=== PATIENT | male | born 1940 | race Caucasian/White ===

== ENCOUNTER → 2017-05-03 | Outpatient (CLI) | payer MEDICARE, BC ==
--- NOTE | 2017-05-03 15:47 | XR ---
Left wrist HISTORY: Trauma and pain 4 views of the left wrist No comparisons Bone mineralization is reduced. Alignment is maintained. No fracture or dislocation is evident. Joint space loss present at the radiocarpal joint. Subchondral sclerosis present at the carpometacarpal zhou int of the first digit with joint space loss. IMPRESSION: Osteoarthritis. Low bone mineralization could limit sensitivity, no acute abnormalities e vident. Follow-up as indicated.
== END | disposition home or self-care (01) ==
LOC: RADXRMAIN 14:42
PROVIDERS: ATTEND Family Medicine
DX: M81.0 Age-related osteoporosis without current pathological fracture (principal)

== ENCOUNTER 2017-07-18 10:42 | Day surgery (SDC) | payer MEDICARE ==
[2017-07-15 09:08] VITALS: BMI 20.9
[~2017-07-18 10:42] MED LIST: LACTATED RINGERS 1,000 ML IV SCH
[2017-07-18 11:17] VITALS: RESP 16; TEMP 98.2
[2017-07-18] MEDS ORDERED: PROPOFOL 10 MG/ML 20 ML VIAL IV ONE (12:05)
[2017-07-18] MEDS ORDERED: LIDOCAINE 1% INJ 10MG/ML (20 ML MDV) ONE (12:05)
--- NOTE | 2017-07-18 12:08 | P.GSHP ---
History of Present Illness H&P Date: 07/18/17 Chief Complaint: History of colon cancer Is a 77-year-old male referred from Dr. Jayy Lux. Patient has a history of colon cancer. He presents today for colonoscopy. Past Medical History Past Medical History: Cancer, Dementia, Pneumonia, Thyroid Disorder Additional Past Medical History / Comment(s): SOB w/exertion, hx of colon Ca X2 , hx throat ca WITH RADIATION, recent blood in stool History of Any Multi-Drug Resistant Organisms: None Reported Past Surgical History: Appendectomy, Bowel Resection Additional Past Surgical History / Comment(s): BOWEL SX X2, throat ca removal, hemorrhoids, colonoscopies Past Anesthesia/Blood Transfusion Reactions: No Reported Reaction Smoking Status: Former smoker - Past Family History Brother(s) Family Medical History: Cancer Additional Family Medical History / Comment(s): BRAIN/SPINE Medications and Allergies Home Medications Medication Instructions Recorded Confirmed Type Levothyroxine Sodium [Synthroid] 50 mcg PO DAILY 07/15/17 07/18/17 History Allergies Allergy/AdvReac Type Severity Reaction Status Date / Time No Known Allergies Allergy Verified 07/18/17 11:07 Surgical - Exam Vital Signs Temp Pulse Resp BP Pulse Ox 98.2 F 96 16 156/103 96 07/18/17 11:14 07/18/17 11:14 07/18/17 11:14 07/18/17 11:14 07/18/17 11:14 - General well developed, no distress - Eyes PERRL - ENT normal pinna - Neck no masses - Respiratory normal expansion - Cardiovascular Rhythm: regular - Abdomen Abdomen: soft, non tender Assessment and Plan Assessment: Her colon cancer. We'll perform colonoscopy.
--- NOTE | 2017-07-18 12:20 | P.OP ---
Date of Procedure: 07/18/17 Preoperative Diagnosis: history of colon cancer, GI bleed Postoperative Diagnosis: External hemorrhoids No evidence of cancer recurrence Procedure(s) Performed: Colonoscopy Anesthesia: MAC Surgeon: David Li Pathology: none sent Condition: stable Disposition: PACU Description of Procedure: Was placed on the endoscopy table in the lateral position. He received IV sedation. Digital rectal exam performed which revealed external hemorrhoids. The flexible colonoscope was then placed patient anus and passed throughout the entire colon. The ileocecal valve was visualized. The cecum, ascending and transverse colon appeared normal. Descending colon appeared normal. The patient appeared to have evidence of a previous colorectal anastomosis this appeared normal. The rectum was normal as well. There is known to bleeding in the colon. Scope was withdrawn for patient.
[2017-07-18 12:26] VITALS: BP 115/76; PULSE 76
== END 2017-07-18 13:15 | disposition home or self-care (01) ==
LOC: ORWHC2ENDO 10:42
PROVIDERS: ATTEND Surgery
DX: K64.4 Residual hemorrhoidal skin tags (principal); K92.2 Gastrointestinal hemorrhage, unspecified; F03.90 Unspecified dementia, unspecified severity, without behavioral disturbance, psychotic disturbance, mood disturbance, and anxiety; E07.9 Disorder of thyroid, unspecified; Z79.899 Other long term (current) drug therapy; Z85.038 Personal history of other malignant neoplasm of large intestine; Z85.89 Personal history of malignant neoplasm of other organs and systems; Z92.3 Personal history of irradiation; Z87.891 Personal history of nicotine dependence; Z98.0 Intestinal bypass and anastomosis status; Z90.49 Acquired absence of other specified parts of digestive tract; Z80.8 Family history of malignant neoplasm of other organs or systems
CPT/HCPCS: 45378; J2001; J2704

== ENCOUNTER → 2017-12-28 | Outpatient (CLI) | payer MEDICARE ==
[2017-12-28 15:48] LABS: T4, Free (Free Thyroxine) 1.32 ng/dL (0.78-2.19)
[2017-12-28 18:52] LABS: Vitamin D 25 Hydroxy 23.5 ng/mL (30.0-100.0)
[2017-12-30 12:31] LABS: Lyme IgG/IgM 0.4 Index
== END | disposition home or self-care (01) ==
LOC: LABWHC1 13:31
PROVIDERS: ATTEND Psychiatry & Neurology Neurology
DX: R41.3 Other amnesia (principal)
CPT/HCPCS: 36415; 82306; 82607; 84439; 84443; 85652; 86618

== ENCOUNTER → 2017-12-31 | Outpatient (CLI) | payer MEDICARE ==
--- NOTE | 2017-12-31 10:56 | CT ---
EXAMINATION TYPE: CT brain wo con DATE OF EXAM: 12/31/2017 COMPARISON: NONE HISTORY: Memory Loss CT DLP: 1090.[address] of the brain was performed. The ventricles, basal cisterns and sulci overlying the cerebral convexities demonstrate moderate enla rgement. There is no evidence for intracranial hemorrhage or sulcal effacement. There is decreased attenuation about the periventricular white matter and deep white matter of both c erebral hemispheres, compatible with chronic small vessel ischemia. Differential diagnosis does inclu de demyelination. No mass effects are seen.No midline shift. Osseous calvarium is intact. If symptoms persist consider MRI. IMPRESSION: 1. Age related atrophic and chronic small vessel ischemic change without acute intracranial process s een at this time.
== END | disposition home or self-care (01) ==
LOC: RADCTMAIN 08:28
PROVIDERS: ATTEND Psychiatry & Neurology Neurology
DX: G31.1 Senile degeneration of brain, not elsewhere classified (principal); I67.82 Cerebral ischemia
CPT/HCPCS: 70450

== ENCOUNTER 2018-07-12 13:26 | Emergency (ER) | payer MEDICARE ==
[2018-07-12 13:35] VITALS: TEMP 97.7
[2018-07-12] MEDS ORDERED: SODIUM CHLORIDE 0.9% 1,000 ML IV STA (15:05)
[2018-07-12 15:08] VITALS: RESP 16
--- NOTE | 2018-07-12 15:39 | XR ---
EXAMINATION TYPE: XR chest 2V DATE OF EXAM: 07/12/2018 COMPARISON: Prior chest x-ray 07/20/2015 HISTORY: Altered mental status, cough TECHNIQUE: Frontal and lateral views of the chest are obtained. FINDINGS: There is no focal air space opacity, pleural effusion, or pneumothorax seen. The cardiac silhouette size is stable, small. Prominent lung volumes and pulmonary artery are compatible with und erlying COPD possible pulmonary artery hypertension. The osseous structures are intact. The aorta i s dense. There is thoracic spondylosis. IMPRESSION: No acute cardiopulmonary process.
--- NOTE | 2018-07-12 15:56 | ED ---
General Adult HPI - General Chief complaint: Recheck/Abnormal Lab/Rx Stated complaint: Dr jones, Dementia Time Seen by Provider: 07/12/18 14:35 Source: family, RN notes reviewed Mode of arrival: ambulatory Limitations: altered mental status - History of Present Illness Initial comments: Patient 78-year-old male presenting to the emergency room today with multiple complaints. Patient presents with his . She does admit that he's had increased symptoms of dementia and having hard time taking care of him. She does not want to discuss this in front of him. They did see the family doctor today. Patient's stating that family doctor was supposed to call here with information about admission. She also admits that she's noticed that he's been more short of breath giving example when he goes out to the mailbox and comes back hurts to sit down to catch his breath. Patient denies any complaints currently. Patient denies any recent fever, chills, abdominal pain, nausea vomiting, back pain, numbness or tingling, headaches or visual changes, or any other complaints. - Related Data Home Medications Medication Instructions Recorded Confirmed No Known Home Medications 07/12/18 07/12/18 Allergies Allergy/AdvReac Type Severity Reaction Status Date / Time No Known Allergies Allergy Verified 07/12/18 14:50 Review of Systems ROS Statement: Those systems with pertinent positive or pertinent negative responses have been documented in the HPI. ROS Other: All systems not noted in ROS Statement are negative. Past Medical History Past Medical History: Cancer, Dementia, Pneumonia, Thyroid Disorder Additional Past Medical History / Comment(s): SOB w/exertion, hx of colon Ca X2 , hx throat ca WITH RADIATION, recent blood in stool History of Any Multi-Drug Resistant Organisms: None Reported Past Surgical History: Appendectomy, Bowel Resection Additional Past Surgical History / Comment(s): BOWEL SX X2, throat ca removal, hemorrhoids, colonoscopies Past Anesthesia/Blood Transfusion Reactions: No Reported Reaction Past Psychological History: No Psychological Hx Reported Smoking Status: Former smoker Past Alcohol Use History: None Reported Past Drug Use History: None Reported - Past Family History Brother(s) Family Medical History: Cancer Additional Family Medical History / Comment(s): BRAIN/SPINE General Exam - General Exam Comments Initial Comments: General: The patient is awake and alert, in no distress, and does not appear acutely ill. Eye: Pupils are equal, round and reactive to light, extra-ocular movements are intact. No nystagmus. There is normal conjunctiva bilaterally. No signs of icterus. Ears, nose, mouth and throat: There are moist mucous membranes and no oral lesions. Neck: The neck is supple, there is no tenderness or JVD. Cardiovascular: There is a regular rate and rhythm. No murmur, rub or gallop is appreciated. Respiratory: Lungs are clear to auscultation, respirations are non-labored, breath sounds are equal. No wheezes, stridor, rales, or rhonchi. Gastrointestinal: Soft, non-distended, non-tender abdomen without masses or organomegaly noted. There is no rebound or guarding present. No CVA tenderness. Bowel sounds are unremarkable. Musculoskeletal: Normal ROM, no tenderness. Strength 5/5. Sensation intact. Pulses equal bilaterally 2+. Neurological: A&O x 3. CN II-XII intact, There are no obvious motor or sensory deficits. Coordination appears grossly intact. Speech is normal. Skin: Skin is warm and dry and no rashes or lesions are noted. Psychiatric: Cooperative, appropriate mood & affect, normal judgment. Limitations: altered mental status Course Vital Signs 07/12/18 07/12/18 07/12/18 13:31 15:00 15:56 Temperature 97.7 F Pulse Rate 90 81 79 Respiratory 20 16 16 Rate Blood Pressure 177/106 144/104 123/64 O2 Sat by Pulse 96 95 97 Oximetry EKG Findings - EKG Comments: EKG Findings:: EKG performed at 1546: Shows a normal sinus rhythm at 59 bpm. NM interval 96. QRS 88. QT/QTc 414/409. No acute ST changes. Medical Decision Making - Medical Decision Making Patient's labs been reviewed unremarkable. Patient is symptomatic in the emergency room. Patient's at bedside stating that they would like him to be admitted for placement for the dementia that's been increasing. I did discuss the case with patient's PCP Dr. De La Torre who states that he would like patient to be admitted for placement. This was discussed with attending physician Dr. Whitman who did discuss the case with Dr Navarro who will agree to observation admit but states that patient would most likely be discharged tomorrow and that he would not have time for placement. I did discuss this in detail with the patient and his family at bedside. It was offered that patient could be admitted to observation. Did advise them that there would be no medical reason for patient to stay in the hospital. Patient family states that they feel comfortable taking him home at this time they will discuss options outpatient with Dr. De La Torre. - Lab Data Result diagrams: 07/12/18 15:35 07/12/18 15:35 Lab Results 07/12/18 07/12/18 07/12/18 Range/Units 15:35 15:35 15:35 WBC 7.3 (3.8-10.6) k/uL RBC 6.13 H (4.30-5.90) m/uL Hgb 17.3 (13.0-17.5) gm/dL Hct 53.1 H (39.0-53.0) % MCV 86.7 (80.0-100.0) fL MCH 28.3 (25.0-35.0) pg MCHC 32.6 (31.0-37.0) g/dL RDW 13.4 (11.5-15.5) % Plt Count 245 (150-450) k/uL Neutrophils % 71 % Lymphocytes % 16 % Monocytes % 6 % Eosinophils % 5 % Basophils % 1 % Neutrophils # 5.2 (1.3-7.7) k/uL Lymphocytes # 1.2 (1.0-4.8) k/uL Monocytes # 0.4 (0-1.0) k/uL Eosinophils # 0.3 (0-0.7) k/uL Basophils # 0.0 (0-0.2) k/uL PT (9.0-12.0) sec INR (<1.2) APTT (22.0-30.0) sec Sodium 140 (137-145) mmol/L Potassium 4.8 (3.5-5.1) mmol/L Chloride 104 (98-107) mmol/L Carbon Dioxide 25 (22-30) mmol/L Anion Gap 11 mmol/L BUN 17 (9-20) mg/dL Creatinine 0.91 (0.66-1.25) mg/dL Est GFR (CKD-EPI)AfAm >90 (>60 ml/min/1.73 sqM) Est GFR (CKD-EPI)NonAf 80 (>60 ml/min/1.73 sqM) Glucose 98 (74-99) mg/dL Calcium 9.8 (8.4-10.2) mg/dL Total Bilirubin 0.7 (0.2-1.3) mg/dL AST 29 (17-59) U/L ALT 20 L (21-72) U/L Alkaline Phosphatase 85 (38-126) U/L Total Creatine Kinase 47 L (55-170) U/L CK-MB (CK-2) 1.1 (0.0-2.4) ng/mL CK-MB (CK-2) Rel Index 2.3 Troponin I <0.012 (0.000-0.034) ng/mL Total Protein 8.0 (6.3-8.2) g/dL Albumin 4.7 (3.5-5.0) g/dL Urine Color Urine Appearance (Clear) Urine pH (5.0-8.0) Ur Specific [place] (1.001-1.035) Urine Protein (Negative) Urine Glucose (UA) (Negative) Urine Ketones (Negative) Urine Blood (Negative) Urine Nitrite (Negative) Urine Bilirubin (Negative) Urine Urobilinogen (<2.0) mg/dL Ur Leukocyte Esterase (Negative) Urine WBC (0-5) /hpf Ur Squamous Epith Cells (0-4) /hpf Urine Mucus (None) /hpf 07/12/18 07/12/18 Range/Units 15:35 16:00 WBC (3.8-10.6) k/uL RBC (4.30-5.90) m/uL Hgb (13.0-17.5) gm/dL Hct (39.0-53.0) % MCV (80.0-100.0) fL MCH (25.0-35.0) pg MCHC (31.0-37.0) g/dL RDW (11.5-15.5) % Plt Count (150-450) k/uL Neutrophils % % Lymphocytes % % Monocytes % % Eosinophils % % Basophils % % Neutrophils # (1.3-7.7) k/uL Lymphocytes # (1.0-4.8) k/uL Monocytes # (0-1.0) k/uL Eosinophils # (0-0.7) k/uL Basophils # (0-0.2) k/uL PT 10.4 (9.0-12.0) sec INR 1.0 (<1.2) APTT 19.1 L (22.0-30.0) sec Sodium (137-145) mmol/L Potassium (3.5-5.1) mmol/L Chloride (98-107) mmol/L Carbon Dioxide (22-30) mmol/L Anion Gap mmol/L BUN (9-20) mg/dL Creatinine (0.66-1.25) mg/dL Est GFR (CKD-EPI)AfAm (>60 ml/min/1.73 sqM) Est GFR (CKD-EPI)NonAf (>60 ml/min/1.73 sqM) Glucose (74-99) mg/dL Calcium (8.4-10.2) mg/dL Total Bilirubin (0.2-1.3) mg/dL AST (17-59) U/L ALT (21-72) U/L Alkaline Phosphatase (38-126) U/L Total Creatine Kinase (55-170) U/L CK-MB (CK-2) (0.0-2.4) ng/mL CK-MB (CK-2) Rel Index Troponin I (0.000-0.034) ng/mL Total Protein (6.3-8.2) g/dL Albumin (3.5-5.0) g/dL Urine Color Yellow Urine Appearance Clear (Clear) Urine pH 5.0 (5.0-8.0) Ur Specific [place] 1.018 (1.001-1.035) Urine Protein Negative (Negative) Urine Glucose (UA) Negative (Negative) Urine Ketones Negative (Negative) Urine Blood Negative (Negative) Urine Nitrite Negative (Negative) Urine Bilirubin Negative (Negative) Urine Urobilinogen <2.0 (<2.0) mg/dL Ur Leukocyte Esterase Negative (Negative) Urine WBC <1 (0-5) /hpf Ur Squamous Epith Cells <1 (0-4) /hpf Urine Mucus Rare H (None) /hpf Disposition Clinical Impression: Dementia Disposition: HOME SELF-CARE Condition: Good Instructions: Dementia (ED) Additional Instructions: Please follow-up with family physician tomorrow as discussed. Please return here to emergency room for any other concerns. Is patient prescribed a controlled substance at d/c from ED?: No Referrals: Jayy Lux DO [Primary Care Provider] - 1-2 days Time of Disposition: 18:53
[2018-07-12 16:08] LABS: Basophils % (A) 1 %; Eosinophils # (A) 0.3 k/uL (0-0.7); Eosinophils % (A) 5 %; HCT 53.1 % (39.0-53.0); HGB 17.3 gm/dL (13.0-17.5); Lymphocytes # (A) 1.2 k/uL (1.0-4.8); Lymphocytes % (A) 16 %; MCH 28.3 pg (25.0-35.0); MCHC 32.6 g/dL (31.0-37.0); MCV 86.7 fL (80.0-100.0); Mean Platelet Volume 6.6; Monocytes # (A) 0.4 k/uL (0-1.0); Monocytes % (A) 6 %; Neutrophils # (A) 5.2 k/uL (1.3-7.7); Neutrophils % (A) 71 %; Platelet Count 245 k/uL (150-450); RBC 6.13 m/uL (4.30-5.90); RDW 13.4 % (11.5-15.5); WBC 7.3 k/uL (3.8-10.6)
[2018-07-12 16:25] LABS: ALT 20 U/L (21-72); AST 29 U/L (17-59); Albumin 4.7 g/dL (3.5-5.0); Alkaline Phosphatase 85 U/L (38-126); Anion Gap 11 mmol/L; Blood Urea Nitrogen 17 mg/dL (9-20); Calcium 9.8 mg/dL (8.4-10.2); Carbon Dioxide 25 mmol/L (22-30); Chloride 104 mmol/L (98-107); Creatine Kinase 47 U/L (55-170); Glucose 98 mg/dL (74-99); Potassium 4.8 mmol/L (3.5-5.1); Sodium 140 mmol/L (137-145); Total Bilirubin 0.7 mg/dL (0.2-1.3)
[2018-07-12 16:26] LABS: Prothrombin Time 10.4 sec (9.0-12.0)
[2018-07-12 16:37] LABS: Partial Thromboplastin Time 19.1 sec (22.0-30.0)
[2018-07-12 16:38] LABS: Creatine Kinase MB 1.1 ng/mL (0.0-2.4); Troponin I <0.012 ng/mL (0.000-0.034)
[2018-07-12 16:39] LABS: Mucus,Urine Rare /hpf; Squamous Epithelial Cell,Urine <1 /hpf (0-4)
[2018-07-12 16:41] LABS: Appearance,Urine Clear (Clear); Bilirubin,Urine Negative (Negative); Blood,Urine Negative (Negative); Color,Urine Yellow; Glucose,Urine (UA) Negative (Negative); Ketones,Urine Negative (Negative); Leukocyte Esterase,Urine Negative (Negative); Nitrite,Urine Negative (Negative); Protein,Urine Negative (Negative); Specific Gravity,Urine 1.018 (1.001-1.035); Urobilinogen,Urine <2.0 mg/dL (<2.0)
[2018-07-12 18:40] VITALS: BP 140/106; PULSE 78
== END 2018-07-12 19:34 | disposition home or self-care (01) ==
LOC: EC 13:26
DX: F03.90 Unspecified dementia, unspecified severity, without behavioral disturbance, psychotic disturbance, mood disturbance, and anxiety (principal); R06.02 Shortness of breath; Z85.038 Personal history of other malignant neoplasm of large intestine; Z85.818 Personal history of malignant neoplasm of other sites of lip, oral cavity, and pharynx; Z87.891 Personal history of nicotine dependence
CPT/HCPCS: 36415; 71046; 80053; 81003; 82550; 82553; 84484; 85025; 85610; 85730; 93005; 99284

== ENCOUNTER 2019-06-01 09:37 | Day surgery (SDC) | payer MEDICARE ==
[2019-05-31 08:44] VITALS: BMI 18.0
[~2019-06-01 09:37] MED LIST changes: +ALPRAZolam 0.25 MG TAB PO PRN; +ALPRAZolam 0.5 MG TAB PO PRN; +ASPIRIN 325 MG TAB PO ONE; +ATORVASTATIN 80 MG TAB PO ONE; -LACTATED RINGERS 1,000 ML IV SCH; +NITROGLYCERIN SL TABS 0.4 MG TAB SUBLINGUAL PRN; +SODIUM CHLORIDE 0.9% 1,000 ML in EMPTY BAG 1 BAG IV ONE
[2019-06-01] MEDS ORDERED: SODIUM CHLORIDE 0.9% 1,000 ML IV ONE (09:48)
[2019-06-01] MEDS ORDERED: MIDAZOLAM 2 MG/2 ML VIAL IV ONE (10:21)
[2019-06-01] MEDS ORDERED: LIDOCAINE 1% INJ 10MG/ML (20 ML MDV) SQ ONE (10:29)
[2019-06-01] MEDS ORDERED: IOPAMIDOL-370 125ML BTL INJ ONE (10:47)
[2019-06-01] MEDS ORDERED: RX INFO: IV CONTRAST WAS GIVEN 1 EACH MISC MISCELLANE PRN (10:48)
--- NOTE | 2019-06-01 10:58 | P.PCN ---
Date of Procedure: 06/01/19 Operative Findings: CARDIAC CATHETERIZATION PERFORMING PHYSICIAN: Jayme Kraus MD, RPVI PROCEDURE PERFORMED: 1. Right heart catheterization 2. Selective right and left coronary angiogram 3. Left heart catheterization INDICATION: This is a pleasant 79-year-old gentleman with a past medical history significant for hypertension and dyslipidemia who continues to have increasing in the shortness of breath which was concerning for angina. The patient was seen by Dr. Minor who ruled out a pulmonary etiology for the shortness of breath and because of that the patient scheduled to undergo a right and left heart catheterization. COMPLICATION: None APPROACH: Right common femoral artery LEVEL OF SEDATION: Moderate with a sedation duration off 19 minutes PROCEDURE DESCRIPTION: After obtaining an informed consent, the patient was brought to cardiac union laborer. Local anesthesia was performed using lidocaine subcutaneously. The right common femoral vein was cannulated using micropuncture technique, the micropuncture wire passed easily then I placed an 8-Irish sheath over 035 wire. The right common femoral artery was cannulated using Seldinger technique, the guidewire passed easily, following that we advanced a 6 Irish sheath dilator assembly, the wire and dilator were removed and sheath was flushed. I did right heart catheterization using 6-Irish [place] catheter. It was positioned at the level of the wedge then it was pulled back into PA, RV, and RA. Selective right and left coronary angiogram using a 6-Irish JR4 and JL catheters. Following that we did left heart catheterization using 6-Irish pigtail catheter. The procedure was completed there was no complication. HEMODYNAMICS: 1. The pulmonary capillary wedge pressure was 2 mmHg 2. PA pressures were as follow systolic 15, diastolic 9, and mean of 10 mmHg 3. RV pressures were as follow systolic 15 and end-diastolic of 1 mmHg 4. RA pressure was 1 mmHg 5. The LVEDP was 5 mmHg SELECTIVE CORONARY ANGIOGRAM: The right coronary artery: Small caliber vessel and on dominant vessel and appears to be angiographically normal. Left main: Angiographically normal. Bifurcates into LCx and LAD. The left circumflex: The LCx is a large caliber vessel and a dominant vessel. The proximal LCx appears to be angiographically normal. Gives rises into a small to medium gretchen jona OM1 which seems to be angiographically normal. The mid LCx has eccentric lesion appears to be in the range of 50%. Gives rises into second OM branch which appears to be angiographically normal. The LCx distally appears to be angiographically normal and bifurcates into PDA and PLV branches. The left anterior descending artery: The proximal LAD appeared to be angiographically normal. It gives rises into the first diagonal branch which seems to be angiographically normal. The mid LAD is angiographically normal and gives rises into a second diagonal branch which seems to be angiographically normal. The LAD distally appears to be angiographically normal. CONCLUSION: 1. Normal right heart pressures 2. Intermediate disease involving the mid LCx. POSTPROCEDURE MANAGEMENT: 1. Medical treatment 2. Follow-up with the patient
[2019-06-01] MEDS ORDERED: SODIUM CHLORIDE 0.9% 1,000 ML IV SCH (11:00)
[2019-06-01 15:07] VITALS: BP 122/61; PULSE 65; RESP 17; TEMP 97.5
== END 2019-06-01 18:25 ==
LOC: CATHCVL 09:37 → 1SOBS 13:37 → CATHCVL 18:25
PROVIDERS: ATTEND Internal Medicine Interventional Cardiology
DX: I25.10 Atherosclerotic heart disease of native coronary artery without angina pectoris (principal); I10 Essential (primary) hypertension; E78.5 Hyperlipidemia, unspecified; Z72.0 Tobacco use; Z82.49 Family history of ischemic heart disease and other diseases of the circulatory system; Z79.890 Hormone replacement therapy; Z79.899 Other long term (current) drug therapy
CPT/HCPCS: 93460; C1751; C1894 ×2; C1769 ×2; J2250; J2001; Q9967

== ENCOUNTER 2019-08-05 09:55 | Observation (INO) | payer MEDICARE ==
[2019-08-05] MEDS ORDERED: SODIUM CHLORIDE 0.9% 1,000 ML IV STA (10:17)
[2019-08-05] MEDS ORDERED: ASPIRIN 81 MG PO STA (10:17)
[2019-08-05 10:18] LABS: Glucose,Whole Blood 93 mg/dL (75-99)
--- NOTE | 2019-08-05 10:25 | ED ---
General Adult HPI <Issa Rosado - Last Filed: 08/05/19 14:23> - General Source: patient Mode of arrival: wheelchair Limitations: no limitations <Baldemar Willis - Last Filed: 08/05/19 14:53> - General Chief complaint: Shortness of Breath Stated complaint: SOB Time Seen by Provider: 08/05/19 10:06 - History of Present Illness Initial comments: Patient is an 79-year-old male with history of dementia, dyslipidemia and hypertension presenting to emergency Department with chief complaint of shortn ess of breath. The states that the patient was getting ready for oriental [employer] when he suddenly grabbed his chest and upper abdominal region and groan in pain. The states the patient went down on the floor and was even crying due to the pain. The states the patient did not feel clammy or vomiting. states the patient developed sudden shortness of breath right after. Patient was never officially diagnosed with COPD but is a lifelong smoker with history of throat cancer secondary to smoking. Patient does see a recovery collector. Patient does have wheezing at baseline but does not use oxygen at home. states the patient has not taken his aspirin the last 2 days. She reports the patient sees a entry level software engineer, Dr. Kraus. (Baldemar Willis) - Related Data Home Medications Medication Instructions Recorded Confirmed Atenolol 25 mg PO DAILY 05/31/19 08/05/19 Atorvastatin [Lipitor] 20 mg PO DAILY 05/31/19 08/05/19 Cholecalciferol [Vitamin D3] 400 unit PO DAILY@1200 05/31/19 08/05/19 Cyanocobalamin (Vitamin B-12) 1,000 mcg PO DAILY 05/31/19 08/05/19 [Vitamin B-12] Levothyroxine Sodium [Synthroid] 50 mcg PO DAILY 05/31/19 08/05/19 Vitamin E 400 unit PO DAILY 05/31/19 08/05/19 Aspirin 325 mg PO ONCE 06/01/19 08/05/19 Allergies Allergy/AdvReac Type Severity Reaction Status Date / Time No Known Allergies Allergy Verified 08/05/19 12:57 Review of Systems ROS Other: All systems not noted in ROS Statement are negative. <Issa Rosado - Last Filed: 08/05/19 14:23> ROS Other: All systems not noted in ROS Statement are negative. <Baldemar Willis - Last Filed: 08/05/19 14:53> ROS Statement: Those systems with pertinent positive or pertinent negative responses have been documented in the HPI. Past Medical History Past Medical History: Cancer, Dementia, Pneumonia, Thyroid Disorder Additional Past Medical History / Comment(s): SOB w/exertion, hx of colon Ca X2, hx throat ca WITH RADIATION, recent blood in stool History of Any Multi-Drug Resistant Organisms: None Reported Past Surgical History: Appendectomy, Bowel Resection Additional Past Surgical History / Comment(s): BOWEL SX X2, throat ca removal, hemorrhoids, colonoscopies, Radiation for throat cancer approx. 15 years ago. Past Anesthesia/Blood Transfusion Reactions: No Reported Reaction Past Psychological History: No Psychological Hx Reported Smoking Status: Former smoker Past Alcohol Use History: None Reported Past Drug Use History: None Reported - Past Family History Brother(s) Family Medical History: Cancer Additional Family Medical History / Comment(s): BRAIN/SPINE <Baldemar Willis - Last Filed: 08/05/19 14:53> General Exam Limitations: no limitations General appearance: alert, in no apparent distress Head exam: Present: atraumatic, normocephalic, normal inspection Eye exam: Present: normal appearance, PERRL, EOMI Pupils: Present: normal accommodation ENT exam: Present: normal exam, normal oropharynx, mucous membranes moist, TM's normal bilaterally, normal external ear exam Neck exam: Present: normal inspection, full ROM Respiratory exam: Present: normal lung sounds bilaterally. Absent: wheezes, chest wall tenderness, accessory muscle use Cardiovascular Exam: Present: regular rate, normal rhythm, normal heart sounds GI/Abdominal exam: Present: soft. Absent: distended, tenderness, guarding Extremities exam: Present: normal inspection, full ROM, normal capillary refill, other (+2 ulnar and radial pulses bilaterally.). Absent: pedal edema Back exam: Present: normal inspection, full ROM. Absent: tenderness Neurological exam: Present: alert, oriented X3 Psychiatric exam: Present: normal affect, normal mood Skin exam: Present: warm, dry, intact, normal color <Baldemar Willis - Last Filed: 08/05/19 14:53> Course Vital Signs 08/05/19 08/05/1920 09:59 10:10 10:14 Temperature 97.4 F L Pulse Rate 75 Pulse Rate [ 62 Financial Institution President ] Respiratory 22 Rate Blood Pressure 127/85 O2 Sat by Pulse 92 L 99 Oximetry 08/05/19 13:59 Temperature 98.3 F Pulse Rate 59 L Pulse Rate [ Financial Institution President ] Respiratory 18 Rate Blood Pressure 140/80 O2 Sat by Pulse 96 Oximetry EKG Findings - EKG Comments: EKG Findings:: Sinus arrhythmia, no ST changes, no inverted T waves. Vent ricular rate 62, NH interval 136, QRS duration 98, QTc 424 <Baldemar Wlilis - Last Filed: 08/05/19 14:53> Medical Decision Making - Lab Data Result diagrams: 08/05/19 10:19 08/05/19 10:19 <Issa Rosado - Last Filed: 08/05/19 14:23> - Lab Data Result diagrams: 08/05/19 10:19 08/05/19 10:19 <Baldemar Willis - Last Filed: 08/05/19 14:53> - Medical Decision Making I spoke with Dr. Ambriz and he was happy to be on consult but he did not think there was going to be any intervention for the dissection because it was chronic. He did want the patient on atenolol 25 mg every 8 hours. He wanted the blood pressure under 140 systolic and if it gets greater the primary is to be contacted. (Issa Rosado) Patient is an 79-year-old male with history of dementia, dyslipidemia and hypertension presenting to the emergency department with a chief complaint of shortness of breath. Physical examination is not showing any signs of wheezing. Patient is not complaining of any chest pain back pain abdominal pain at this time. Patient is completely symptomatic in the ED. His states the patient might not be fully truthful with his answers. EKG shows sinus arrhythmia with no ST changes or any T-wave inversions. It compares very similarly to his most recent one. Chest x-ray was unremarkable. Initial troponin is negative. CBC CMP unremarkable. Elevated d-dimer over about 4.5. CT of chest shows no signs of obvious PE but does show possible aortic dissection. CTA obtained shows a type B aortic dissection from mid distal aorta to the aortic bifurcation. Although this appears to be chronic. Dr. Navarro was consulted. Also was consulted and would like to have the patient on 25 mg of atenolol every 8. PCP needs to be notified of blood pressure 140 systolic. Patient will be admitted. Case discussed with Dr. Rosado. (Baldemar Willis) - Lab Data Lab Results 08/05/19 08/05/19 08/05/19 Range/Units 10:15 10:19 10:19 WBC 7.6 (3.8-10.6) k/uL RBC 5.72 (4.30-5.90) m/uL Hgb 16.3 (13.0-17.5) gm/dL Hct 50.3 (39.0-53.0) % MCV 88.0 (80.0-100.0) fL MCH 28.5 (25.0-35.0) pg MCHC 32.4 (31.0-37.0) g/dL RDW 12.6 (11.5-15.5) % Plt Count 235 (150-450) k/uL Neutrophils % 62 % Lymphocytes % 22 % Monocytes % 6 % Eosinophils % 7 % Basophils % 2 % Neutrophils # 4.7 (1.3-7.7) k/uL Lymphocytes # 1.6 (1.0-4.8) k/uL Monocytes # 0.5 (0-1.0) k/uL Eosinophils # 0.5 (0-0.7) k/uL Basophils # 0.1 (0-0.2) k/uL PT (9.0-12.0) sec INR (<1.2) APTT (22.0-30.0) sec D-Dimer (<0.60) mg/L FEU Sodium 142 (137-145) mmol/L Potassium 4.2 (3.5-5.1) mmol/L Chloride 107 (98-107) mmol/L Carbon Dioxide 24 (22-30) mmol/L Anion Gap 11 mmol/L BUN 17 (9-20) mg/dL Creatinine 1.05 (0.66-1.25) mg/dL Est GFR (CKD-EPI)AfAm 78 (>60 ml/min/1.73 sqM) Est GFR (CKD-EPI)NonAf 67 (>60 ml/min/1.73 sqM) Glucose 97 (74-99) mg/dL POC Glucose (mg/dL) 93 (75-99) mg/dL POC Glu Communications Editor Krystle Sheridan Calcium 10.0 (8.4-10.2) mg/dL Magnesium 2.2 (1.6-2.3) mg/dL Total Bilirubin 1.0 (0.2-1.3) mg/dL AST 24 (17-59) U/L ALT 10 (4-49) U/L Alkaline Phosphatase 98 (38-126) U/L Troponin I (0.000-0.034) ng/mL Total Protein 7.3 (6.3-8.2) g/dL Albumin 4.3 (3.5-5.0) g/dL 08/05/19 08/05/19 Range/Units 10:19 10:19 WBC (3.8-10.6) k/uL RBC (4.30-5.90) m/uL Hgb (13.0-17.5) gm/dL Hct (39.0-53.0) % MCV (80.0-100.0) fL MCH (25.0-35.0) pg MCHC (31.0-37.0) g/dL RDW (11.5-15.5) % Plt Count (150-450) k/uL Neutrophils % % Lymphocytes % % Monocytes % % Eosinophils % % Basophils % % Neutrophils # (1.3-7.7) k/uL Lymphocytes # (1.0-4.8) k/uL Monocytes # (0-1.0) k/uL Eosinophils # (0-0.7) k/uL Basophils # (0-0.2) k/uL PT 10.7 (9.0-12.0) sec INR 1.0 (<1.2) APTT 25.3 (22.0-30.0) sec D-Dimer 4.59 H (<0.60) mg/L FEU Sodium (137-145) mmol/L Potassium (3.5-5.1) mmol/L Chloride (98-107) mmol/L Carbon Dioxide (22-30) mmol/L Anion Gap mmol/L BUN (9-20) mg/dL Creatinine (0.66-1.25) mg/dL Est GFR (CKD-EPI)AfAm (>60 ml/min/1.73 sqM) Est GFR (CKD-EPI)NonAf (>60 ml/min/1.73 sqM) Glucose (74-99) mg/dL POC Glucose (mg/dL) (75-99) mg/dL POC Glu Communications Editor ID Calcium (8.4-10.2) mg/dL Magnesium (1.6-2.3) mg/dL Total Bilirubin (0.2-1.3) mg/dL AST (17-59) U/L ALT (4-49) U/L Alkaline Phosphatase (38-126) U/L Troponin I <0.012 (0.000-0.034) ng/mL Total Protein (6.3-8.2) g/dL Albumin (3.5-5.0) g/dL Disposition <Issa Rosado - Last Filed: 08/05/19 14:23> Is patient prescribed a controlled substance at d/c from ED?: No Time of Disposition: 14:53 <Baldemar Willis - Last Filed: 08/05/19 14:53> Clinical Impression: Aortic dissection, thoracic Disposition: ADMITTED IP TO THIS HOSP Condition: Good Referrals: Marek Navarro MD [Primary Care Provider] - 1-2 days
[2019-08-05 10:29] LABS: Basophils # (A) 0.1 k/uL (0-0.2); Basophils % (A) 2 %; Eosinophils # (A) 0.5 k/uL (0-0.7); Eosinophils % (A) 7 %; HCT 50.3 % (39.0-53.0); HGB 16.3 gm/dL (13.0-17.5); Lymphocytes # (A) 1.6 k/uL (1.0-4.8); Lymphocytes % (A) 22 %; MCH 28.5 pg (25.0-35.0); MCHC 32.4 g/dL (31.0-37.0); Monocytes # (A) 0.5 k/uL (0-1.0); Monocytes % (A) 6 %; Neutrophils # (A) 4.7 k/uL (1.3-7.7); Neutrophils % (A) 62 %; Platelet Count 235 k/uL (150-450); RBC 5.72 m/uL (4.30-5.90); RDW 12.6 % (11.5-15.5); WBC 7.6 k/uL (3.8-10.6)
[2019-08-05 10:41] LABS: Albumin 4.3 g/dL (3.5-5.0); Magnesium 2.2 mg/dL (1.6-2.3); Potassium 4.2 mmol/L (3.5-5.1); Total Protein 7.3 g/dL (6.3-8.2)
--- NOTE | 2019-08-05 10:45 | XR ---
EXAMINATION TYPE: XR chest 2V DATE OF EXAM: 08/05/2019 COMPARISON: 07/12/2018 and 04/03/2019 HISTORY: 79-year-old male with chest pain TECHNIQUE: AP and lateral views FINDINGS: Heart normal size. Mild interstitial prominence and hyperinflation. Some focal density at the left ba se has linear appearance. Possible more nodular density at the peripheral left base. On the lateral v iew, there is additional focal density superiorly and anteriorly. No pleural effusion. IMPRESSION: 1. COPD. 2. Suspect bandlike atelectasis at the left base. A more nodular density is present here as well. Cor relate to exclude early infiltrate. Follow up after any potential treatment to ensure clearance. 3. The lateral view shows an additional focal opacity anteriorly at the upper lung level. Infiltrate here is not excluded.
[2019-08-05 11:03] LABS: Partial Thromboplastin Time 25.3 sec (22.0-30.0); Prothrombin Time 10.7 sec (9.0-12.0)
[2019-08-05 11:05] LABS: D-Dimer 4.59 mg/L FEU (<0.60)
--- NOTE | 2019-08-05 11:55 | CT ---
EXAMINATION TYPE: CT chest angio for PE DATE OF EXAM: 08/05/2019 COMPARISON: Radiographs same day HISTORY: 79-year-old male SOB, syncope, elevated d dimer TECHNIQUE: Contiguous axial scanning of the chest performed with IV Contrast, patient injected with 7 6 mL of Isovue 370. Delayed images through the kidneys were obtained. Coronal/sagittal reconstruction s performed. CT DLP: 180.2 mGycm Automated exposure control for dose reduction was used. FINDINGS: Heart normal size without pericardial effusion. No reflux of contrast into the hepatic veins. Coronar y vessel calcifications are present. Moderate atherosclerotic calcifications aortic arch with conventional branching anatomy. Mild aneurys m ascending aorta head 3.0 cm. Some crescentic low density is present along the left lateral aspect o f the mid to lower descending thoracic aorta. Difficult to determine if this represents some admixtur e of contrast and blood on this phase of imaging. Satisfactory opacification of the pulmonary arterial system. There is breathing motion at the lung ba ses. Allowing for this limitation, no definite pulmonary embolus is seen. Some dependent mucoid secretions within the mid trachea and some flattening of the right mainstem bro nchus, refer to axial image 65. There is moderate centrilobular emphysema and mild diffuse bronchial wall thickening. Some curvilinea r medial left upper lobe density suggesting scarring or atelectasis. Some nodular subpleural atelectasis posterior right midlung. 7 mm nodularity right mid lung along the major fissure probably intrafissural lymph node. Six-month f ollow-up recommended to reassess. Additional 6 mm posterior left lower lobe pulmonary nodule axial image 92 she also be reassessed at f ollow-up. A right hilar lymph node at 1.3 cm. Otherwise, no thoracic lymphadenopathy by CT size criteria. Breathing motion within the visualized upper abdomen. 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 Normal variant sternal foramina. IMPRESSION: 1. BREATHING MOTION WITHIN THE LOWER LUNGS. ALLOWING FOR THIS LIMITATION, NO DEFINITE PULMONARY EMBOL US. 2. SUSPICIOUS BUT EQUIVOCAL FINDING ALONG THE MID TO LOWER DESCENDING THORACIC AORTA. THERE IS SOME V AGUE CRESCENTIC HYPODENSITY NOT WELL EVALUATED ON THIS PHASE OF IMAGING. A TYPE B AORTIC DISSECTION I S NOT EXCLUDED AT THIS TIME. CORRELATE WITH PATIENT'S RENAL FUNCTION TO DETERMINE IF IT IS SAFE TO RE -BOLUS THE PATIENT. 3. COPD WITH MODERATE EMPHYSEMA. A COUPLE PULMONARY NODULES MEASURING UP TO 7 MM AND A PROMINENT 1.3 CM RIGHT HILAR LYMPH NODE. 6 MONTH FOLLOW-UP CT RECOMMENDED TO REASSESS. 4. SOME MUCOID DEGREE WITHIN THE MID TRACHEA. POSSIBLE RIGHT MAINSTEM BRONCHOMALACIA. IMPRESSION POINTS #[address] LOTT IN THE ER AT 11:50 AM.
--- NOTE | 2019-08-05 13:02 | CT ---
EXAMINATION TYPE: CT angio thor/abd pel aorta DATE OF EXAM: 08/05/2019 COMPARISON: Correlation PET CT same day HISTORY: 79-year-old male abnormal CTA. TECHNIQUE: Contiguous axial scanning of the chest performed without and with IV Contrast, patient inj ected with 80 mL of Isovue 370. Postcontrast scanning was continued down through the pelvis. Coronal/ sagittal reconstructions performed. 3-D reconstructions generated on a dedicated independent workstat ion. CT DLP: 671.3 mGycm Automated exposure control for dose reduction was used. FINDINGS: Repeat scanning for aortic imaging. The crescentic density beginning at the mid descending thoracic a sherman shows low-density excluding acute intramural hematoma. There is no opacification of this region. Mid descending thoracic aorta at the start of the abnormality measures 2.8 cm, axial image 69. Distal descending thoracic aorta measures 3.2 cm. The peripheral crescent of low density continues in the upper abdominal aorta along the left posterol ateral aspect and below the renal artery takeoffs, swings to the right lateral aspect. Prior to the b ifurcation, it circumferentially surrounds a true lumen which is narrowed to 1.3 cm with the aortic c ross-sectional dimension of 3.9 x 3.3 cm. Chronic appearing dissection terminates at the bifurcation. All of the visceral artery takeoffs arise from the true lumen. Moderate stool burden. No dilated small bowel, free fluid, or free air. No mesenteric or retroperiton eal lymphadenopathy. No pericolonic inflammatory change. Prostatomegaly at 4.8 cm wide. Multiple pelvic phlebolith. Circumferential bladder wall thickening. Bones: Moderate degenerative changes of the hips. Mild degenerative change SI joints. Degenerative ch anges throughout the mid to lower lumbar spine and dish within the mid to lower thoracic spine. IMPRESSION: 1. TYPE B AORTIC DISSECTION BEGINNING AT THE MID DESCENDING THORACIC AORTA AND ENDING DOWN AT THE AOR TIC BIFURCATION. 2. THIS DISSECTION APPEARS TO BE CHRONIC AND LIKELY THROMBOSED THERE IS NO CONTRAST FILLING THE FA LSE LUMEN. 3. THE LOWER DESCENDING THORACIC AORTA IS MILDLY ANEURYSMAL AT 3.2 CM. LARGER 3.9 x 3.3 CM ANEURYSM O F THE DISTAL ABDOMINAL AORTA WITH A CIRCUMFERENTIAL, THROMBOSED FALSE LUMEN MILDLY NARROWING THE TRUE LUMEN DOWN TO 1.3 CM. 4. ALL OF THE MAJOR VISCERAL ARTERY TAKEOFFS ARE FROM THE TRUE LUMEN. 5. MILD PROSTATOMEGALY OF 4.8 CM. CIRCUMFERENTIAL BLADDER WALL THICKENING COULD REPRESENT CHRONIC CRUZITO DDER WALL HYPERTROPHY OR CYSTITIS. CLINICALLY CORRELATE. 6. REFER TO CTA CHEST PERFORMED EARLIER TODAY FOR ADDITIONAL FINDINGS/IMPRESSION REGARDING THE CHEST.
[2019-08-05] MEDS ORDERED: ONDANSETRON 4 MG/2 ML VIAL IVP PRN (14:44)
[2019-08-05] MEDS ORDERED: NALOXONE 0.4 MG/ML 1 ML VIAL IV PRN (14:44)
[2019-08-05] MEDS ORDERED: MORPHINE SULFATE 4 MG/ML SYRINGE IV PRN (14:44)
[2019-08-05] MEDS ORDERED: HYDROcodone/APAP 5-325MG 1 EACH TAB PO PRN (14:44)
[2019-08-05] MEDS: ALPRAZolam 0.25 MG TAB PO PRN ×2 (15:29→21:06)
[2019-08-05] MEDS: ATENOLOL 25 MG TAB PO SCH ×2 (17:54→23:22)
[2019-08-05] MEDS: SODIUM CHLORIDE 0.9% 1,000 ML IV SCH (17:55)
--- NOTE | 2019-08-06 09:29 | P.GSCN ---
History of Present Illness Consult date: 08/06/19 Reason for Consult: Chronic type B aortic dissection Requesting physician: Baldemar Willis History of present illness: This is an 79-year-old debilitated, demented gentleman who follows on an outpatient basis with Dr. Jayy Lux. He has a previous medical history of CAD, CAD, hypertension, hyperlipidemia, throat cancer status post radiation, colon cancer status post bowel resection, hypothyroid, and previous tobacco dependence. He presented to [facility] emergency room with complaints of sudden onset chest and upper abdominal pain associated with shortness of breath but no other aggravating or alleviating symptoms. Apparently the pain was quite severe. By the time the patient got to the emergency room he was noted to be asymptomatic. Lab work was unremarkable. Chest x-ray demonstrated COPD, atelectasis, possible infiltrates in the left base. CTA of the chest demonstrated no pulmonary embolus, but there was a evidence of a type B aortic dissection, along with COPD and some pulmonary nodules. Follow-up CT angio of the thoracic and abdominal aorta confirmed type B aortic dissection, likely chronic as there was no contrast filling the false lumen. The patient was admitted for further evaluation, Dr. Ambriz from cardiothoracic surgery was consulted for treatment recommendations for the dissection, and Dr. Ambriz did speak with the emergency room physicians. Review of Systems Review of systems was completed and was negative except as noted the HPI Past Medical History Past Medical History: Coronary Artery Disease (CAD), Cancer, Dementia, Hyperlipidemia, Hypertension, Memory Impairment, Pneumonia, Thyroid Disorder Additional Past Medical History / Comment(s): SOB w/exertion, hx of colon Ca X2, hx throat ca WITH RADIATION History of Any Multi-Drug Resistant Organisms: None Reported Past Surgical History: Appendectomy, Bowel Resection, Heart Catheterization Additional Past Surgical History / Comment(s): BOWEL SX X2, throat ca removal, hemorrhoids, colonoscopies, Radiation for throat cancer approx. 15 years ago. Past Anesthesia/Blood Transfusion Reactions: No Reported Reaction Past Psychological History: No Psychological Hx Reported Additional Psychological History / Comment(s): Dementia Smoking Status: Former smoker Past Alcohol Use History: None Reported Additional Past Alcohol Use History / Comment(s): QUIT SMOKING 2007, SMOKED SINCE AGE 13 (1953) SMOKED 1-2PPD Past Drug Use History: None Reported - Past Family History Brother(s) Family Medical History: Cancer Additional Family Medical History / Comment(s): BRAIN/SPINE Medications and Allergies Home Medications Medication Instructions Recorded Confirmed Type Atenolol 25 mg PO DAILY 05/31/19 08/05/19 History Atorvastatin [Lipitor] 20 mg PO DAILY 05/31/19 08/05/19 History Cholecalciferol [Vitamin D3] 400 unit PO DAILY@1200 05/31/19 08/05/19 History Cyanocobalamin (Vitamin B-12) 1,000 mcg PO DAILY 05/31/19 08/05/19 History [Vitamin B-12] Levothyroxine Sodium [Synthroid] 50 mcg PO DAILY 05/31/19 08/05/19 History Vitamin E 400 unit PO DAILY 05/31/19 08/05/19 History Aspirin 325 mg PO ONCE 06/01/19 08/05/19 History Allergies Allergy/AdvReac Type Severity Reaction Status Date / Time No Known Allergies Allergy Verified 08/05/19 12:57 Surgical - Exam Vital Signs Temp Pulse Resp BP Pulse Ox 97.4 F L 75 22 127/85 92 L 08/05/19 09:59 08/05/19 09:59 08/05/19 09:59 08/05/19 09:59 08/05/19 09:59 - General well developed, well nourished, no distress, no pain, chronically ill - Eyes normal ocular movement - ENT decreased hearing, poor usp - Neck no masses, no bruits, trachea midline - Respiratory Lungs sounds clear but diminished bilaterally. Respirations even, nonlabored. Currently on 2 L nasal cannula with oxygen saturation 99%. No chest wall deformities. No clubbing or cyanosis present. - Cardiovascular S1, S2 present. Slow but regular rate and rhythm, sinus bradycardia on telemetry. Palpable peripheral pulses bilaterally. No edema present. No calf pain or tenderness noted. - Abdomen Abdomen: soft, non tender, bowel sounds - Genitourinary Deferred - Rectum Deferred - Integumentary no rash, no growths - Neurologic normal coordination, normal sensation - Musculoskeletal normal posture - Psychiatric oriented to time, oriented to person, oriented to place, speech is normal Results - Labs 08/05/19 10:19 08/05/19 10:19 Abnormal Lab Results - Last 24 Hours (Table) 08/05/19 Range/Units 10: D-Dimer 4.59 H (<0.60) mg/L [facility] Diabetes panel 08/05/19 Range/Units 10:19 Sodium 142 (137-145) mmol/L Potassium 4.2 (3.5-5.1) mmol/L Chloride 107 (98-107) mmol/L Carbon Dioxide 24 (22-30) mmol/L BUN 17 (9-20) mg/dL Creatinine 1.05 (0.66-1.25) mg/dL Glucose 97 (74-99) mg/dL Calcium 10.0 (8.4-10.2) mg/dL AST 24 (17-59) U/L ALT 10 (4-49) U/L Alkaline Phosphatase 98 (38-126) U/L Total Protein 7.3 (6.3-8.2) g/dL Albumin 4.3 (3.5-5.0) g/dL Calcium panel 08/05/19 Range/Units 10:19 Calcium 10.0 (8.4-10.2) mg/dL Albumin 4.3 (3.5-5.0) g/dL Pituitary panel 08/05/19 Range/Units 10:19 Sodium 142 (137-145) mmol/L Potassium 4.2 (3.5-5.1) mmol/L Chloride 107 (98-107) mmol/L Carbon Dioxide 24 (22-30) mmol/L BUN 17 (9-20) mg/dL Creatinine 1.05 (0.66-1.25) mg/dL Glucose 97 (74-99) mg/dL Calcium 10.0 (8.4-10.2) mg/dL Adrenal panel 08/05/19 Range/Units 10:19 Sodium 142 (137-145) mmol/L Potassium 4.2 (3.5-5.1) mmol/L Chloride 107 (98-107) mmol/L Carbon Dioxide 24 (22-30) mmol/L BUN 17 (9-20) mg/dL Creatinine 1.05 (0.66-1.25) mg/dL Glucose 97 (74-99) mg/dL Calcium 10.0 (8.4-10.2) mg/dL Total Bilirubin 1.0 (0.2-1.3) mg/dL AST 24 (17-59) U/L ALT 10 (4-49) U/L Alkaline Phosphatase 98 (38-126) U/L Total Protein 7.3 (6.3-8.2) g/dL Albumin 4.3 (3.5-5.0) g/dL - Imaging Chest x-ray: report reviewed, image reviewed CT scan - chest: report reviewed, image reviewed EKG: image reviewed Assessment and Plan Assessment: 1. Chronic type B aortic dissection 2. History of CAD 3. Hypertension 4. Hyperlipidemia 5. COPD 6. Previous tobacco dependence 7. History of throat cancer status post radiation 8. History of colon cancer status post bowel resection 9. Hypothyroid Plan: The patient was seen and examined at the bedside. Chart/diagnostics were review ed. The case was discussed in detail between Dr. Ambriz and the emergency room physicians. No surgical intervention warranted as this dissection appears to be chronic. Recommend strict blood pressure control with beta blockers. Continue to avoid smoking. Medical management of other comorbidities per primary care service. Thank you for this consult. Please contact us with any further questions. Time with Patient: Greater than 30
[2019-08-06] MEDS: SODIUM CHLORIDE 0.9% 1,000 ML IV SCH (09:48)
[2019-08-06] MEDS: ATENOLOL 25 MG TAB PO SCH ×3 (09:51→23:26)
[2019-08-06 11:33] VITALS: BMI 17.4
--- NOTE | 2019-08-06 14:07 | P.HPIM ---
History of Present Illness H&P Date: 08/06/19 This is an 79-year-old male patient of Mily Gerard and Efra with history of dementia, dyslipidemia, myocardial infarction, dementia, hypothyroidism, colon cancer with recurrence, throat cancer, remote history of tobacco use. Patient had left the bathroom and lost all his strength and his whole body and grabbed his chest and upper abdomen was groaning in pain. Patient went down on the floor was crying due to the pain there was no nausea or vomiting. No diarrhea. Patient also had some shortness of breath following that. and hypertension presenting to emergency Department with chief complaint of shortness of breath. The states that the patient was getting ready for jain when he suddenly grabbed his chest and upper abdominal region and groan in pain. The states the patient went down on the floor and was even crying due to the pain. The states the patient did not feel clammy or vomiting. Patient's states that he has had a recent ultrasound of the carotids and stress test done as well as patient underwent heart catheterization. This was done June 01 of revealed intermittent disease involving the mid LCA. Dr. Kraus was also evaluated aortic aneurysm as an outpatient. At the time of this evaluation. Patient denies having any abdominal pain, no back pain, no chest pain, no shortness of breath. Patient was brought into [facility] emergency center for evaluation. Chest x-ray demonstrated COPD, atelectasis, possible infiltrates in the left base. CTA of the chest demonstrated no pulmonary embolus, but there was a evidence of a type B aortic dissection, along with COPD and some pulmonary nodules. Follow-up CT angio of the thoracic and abdominal aorta confirmed type B aortic dissection, likely chronic as there was no contrast filling the false lumen. Review of Systems ROS unobtainable: due to mental status (Limited) Constitutional: Denies chills, Denies fatigue, Denies fever, Denies poor appetite, Denies weakness Eyes: denies blurred vision, denies pain Ears, nose, mouth and throat: Denies headache, Denies sore throat, Denies vertigo Cardiovascular: Denies chest pain, Denies edema, Denies leg edema, Denies lightheadedness, Denies shortness of breath, Denies syncope Respiratory: Denies cough, Denies dyspnea Gastrointestinal: Denies abdominal pain, Denies diarrhea, Denies loss of appetite, Denies nausea, Denies vomiting Genitourinary: Denies dysuria, Denies urinary retention Musculoskeletal: Reports gait dysfunction, Denies myalgias Integumentary: Denies pruritus, Denies rash, Denies wounds Neurological: Reports confusion, Denies change in mentation, Denies change in speech Psychiatric: Denies anxiety, Denies depression Endocrine: Denies fatigue, Denies weight change Past Medical History Past Medical History: Coronary Artery Disease (CAD), Cancer, Dementia, Hyperlipidemia, Hypertension, Memory Impairment, Pneumonia, Thyroid Disorder Additional Past Medical History / Comment(s): SOB w/exertion, hx of colon Ca X2, hx throat ca WITH RADIATION History of Any Multi-Drug Resistant Organisms: None Reported Past Surgical History: Appendectomy, Bowel Resection, Heart Catheterization Additional Past Surgical History / Comment(s): BOWEL SX X2, throat ca removal, hemorrhoids, colonoscopies, Radiation for throat cancer approx. 15 years ago. Past Anesthesia/Blood Transfusion Reactions: No Reported Reaction Past Psychological History: No Psychological Hx Reported Additional Psychological History / Comment(s): Dementia Smoking Status: Former smoker Past Alcohol Use History: None Reported Additional Past Alcohol Use History / Comment(s): QUIT SMOKING 2007, SMOKED SINCE AGE 13 (1954) SMOKED 1-2PPD for 50 years. Patient denies any marijuana, was a drug use or alcohol use. Patient lives at home with his . Past Drug Use History: None Reported - Past Family History Brother(s) Family Medical History: Cancer Additional Family Medical History / Comment(s): The patient has 2 brothers and one from bone cancer with metastatic disease, one from COPD. Father Additional Family Medical History / Comment(s): Father at age 82 from myocardial infarction. Mother Additional Family Medical History / Comment(s): Mother at age 70 from COPD. Sister(s) Additional Family Medical History / Comment(s): Patient has 1 sister that from COPD. Patient has one son that at 70 years old as he was hit by a truck. Patient had a total of 2 boys and 2 girls. Medications and Allergies Home Medications Medication Instructions Recorded Confirmed Type Atenolol 25 mg PO DAILY 05/31/19 08/05/19 History Atorvastatin [Lipitor] 20 mg PO DAILY 05/31/19 08/05/19 History Cholecalciferol [Vitamin D3] 400 unit PO DAILY@1200 05/31/19 08/05/19 History Cyanocobalamin (Vitamin B-12) 1,000 mcg PO DAILY 05/31/19 08/05/19 History [Vitamin B-12] Levothyroxine Sodium [Synthroid] 50 mcg PO DAILY 05/31/19 08/05/19 History Vitamin E 400 unit PO DAILY 05/31/19 08/05/19 History Aspirin 325 mg PO ONCE 06/01/19 08/05/19 History Allergies Allergy/AdvReac Type Severity Reaction Status Date / Time No Known Allergies Allergy Verified 08/05/19 12:57 Physical Exam Vitals: Vital Signs Temp Pulse Pulse Resp BP BP Pulse Ox 08/06/19 08:00 97.8 F 50 L 16 116/56 94 L 08/06/19 04:00 97.9 F 51 L 16 108/52 99 08/06/19 00:00 97.7 F 52 L 18 131/71 99 08/05/19 20:00 98.0 F 52 L 16 137/74 97 08/05/19 17:34 56 L 18 08/05/19 16:04 98.2 F 56 L 18 116/66 99 08/05/19 16:00 98.2 F 56 L 20 116/66 99 08/05/19 15:31 97.2 F L 72 18 133/80 97 08/05/19 13:59 98.3 F 59 L 18 140/80 96 08/05/19 10:14 99 08/05/19 10:10 62 Intake and Output 08/05/19 08/06/19 08/06/19 22:59 06:59 14:59 Intake Total 360 Balance 360 Intake: Oral 360 Other: Voiding Method Toilet Toilet # Voids 1 3 Weight 55.338 kg 50.6 kg Gen: This is an 79-year-old male. Patient is sitting up in recliner and appears to be comfortable and in no acute distress. Patient's is at bedside. HEENT: Head is atraumatic, normocephalic. Pupils equal, round. Sclerae is anicteric. NECK: Supple. No JVD. No lymphadenopathy. No thyromegaly. LUNGS: Clear to auscultation. No wheezes or rhonchi. No intercostal retractions. HEART: Regular rate and rhythm. No murmur. ABDOMEN: Soft. Bowel sounds are present. No masses. No tenderness. EXTREMITIES: No pedal edema. No calf tenderness. Dorsalis pedis palpable bilaterally. NEUROLOGICAL: Patient is awake, alert and oriented to person and place. Cranial nerves 2 through 12 are grossly intact. No focal neuro deficit. Results CBC & Chem 7: 08/05/19 10:19 08/05/19 10:19 Labs: Abnormal Lab Results - Last 24 Hours (Table) 08/05/19 Range/Units 10:19 D-Dimer 4.59 H (<0.60) mg/L FEU Thrombosis Risk Factor Assmnt - DVT/VTE Prophylaxis DVT/VTE Prophylaxis: Mechanical Prophylaxis ordered - Choose All That Apply Each Factor Represents 1 point: Medical pt on bed rest Other Risk Factors: Yes Each Risk Factor Represents 3 Points: Age 75 years or older Other congenital or acquired thrombophilia - If yes, enter type in comment: No Thrombosis Risk Factor Assessment Total Risk Factor Score: 4 Thrombosis Risk Factor Assessment Level: Moderate Risk Assessment and Plan Plan: 1. Chronic type B aortic dissection. Patient will be monitored overnight and anticipate discharge home tomorrow. Consult with cardiothoracic surgeon appreciated. 2. History of coronary artery disease. Continue aspirin, Lipitor, atenolol. 3. Hypertension. Continue atenolol 25 mg every 8 hours 4. Hyperlipidemia. Continue Lipitor. 5. COPD, stable without exacerbation. 6. History of throat cancer status post radiation. 7. History of colon cancer status post bowel resection. 8. Hypothyroidism. Continue levothyroxine 50 mg daily. 9. Remote history of tobacco use. 10. DVT prophylaxis. Patient placed as an observation status. Discharge plan: home on Tuesday. Impression and plan of care have been directed as dictated by the signing physician. Sofia Goodwin nurse practitioner acting as scribe for signing physician.
[2019-08-06] MEDS: ALPRAZolam 0.25 MG TAB PO PRN ×2 (16:17→21:31)
[2019-08-06 17:36] VITALS: RESP 18
[2019-08-07] MEDS: ALPRAZolam 0.25 MG TAB PO PRN (02:53)
[2019-08-07 07:09] VITALS: TEMP 97.8
[2019-08-07] MEDS: ATENOLOL 25 MG TAB PO SCH (09:06)
--- NOTE | 2019-08-07 10:31 | P.DS ---
Providers Date of admission: 08/05/19 14:57 Expected date of discharge: 08/07/19 Attending physician: Marek Navarro Consults: 08/05/19 14:44 Consult Physician Stat Consulting Provider: Kwabena Ambriz Consult Reason/Comments: Type B aortic dissection Do you want consulting provider notified?: Yes Primary care physician: Marek Navarro [facility] Course: This is an 79-year-old male patient of Drs. Navarro, Mily and Efra with history of dementia, dyslipidemia, myocardial infarction, dementia, hypothyroidism, colon cancer with recurrence, throat cancer, remote history of tobacco use. Patient had left the bathroom and lost all his strength and his whole body and grabbed his chest and upper abdomen was groaning in pain. Patient went down on the floor was crying due to the pain there was no nausea or vomiting. No diarrhea. Patient also had some shortness of breath following that. and hypertension presenting to emergency Department with chief complaint of shortness of breath. The states that the patient was getting ready for sabianist when he suddenly grabbed his chest and upper abdominal region and groan in pain. The states the patient went down on the floor and was even crying due to the pain. The states the patient did not feel clammy or vomiting. Patient's states that he has had a recent ultrasound of the carotids and stress test done as well as patient underwent heart catheterization. This was done June 01 of revealed intermittent disease involving the mid LCA. Dr. Kraus was also evaluated aortic aneurysm as an outpatient. At the time of this evaluation. Patient denies having any abdominal pain, no back pain, no chest pain, no shortness of breath. Patient was brought into [facility] emergency center for evaluation. Chest x-ray demonstrated COPD, atelectasis, possible infiltrates in the left base. CTA of the chest demonstrated no pulmonary embolus, but there was a evidence of a type B aortic dissection, along with COPD and some pulmonary nodules. Follow-up CT angio of the thoracic and abdominal aorta confirmed type B aortic dissection, likely chronic as there was no contrast filling the false lumen. 08/07: The patient was quite confused during the night in a Mr Everton was called. Patient has been hemodynamically stable. He has denied chest pain, shortness of breath. Family members are at bedside. Cardiothoracic surgery is cleared for discharge. Patient will be discharged home today in stable condition. Discharge Diagnoses: 1. Chronic type B aortic dissection. 2. History of coronary artery disease. 3. Hypertension. 4. Hyperlipidemia. 5. COPD, stable without exacerbation. 6. History of throat cancer status post radiation. 7. History of colon cancer status post bowel resection. 8. Hypothyroidism. 9. Remote history of tobacco use. Discharge plan: home Impression and plan of care have been directed as dictated by the signing physician. Sofia Goodwin nurse practitioner acting as scribe for signing physician. Patient Condition at Discharge: Good Plan - Discharge Summary Discharge Rx Participant: Yes New Discharge Prescriptions: New Atenolol [Tenormin] 25 mg PO Q8HR #90 tab Continue Cholecalciferol [Vitamin D3] 400 unit PO DAILY@1200 Levothyroxine Sodium [Synthroid] 50 mcg PO DAILY Atorvastatin [Lipitor] 20 mg PO DAILY Vitamin E 400 unit PO DAILY Cyanocobalamin (Vitamin B-12) [Vitamin B-12] 1,000 mcg PO DAILY Discontinued Atenolol 25 mg PO DAILY Aspirin 325 mg PO ONCE Discharge Medication List Atorvastatin [Lipitor] 20 mg PO DAILY 05/31/19 [History] Cholecalciferol [Vitamin D3] 400 unit PO DAILY@1200 05/31/19 [History] Cyanocobalamin (Vitamin B-12) [Vitamin B-12] 1,000 mcg PO DAILY 05/31/19 [History] Levothyroxine Sodium [Synthroid] 50 mcg PO DAILY 05/31/19 [History] Vitamin E 400 unit PO DAILY 05/31/19 [History] Atenolol [Tenormin] 25 mg PO Q8HR #90 tab 08/07/19 [Rx] Follow up Appointment(s)/Referral(s): Marek Navarro MD [Primary Care Provider] - 1 Week (Office to call with appointment time) Discharge Disposition: HOME SELF-CARE
[2019-08-07 10:54] VITALS: BP 136/82; PULSE 85
== END 2019-08-07 12:54 | disposition home or self-care (01) ==
LOC: EC 09:55 → INTOOBSV 14:57 → 3SCARD 14:57
PROVIDERS: ADMIT Internal Medicine; ATTEND Internal Medicine
DX: I71.01 Dissection of thoracic aorta (principal); I25.10 Atherosclerotic heart disease of native coronary artery without angina pectoris; I10 Essential (primary) hypertension; E78.5 Hyperlipidemia, unspecified; J43.9 Emphysema, unspecified; E03.9 Hypothyroidism, unspecified; F03.90 Unspecified dementia, unspecified severity, without behavioral disturbance, psychotic disturbance, mood disturbance, and anxiety; R79.1 Abnormal coagulation profile; I25.2 Old myocardial infarction; J98.11 Atelectasis; R91.8 Other nonspecific abnormal finding of lung field; R41.3 Other amnesia; I71.2 Thoracic aortic aneurysm, without rupture; I74.11 Embolism and thrombosis of thoracic aorta; N40.0 Benign prostatic hyperplasia without lower urinary tract symptoms; R93.41 Abnormal radiologic findings on diagnostic imaging of renal pelvis, ureter, or bladder; Z79.899 Other long term (current) drug therapy; Z79.890 Hormone replacement therapy; Z79.82 Long term (current) use of aspirin; Z85.89 Personal history of malignant neoplasm of other organs and systems; Z85.038 Personal history of other malignant neoplasm of large intestine; Z87.01 Personal history of pneumonia (recurrent); Z98.890 Other specified postprocedural states; Z90.49 Acquired absence of other specified parts of digestive tract; Z87.19 Personal history of other diseases of the digestive system; Z87.891 Personal history of nicotine dependence; Z92.3 Personal history of irradiation; Z80.8 Family history of malignant neoplasm of other organs or systems; Z80.9 Family history of malignant neoplasm, unspecified; Z82.5 Family history of asthma and other chronic lower respiratory diseases; Z82.49 Family history of ischemic heart disease and other diseases of the circulatory system
CPT/HCPCS: 96361 ×2; 96360; 99285; 36415; 94760; 93005; 85379; 80053; 83735; 84484; 85025; 85610; 85730; 71046; 71275; 74174; G0378 ×3; Q9967

== ENCOUNTER 2019-08-17 07:55 | Emergency (ER) | payer MEDICARE ==
[2019-08-17 08:00] VITALS: TEMP 98.9
[2019-08-17] MEDS ORDERED: SODIUM CHLORIDE 0.9% 500 ML 500 ML IV STA (08:21)
[2019-08-17 08:34] VITALS: RESP 16
[2019-08-17 08:34] LABS: Basophils # (A) 0.1 k/uL (0-0.2); Basophils % (A) 2 %; Eosinophils # (A) 0.5 k/uL (0-0.7); Eosinophils % (A) 7 %; HCT 50.7 % (39.0-53.0); Lymphocytes # (A) 1.8 k/uL (1.0-4.8); Lymphocytes % (A) 24 %; MCH 27.9 pg (25.0-35.0); MCHC 31.5 g/dL (31.0-37.0); MCV 88.3 fL (80.0-100.0); Monocytes # (A) 0.5 k/uL (0-1.0); Monocytes % (A) 7 %; Neutrophils # (A) 4.2 k/uL (1.3-7.7); Neutrophils % (A) 57 %; Platelet Count 251 k/uL (150-450); RBC 5.74 m/uL (4.30-5.90); WBC 7.4 k/uL (3.8-10.6)
--- NOTE | 2019-08-17 08:37 | ED ---
General Adult HPI - General Chief complaint: Abdominal Pain Stated complaint: rt groin pain Time Seen by Provider: 08/17/19 08:00 Source: patient, family, RN notes reviewed, old records reviewed Mode of arrival: ambulatory Limitations: no limitations - History of Present Illness Initial comments: This is an 79-year-old male who presents emergency Department with significant dementia. is with him. states that this morning the patient was co mplaining of mid abdominal pain and he was indicating the pain was going up and down in his abdomen. The pain lasted approximately an hour according to the and during that time the patient was extremely weak and is having difficulty even standing. The states that he has had this before and has a chronic dissection and she is wondering if it's progressing. Patient did not complain of any chest pain or did not look like he was having any difficulty breathing. states she's had no recent fever. states she's had no difficulty urinating there's been no diarrhea or vomiting that she knows of. He is unable to give any history. - Related Data Home Medications Medication Instructions Recorded Confirmed Atorvastatin [Lipitor] 20 mg PO DAILY 05/31/19 08/17/19 Cholecalciferol [Vitamin D3] 400 unit PO DAILY@1200 05/31/19 08/17/19 Cyanocobalamin (Vitamin B-12) 1,000 mcg PO DAILY 05/31/19 08/17/19 [Vitamin B-12] Levothyroxine Sodium [Synthroid] 50 mcg PO DAILY 05/31/19 08/17/19 Vitamin E 400 unit PO DAILY 05/31/19 08/17/19 Previous Rx's Medication Instructions Recorded Atenolol [Tenormin] 25 mg PO Q8HR #90 tab 08/07/19 Allergies Allergy/AdvReac Type Severity Reaction Status Date / Time No Known Allergies Allergy Verified 08/17/19 10:23 Review of Systems ROS Statement: Those systems with pertinent positive or pertinent negative responses have been documented in the HPI. ROS Other: All systems not noted in ROS Statement are negative. Past Medical History Past Medical History: Coronary Artery Disease (CAD), Cancer, Dementia, Hyperlipidemia, Hypertension, Memory Impairment, Pneumonia, Thyroid Disorder Additional Past Medical History / Comment(s): SOB w/exertion, hx of colon Ca X2, hx throat ca WITH RADIATION History of Any Multi-Drug Resistant Organisms: None Reported Past Surgical History: Appendectomy, Bowel Resection, Heart Catheterization Additional Past Surgical History / Comment(s): BOWEL SX X2, throat ca removal, hemorrhoids, colonoscopies, Radiation for throat cancer approx. 15 years ago. Past Anesthesia/Blood Transfusion Reactions: No Reported Reaction Past Psychological History: No Psychological Hx Reported Smoking Status: Former smoker Past Alcohol Use History: None Reported Past Drug Use History: None Reported - Past Family History Brother(s) Family Medical History: Cancer Additional Family Medical History / Comment(s): The patient has 2 brothers and one from bone cancer with metastatic disease, one from COPD. Father Additional Family Medical History / Comment(s): Father at age 82 from myocardial infarction. Mother Additional Family Medical History / Comment(s): Mother at age 70 from COPD. Sister(s) Additional Family Medical History / Comment(s): Patient has 1 sister that from COPD. Patient has one son that at 70 years old as he was hit by a truck. Patient had a total of 2 boys and 2 girls. General Exam - General Exam Comments Initial Comments: GENERAL: Patient is well-developed and well-nourished. Patient is nontoxic and well- hydrated and is in no acute distress. ENT: Neck is soft and supple. No significant lymphadenopathy is noted. Oropharynx is clear. Moist mucous membranes. Neck has full range of motion without eliciting any pain. EYES: The sclera were anicteric and conjunctiva were pink and moist. Extraocular movements were intact and pupils were equal round and reactive to light. Eyelids were unremarkable. PULMONARY: Unlabored respirations. Good breath sounds bilaterally. No audible rales rhonchi or wheezing was noted. CARDIOVASCULAR: There is a regular rate and rhythm without any murmurs gallops or rubs. ABDOMEN: Suprapubic abdominal pain SKIN: Skin is clear with no lesions or rashes and otherwise unremarkable. NEUROLOGIC: Patient is alert and oriented x3. Cranial nerves II through XII are grossly intact. Motor and sensory are also intact. Normal speech, volume and content. Symmetrical smile. MUSCULOSKELETAL: Normal extremities with adequate strength and full range of motion. No lower extremity swelling or edema. No calf tenderness. LYMPHATICS: No significant lymphadenopathy is noted PSYCHIATRIC: Normal psychiatric evaluation. Limitations: no limitations Course Vital Signs 08/17/19 08/17/1908/17/20 07:58 08:19 11:25 Temperature 98.9 F Pulse Rate 63 76 49 L Respiratory 22 16 16 Rate Blood Pressure 165/89 131/76 138/78 O2 Sat by Pulse 96 99 97 Oximetry Medical Decision Making - Medical Decision Making EKG shows sinus bradycardia 51 bpm WA interval is on a 34 QRS is 94 QT interval 448 QTC is 412. Patient's EKG shows no ST segment elevation or depression. Chest x-ray shows no acute abnormality. We'll begin and spoke with the and she was comfortable taking the patient home the patient has an appointment today at 2:00 with instruction librarian and agrees that she will follow-up with Dr. Navarro next week. I spoke with Dr. Navarro he is in agreement with this plan. Computed tomography scan of the abdomen and pelvis showed no acute abnormality and no change in the chronic dissection - Lab Data Result diagrams: 08/17/19 08:12 08/17/19 08:12 Lab Results 08/17/19 08/17/19 08/17/19 Range/Units 08:12 08:12 08:12 WBC 7.4 (3.8-10.6) k/uL RBC 5.74 (4.30-5.90) m/uL Hgb 16.0 (13.0-17.5) gm/dL Hct 50.7 (39.0-53.0) % MCV 88.3 (80.0-100.0) fL MCH 27.9 (25.0-35.0) pg MCHC 31.5 (31.0-37.0) g/dL RDW 13.0 (11.5-15.5) % Plt Count 251 (150-450) k/uL Neutrophils % 57 % Lymphocytes % 24 % Monocytes % 7 % Eosinophils % 7 % Basophils % 2 % Neutrophils # 4.2 (1.3-7.7) k/uL Lymphocytes # 1.8 (1.0-4.8) k/uL Monocytes # 0.5 (0-1.0) k/uL Eosinophils # 0.5 (0-0.7) k/uL Basophils # 0.1 (0-0.2) k/uL Sodium 143 (137-145) mmol/L Potassium 4.3 (3.5-5.1) mmol/L Chloride 107 (98-107) mmol/L Carbon Dioxide 27 (22-30) mmol/L Anion Gap 9 mmol/L BUN 21 H (9-20) mg/dL Creatinine 1.01 (0.66-1.25) mg/dL Est GFR (CKD-EPI)AfAm 81 (>60 ml/min/1.73 sqM) Est GFR (CKD-EPI)NonAf 70 (>60 ml/min/1.73 sqM) Glucose 94 (74-99) mg/dL Plasma Lactic Acid Charles 1.2 (0.7-2.0) mmol/L Calcium 9.5 (8.4-10.2) mg/dL Total Bilirubin 1.1 (0.2-1.3) mg/dL AST 22 (17-59) U/L ALT 10 (4-49) U/L Alkaline Phosphatase 95 (38-126) U/L Total Protein 7.3 (6.3-8.2) g/dL Albumin 4.3 (3.5-5.0) g/dL Amylase 75 (30-110) U/L Lipase 150 (23-300) U/L Urine Color Urine Appearance (Clear) Urine pH (5.0-8.0) Ur Specific Boley (1.001-1.035) Urine Protein (Negative) Urine Glucose (UA) (Negative) Urine Ketones (Negative) Urine Blood (Negative) Urine Nitrite (Negative) Urine Bilirubin (Negative) Urine Urobilinogen (<2.0) mg/dL Ur Leukocyte Esterase (Negative) 08/17/19 Range/Units 08:42 WBC (3.8-10.6) k/uL RBC (4.30-5.90) m/uL Hgb (13.0-17.5) gm/dL Hct (39.0-53.0) % MCV (80.0-100.0) fL MCH (25.0-35.0) pg MCHC (31.0-37.0) g/dL RDW (11.5-15.5) % Plt Count (150-450) k/uL Neutrophils % % Lymphocytes % % Monocytes % % Eosinophils % % Basophils % % Neutrophils # (1.3-7.7) k/uL Lymphocytes # (1.0-4.8) k/uL Monocytes # (0-1.0) k/uL Eosinophils # (0-0.7) k/uL Basophils # (0-0.2) k/uL Sodium (137-145) mmol/L Potassium (3.5-5.1) mmol/L Chloride (98-107) mmol/L Carbon Dioxide (22-30) mmol/L Anion Gap mmol/L BUN (9-20) mg/dL Creatinine (0.66-1.25) mg/dL Est GFR (CKD-EPI)AfAm (>60 ml/min/1.73 sqM) Est GFR (CKD-EPI)NonAf (>60 ml/min/1.73 sqM) Glucose (74-99) mg/dL Plasma Lactic Acid Charles (0.7-2.0) mmol/L Calcium (8.4-10.2) mg/dL Total Bilirubin (0.2-1.3) mg/dL AST (17-59) U/L ALT (4-49) U/L Alkaline Phosphatase (38-126) U/L Total Protein (6.3-8.2) g/dL Albumin (3.5-5.0) g/dL Amylase (30-110) U/L Lipase (23-300) U/L Urine Color Yellow Urine Appearance Clear (Clear) Urine pH 5.0 (5.0-8.0) Ur Specific Boley 1.022 (1.001-1.035) Urine Protein Negative (Negative) Urine Glucose (UA) Negative (Negative) Urine Ketones Negative (Negative) Urine Blood Negative (Negative) Urine Nitrite Negative (Negative) Urine Bilirubin Negative (Negative) Urine Urobilinogen <2.0 (<2.0) mg/dL Ur Leukocyte Esterase Negative (Negative) Disposition Clinical Impression: Abdominal pain Disposition: HOME SELF-CARE Condition: Good Instructions (If sedation given, give patient instructions): Abdominal Pain (ED) Is patient prescribed a controlled substance at d/c from ED?: No Referrals: Marek Navarro MD [Primary Care Provider] - 1-2 days Time of Disposition: 11:40
[2019-08-17 08:46] LABS: Albumin 4.3 g/dL (3.5-5.0); Calcium 9.5 mg/dL (8.4-10.2); Potassium 4.3 mmol/L (3.5-5.1); Total Bilirubin 1.1 mg/dL (0.2-1.3); Total Protein 7.3 g/dL (6.3-8.2)
[2019-08-17 08:53] LABS: Appearance,Urine Clear (Clear); Bilirubin,Urine Negative (Negative); Blood,Urine Negative (Negative); Color,Urine Yellow; Glucose,Urine (UA) Negative (Negative); Ketones,Urine Negative (Negative); Leukocyte Esterase,Urine Negative (Negative); Nitrite,Urine Negative (Negative); Protein,Urine Negative (Negative); Specific Gravity,Urine 1.022 (1.001-1.035); Urobilinogen,Urine <2.0 mg/dL (<2.0)
--- NOTE | 2019-08-17 10:09 | CT ---
EXAMINATION TYPE: CT angio thor/abd pel aorta DATE OF EXAM: 08/17/2019 9:32 AM COMPARISON: HISTORY: Right groin pain CT DLP: 1337 mGycm Automated exposure control for dose reduction was used. TECHNIQUE: Performed without and with IV Contrast, patient injected with 100 ml mL of Isovue 370. Images were obtained from above the aortic arch to below the pubic symphysis. Pre and postcontrast im aging is performed. Three-D reconstructed images through the aorta were performed on a separate compu ter by the technologist.. FINDINGS: CTA: There is a normal three-vessel arch. Ascending thoracic aorta at the level of the main pulmonary artery is 3.7 cm. The main pulmonary artery the bifurcation is 2.0 cm. Vascular calcification is wit hin the aorta. The thoracic aorta tapers normally through its visualized course. No thoracic or abdom inal aortic dissection is evident. There is some diminished flow within the aorta. There is a abdominal aortic fusiform prominence with an AP diameter of 3.4 cm. This terminates above the bifurcation. Common, internal, and external iliac vessels are patent. Common femoral arteries are patent. Profunda femoris and superficial femoral art eries proximally appear patent. CT CHEST: Portion of the thyroid visualized is normal. Some debris may be within the proximal thoracic esophagu s. No enlarged mediastinal or hilar lymphadenopathy is evident. Emphysematous changes are within the bilateral lung hairston. Some pleural thickening within the posterior right midlung depth of 0.3 cm. Se marisa [id number] image 42. Coronary artery calcification is noted. CT ABDOMEN: Liver and spleen and normal density without discrete masses or cysts. The gallbladder is unremarkable. The pancreas appears normal. Adrenal glands are normal. Kidneys are without masses or h ydronephrosis. A cortical renal cyst is on the right kidney. Inferior vena cava within the field-of-v iew is normal. There is fecal debris through the transverse colon and descending colon. Milder fecal debris is present within the remaining portions of the colon. No suspicious small bowel abnormality i s identified CT PELVIS: Urinary bladder is partially decompressed. Urinary bladder may have some mild wall thicken ing as well as could be artifact from decompressed state at the time of imaging. The prostate appears slightly prominent. No free fluid is within the pelvis. IMPRESSION: 1. FUSIFORM PROMINENCE MID ABDOMINAL AORTA WITH AN AP DIAMETER OF 3.4 CM. NO DISSECTION IS EVIDENT. 2. MILD WALL THICKENING OF THE URINARY BLADDER MAY BE DUE TO URINARY BLADDER DECOMPRESSION. 3. MINIMAL POSTERIOR RIGHT MID LUNG PLEURAL THICKENING. 4. NO SUSPICIOUS ABNORMALITY TO ACCOUNT FOR RIGHT GROIN PAIN..
[2019-08-17] MEDS ORDERED: NALOXONE 0.4 MG/ML 1 ML VIAL IV PRN (11:36)
[2019-08-17] MEDS ORDERED: SODIUM CHLORIDE 0.9% 1,000 ML IV SCH (11:45)
[2019-08-17 11:47] VITALS: BP 132/76; PULSE 57
== END 2019-08-17 11:44 | disposition home or self-care (01) ==
LOC: EC 07:55
DX: R10.31 Right lower quadrant pain (principal); R00.1 Bradycardia, unspecified; I10 Essential (primary) hypertension; I25.10 Atherosclerotic heart disease of native coronary artery without angina pectoris; F03.90 Unspecified dementia, unspecified severity, without behavioral disturbance, psychotic disturbance, mood disturbance, and anxiety; E78.5 Hyperlipidemia, unspecified; Z79.890 Hormone replacement therapy; Z79.899 Other long term (current) drug therapy; Z87.891 Personal history of nicotine dependence; Z85.038 Personal history of other malignant neoplasm of large intestine; Z85.21 Personal history of malignant neoplasm of larynx; Z92.3 Personal history of irradiation
CPT/HCPCS: 51798; 36415; 80053; 82150; 83605; 83690; 85025; 81003; 71275; 74174; 99285; 96360; Q9967

== ENCOUNTER 2020-01-07 10:20 | Observation (INO) | payer MEDICARE ==
[2020-01-07] MEDS ORDERED: NITROGLYCERIN OINT 1 INCH/GM PACKET TOPICAL STA (10:38)
[2020-01-07] MEDS ORDERED: ASPIRIN 81 MG PO STA (10:38)
--- NOTE | 2020-01-07 10:42 | ED ---
General Adult HPI - General Chief complaint: Chest Pain Stated complaint: Chest pain Time Seen by Provider: 01/07/20 10:28 Source: family, RN notes reviewed Mode of arrival: wheelchair Limitations: altered mental status - History of Present Illness Initial comments: Patient is an 79-year-old male with severe dementia presenting to the emergency department with chest discomfort. Patient has had some symptoms mild over the past couple of weeks. Symptoms more severe yesterday and again this morning. Patient appeared short of breath. Patient did admit to having chest discomfort to family earlier. Patient denies any discomfort at this time. History is obtained from family. Patient has limited verbal communication. Family also states the patient does have history of previous aortic tearing with healing. - Related Data Home Medications Medication Instructions Recorded Confirmed Atorvastatin [Lipitor] 20 mg PO DAILY 05/31/19 01/07/20 Cholecalciferol [Vitamin D3] 400 unit PO DAILY 05/31/19 01/07/20 Levothyroxine Sodium [Synthroid] 50 mcg PO DAILY 05/31/19 01/07/20 Aspirin EC [Ecotrin Low Dose] 81 mg PO DAILY 01/07/20 01/07/20 Atenolol [Tenormin] 25 mg PO HS 01/07/20 01/07/20 Melatonin 10 mg PO HS 01/07/20 01/07/20 Allergies Allergy/AdvReac Type Severity Reaction Status Date / Time No Known Allergies Allergy Verified 01/07/20 11:36 Review of Systems ROS Statement: Those systems with pertinent positive or pertinent negative responses have been documented in the HPI. ROS Other: All systems not noted in ROS Statement are negative. Constitutional: Denies: fever Eyes: Denies: eye pain ENT: Denies: ear pain Respiratory: Denies: cough Cardiovascular: Reports: as per HPI, chest pain Endocrine: Denies: fatigue Gastrointestinal: Denies: abdominal pain Genitourinary: Denies: dysuria Musculoskeletal: Denies: back pain Skin: Denies: rash Neurological: Denies: headache Past Medical History Past Medical History: Coronary Artery Disease (CAD), Cancer, Dementia, Hyperlipidemia, Hypertension, Memory Impairment, Pneumonia, Thyroid Disorder Additional Past Medical History / Comment(s): SOB w/exertion, hx of colon Ca X2, hx throat ca WITH RADIATION History of Any Multi-Drug Resistant Organisms: None Reported Past Surgical History: Appendectomy, Bowel Resection, Heart Catheterization Additional Past Surgical History / Comment(s): BOWEL SX X2, throat ca removal, hemorrhoids, colonoscopies, Radiation for throat cancer approx. 15 years ago. Past Anesthesia/Blood Transfusion Reactions: No Reported Reaction Past Psychological History: No Psychological Hx Reported Smoking Status: Former smoker Past Alcohol Use History: None Reported Past Drug Use History: None Reported - Past Family History Brother(s) Family Medical History: Cancer Additional Family Medical History / Comment(s): The patient has 2 brothers and one from bone cancer with metastatic disease, one from COPD. Father Additional Family Medical History / Comment(s): Father at age 82 from myocardial infarction. Mother Additional Family Medical History / Comment(s): Mother at age 70 from COPD. Sister(s) Additional Family Medical History / Comment(s): Patient has 1 sister that from COPD. Patient has one son that at 70 years old as he was hit by a truck. Patient had a total of 2 boys and 2 girls. General Exam Limitations: altered mental status General appearance: alert, in no apparent distress Head exam: Present: normocephalic Eye exam: Present: normal appearance Neck exam: Present: normal inspection Respiratory exam: Present: normal lung sounds bilaterally. Absent: chest wall tenderness Cardiovascular Exam: Present: regular rate, normal rhythm Expanded Peripheral pulses: 2+: Radial (R), Radial (L), Dorsalis Pedis (R), Dorsalis Pedis (L) GI/Abdominal exam: Present: soft. Absent: tenderness Extremities exam: Present: normal inspection. Absent: pedal edema, calf tenderness Neurological exam: Present: alert Psychiatric exam: Present: flat affect Skin exam: Present: normal color Course Vital Signs 01/07/20 01/07/20 01/07/20 10:23 11:00 11:30 Temperature 97.7 F Pulse Rate 53 L 45 L 45 L Respiratory 18 15 18 Rate Blood Pressure 141/79 126/85 115/89 O2 Sat by Pulse 97 99 100 Oximetry 01/07/20 01/07/20 01/07/20 12:30 13:00 13:30 Temperature Pulse Rate 45 L 44 L 49 L Respiratory 18 18 18 Rate Blood Pressure 120/64 129/75 128/81 O2 Sat by Pulse 100 100 99 Oximetry EKG Findings - EKG Comments: EKG Findings:: Sinus bradycardia 51. Sinus arrhythmia. AZ 140. QRS 86. QT 462. QTC 425. Normal axis. Normal QRS. No acute ST change. Medical Decision Making - Medical Decision Making Patient reevaluated and resting comfortably in bed. Patient and family updated on results and plan. Case was discussed in detail with Dr. Navarro, who will admit his patient. - Lab Data Result diagrams: 01/07/20 10:50 01/07/20 10:50 Lab Results 01/07/20 01/07/20 01/07/20 Range/Units 10:50 10:50 10:50 WBC 6.8 (3.8-10.6) k/uL RBC 5.76 (4.30-5.90) m/uL Hgb 16.9 (13.0-17.5) gm/dL Hct 51.5 (39.0-53.0) % MCV 89.4 (80.0-100.0) fL MCH 29.4 (25.0-35.0) pg MCHC 32.9 (31.0-37.0) g/dL RDW 13.6 (11.5-15.5) % Plt Count 223 (150-450) k/uL Neutrophils % 67 % Lymphocytes % 20 % Monocytes % 5 % Eosinophils % 5 % Basophils % 1 % Neutrophils # 4.6 (1.3-7.7) k/uL Lymphocytes # 1.3 (1.0-4.8) k/uL Monocytes # 0.4 (0-1.0) k/uL Eosinophils # 0.3 (0-0.7) k/uL Basophils # 0.1 (0-0.2) k/uL PT 10.5 (9.0-12.0) sec INR 1.0 (<1.2) APTT 21.8 L (22.0-30.0) sec Sodium 141 (137-145) mmol/L Potassium 4.4 (3.5-5.1) mmol/L Chloride 105 (98-107) mmol/L Carbon Dioxide 28 (22-30) mmol/L Anion Gap 8 mmol/L BUN 17 (9-20) mg/dL Creatinine 0.81 (0.66-1.25) mg/dL Est GFR (CKD-EPI)AfAm >90 (>60 ml/min/1.73 sqM) Est GFR (CKD-EPI)NonAf 84 (>60 ml/min/1.73 sqM) Glucose 87 (74-99) mg/dL Calcium 9.7 (8.4-10.2) mg/dL Magnesium 2.2 (1.6-2.3) mg/dL Total Bilirubin 1.3 (0.2-1.3) mg/dL AST 26 (17-59) U/L ALT 19 (4-49) U/L Alkaline Phosphatase 105 (38-126) U/L Troponin I (0.000-0.034) ng/mL Total Protein 7.0 (6.3-8.2) g/dL Albumin 4.3 (3.5-5.0) g/dL Amylase 65 (30-110) U/L Lipase 109 (23-300) U/L 01/07/20 Range/Units 10:50 WBC (3.8-10.6) k/uL RBC (4.30-5.90) m/uL Hgb (13.0-17.5) gm/dL Hct (39.0-53.0) % MCV (80.0-100.0) fL MCH (25.0-35.0) pg MCHC (31.0-37.0) g/dL RDW (11.5-15.5) % Plt Count (150-450) k/uL Neutrophils % % Lymphocytes % % Monocytes % % Eosinophils % % Basophils % % Neutrophils # (1.3-7.7) k/uL Lymphocytes # (1.0-4.8) k/uL Monocytes # (0-1.0) k/uL Eosinophils # (0-0.7) k/uL Basophils # (0-0.2) k/uL PT (9.0-12.0) sec INR (<1.2) APTT (22.0-30.0) sec Sodium (137-145) mmol/L Potassium (3.5-5.1) mmol/L Chloride (98-107) mmol/L Carbon Dioxide (22-30) mmol/L Anion Gap mmol/L BUN (9-20) mg/dL Creatinine (0.66-1.25) mg/dL Est GFR (CKD-EPI)AfAm (>60 ml/min/1.73 sqM) Est GFR (CKD-EPI)NonAf (>60 ml/min/1.73 sqM) Glucose (74-99) mg/dL Calcium (8.4-10.2) mg/dL Magnesium (1.6-2.3) mg/dL Total Bilirubin (0.2-1.3) mg/dL AST (17-59) U/L ALT (4-49) U/L Alkaline Phosphatase (38-126) U/L Troponin I <0.012 (0.000-0.034) ng/mL Total Protein (6.3-8.2) g/dL Albumin (3.5-5.0) g/dL Amylase (30-110) U/L Lipase (23-300) U/L - Radiology Data Radiology results: report reviewed (Computed tomography scan of the chest shows stable appearance of the aorta. Abdominal aortic aneurysm. Coronary artery disease. Stable pulmonary nodule.) Disposition Clinical Impression: Chest pain Disposition: ADMITTED IP TO THIS HOSP Is patient prescribed a controlled substance at d/c from ED?: No Referrals: Marek Navarro MD [Primary Care Provider] - 1-2 days Decision Time: 14:35
[2020-01-07 11:13] LABS: Basophils # (A) 0.1 k/uL (0-0.2); Basophils % (A) 1 %; Eosinophils # (A) 0.3 k/uL (0-0.7); Eosinophils % (A) 5 %; HCT 51.5 % (39.0-53.0); HGB 16.9 gm/dL (13.0-17.5); Lymphocytes # (A) 1.3 k/uL (1.0-4.8); Lymphocytes % (A) 20 %; MCH 29.4 pg (25.0-35.0); MCHC 32.9 g/dL (31.0-37.0); MCV 89.4 fL (80.0-100.0); Mean Platelet Volume 7.1; Monocytes # (A) 0.4 k/uL (0-1.0); Monocytes % (A) 5 %; Neutrophils # (A) 4.6 k/uL (1.3-7.7); Neutrophils % (A) 67 %; Platelet Count 223 k/uL (150-450); RBC 5.76 m/uL (4.30-5.90); RDW 13.6 % (11.5-15.5); WBC 6.8 k/uL (3.8-10.6)
[2020-01-07 11:30] LABS: ALT 19 U/L (4-49); AST 26 U/L (17-59); African American GFR (CKD) >90 (>60 ml/min/1.73 sqM); Albumin 4.3 g/dL (3.5-5.0); Alkaline Phosphatase 105 U/L (38-126); Amylase 65 U/L (30-110); Anion Gap 8 mmol/L; Blood Urea Nitrogen 17 mg/dL (9-20); Calcium 9.7 mg/dL (8.4-10.2); Carbon Dioxide 28 mmol/L (22-30); Chloride 105 mmol/L (98-107); Glucose 87 mg/dL (74-99); Magnesium 2.2 mg/dL (1.6-2.3); Non-African American GFR(CKD) 84 (>60 ml/min/1.73 sqM); Potassium 4.4 mmol/L (3.5-5.1); Sodium 141 mmol/L (137-145); Total Bilirubin 1.3 mg/dL (0.2-1.3)
[2020-01-07 11:37] LABS: Prothrombin Time 10.5 sec (9.0-12.0)
[2020-01-07 11:42] LABS: Partial Thromboplastin Time 21.8 sec (22.0-30.0)
--- NOTE | 2020-01-07 13:07 | CT ---
EXAMINATION TYPE: CT angio chest DATE OF EXAM: 01/07/2020 COMPARISON: CT 08/27/2019 HISTORY: Chest pain with history of dissection CT DLP: 562.9 mGycm Automated exposure control for dose reduction was used. CONTRAST: CTA scan of the thorax is performed without and with IV Contrast, patient injected with 100 ml mL of Isovue 370, pulmonary embolism protocol. MIP images are created and reviewed. 3D reconstructed imag es are created on an independent workstation and reviewed. FINDINGS: LUNGS: The lungs are remarkable for stable nodular density along the left lower lobe is somewhat disc shaped and measures only approximately 6 mm in size. Extensive emphysematous changes are again seen. There is no pleural effusion or pneumothorax seen. The tracheobronchial tree is remarkable for kira e dependent luminal irregularity which may represent retained secretions. Minimal areas of dependent atelectasis or pleural thickening noted in the right lung AORTA: No interval change is seen. Chronic descending aorta luminal narrowing with eccentric low-att enuation again noted, distal abdominal aortic aneurysm is again noted incidentally and partially. MEDIASTINUM: There is satisfactory enhancement of the pulmonary artery and its branches, there is no CT evidence for pulmonary embolism. There are no greater than 1 cm hilar or mediastinal lymph nodes. No pericardial effusion is seen. There are coronary artery calcifications present. OTHER: No additional significant abnormality is seen. IMPRESSION: STABLE APPEARANCE OF THE AORTA. STABLE PULMONARY NODULE. CORONARY ARTERY DISEASE. EMPHYSEMA. ABDOMINA L AORTIC ANEURYSM.
[2020-01-07] MEDS ORDERED: NITROGLYCERIN SL TABS 0.4 MG TAB SUBLINGUAL PRN (14:32)
[2020-01-07] MEDS ORDERED: risperiDONE 0.25 MG TAB PO STA (17:44)
[2020-01-07] MEDS: ISOSORBIDE MONONITRATE ER 30 MG TAB.ER.24H PO SCH (17:56)
[2020-01-07] MEDS ORDERED: NITROGLYCERIN OINT 1 INCH/GM PACKET TOPICAL SCH (18:00)
[2020-01-07] MEDS ORDERED: ATENOLOL 25 MG TAB PO SCH (21:00)
[2020-01-07] MEDS ORDERED: MELATONIN 5 MG TABLET PO SCH (21:00)
--- NOTE | 2020-01-08 00:12 | CONS ---
CONSULTATION Mr. Alcaraz is an 79-year-old male who presented through the emergency room and admitted for chest pain. The patient has dementia. He denies any symptoms of chest discomfort, but according to the nursing staff and the ER note that he was having pain at home. Because of that, he came in. He also has symptoms of dyspnea. Asking the patient, he denies any symptoms of chest pain. He denies any dizziness or palpitation. He denies any nausea. He denies any PND, orthopnea, or peripheral edema, although the accuracy of his story is poor. He has been seen by Dr. Kraus in the past and underwent cardiac catheterization in June 2019 and at that time was found to have chronic mild to moderate disease in the left circumflex that was noted few years back. He has a history of chronic dissection of type B dissection that has been stable. His coronary risk factors are positive for hypertension, hyperlipidemia. He said that he smokes on and off. He is nondiabetic. MEDICATIONS: His medications include aspirin, Tenormin 25 mg daily, Lipitor 20 mg daily, vitamin D, levothyroxine, and melatonin. REVIEW OF SYSTEMS: Review of systems is quite limited because of his dementia, but according to the patient he has no positive finding. PHYSICAL EXAMINATION: An 79-year-old male, alert, no acute distress. Blood pressure 142/79 with the heart rate in the 60s. HEAD: Normocephalic. EYES: Sclerae anicteric. NECK: Good upstroke, no bruit. No jugular venous distention. LUNGS: Clear to auscultation. HEART: Regular rate and rhythm. S1, S2. No S3 with a systolic ejection murmur. No diastolic murmur. No rub. ABDOMEN: Soft, nontender. Positive bowel sounds. No organomegaly. EXTREMITIES: No edema. LAB DATA: Lab data revealed troponin less than 0.012. BUN and creatinine 17 and 0.81. Potassium 4.4. Hemoglobin of 16.9. EKG revealed a sinus bradycardia rate of 51 with no acute changes. IMPRESSION: 1. Questionable history of chest discomfort, no evidence of myocardial infarction. Patient underwent cardiac catheterization in June of last year that revealed no evidence of significant obstructive disease. 2. History of type 2 chronic aortic dissection, stable. 3. Dementia. 4. Hypertension. 5. Hyperlipidemia. RECOMMENDATION: At this time, I do not see any evidence of acute coronary syndrome. I would not recommend aggressive cardiac workup considering his recent cardiac catheterization overall status. I will add to his regimen oral nitrate for the possible vasospastic disease. Will check the rest of his enzymes. If they remain negative then would expect he may be able to be discharged home soon. Thank you for this consult. MMMARICRUZ / IJN: [id number] /
[2020-01-08 02:52] VITALS: RESP 18
[2020-01-08 05:47] VITALS: TEMP 97.2
[2020-01-08] MEDS ORDERED: LEVOTHYROXINE 50 MCG TAB PO SCH (06:30)
--- NOTE | 2020-01-08 08:20 | P.HPIM ---
History of Present Illness H&P Date: 01/08/20 Chief Complaint: Chest pain This is a history of physical and discharge summary. This is an 79-year-old male patient of mine with history of dementia, dyslipidemia, myocardial infarction, dementia, hypothyroidism, colon cancer with recurrence, throat cancer, remote history of tobacco use, was brought into the emergency department at [facility] yesterday because of chest pain while he was at home, patient was brought by his into the ER his initial EKG did not show any acute ischemic changes, his initial troponin was negative, however because of the presentation his prior history patient was admitted to the hospital for evaluation by cardiology, patient did have a left heart catheterization that was done by Dr. Wallis about 2 months ago and that did not show any evidence of coronary artery disease, he does have a history of abdominal aortic aneurysm as well that is being monitored by cardiology as well, patient was seen today he is sitting up and agitated that he is not having any chest pain or any shortness of breath is moving around very well, he was seen already in consultation by cardiology and that the patient can be discharged home he was started on a small dose of nitroglycerin and beta brittaney for pain control, and the patient tolerated the treatment very well he can be discharged home with follow-up with us as an outpatient Review of Systems Constitutional: Reports weight loss, Denies anorexia, Denies fatigue, Denies lethargy, Denies weakness Eyes: denies blurred vision, denies bulging eye, denies decreased vision Ears: bilateral: decreased hearing Ears, nose, mouth and throat: Denies dysphagia, Denies neck lump, Denies sore throat Cardiovascular: Reports chest pain, Reports decreased exercise tolerance, Reports shortness of breath, Denies lightheadedness, Denies rapid heart beat, Denies syncope Respiratory: Denies congestion, Denies cough, Denies cough with sputum, Denies sleep apnea, Denies snoring, Denies wheezing Gastrointestinal: Reports loss of appetite, Denies abdominal pain, Denies bloating, Denies BRBPR, Denies excessive gas, Denies heartburn, Denies melena, Denies nausea, Denies vomiting Genitourinary: Reports nocturia, Denies dysuria Musculoskeletal: Denies myalgias Musculoskeletal: absent: ankle pain, ankle stiffness, ankle swelling, elbow pain, elbow stiffness, elbow swelling, foot pain, foot stiffness, foot swelling, hand pain, hand stiffness, hand swelling, hip pain, hip stiffness, hip swelling, knee pain, knee stiffness, knee swelling, shoulder pain, shoulder stiffness, shoulder swelling, wrist pain, wrist stiffness, wrist swelling Integumentary: Denies pruritus, Denies rash Neurological: Reports confusion, Reports memory loss, Denies numbness, Denies weakness Psychiatric: Denies anxiety, Denies depression Endocrine: Denies fatigue, Denies weight change Past Medical History Past Medical History: Coronary Artery Disease (CAD), Cancer, Chest Pain / Angina, COPD, Dementia, Hyperlipidemia, Hypertension, Memory Impairment, Pneumonia, Thyroid Disorder Additional Past Medical History / Comment(s): Chronic type B aortic dissection, colon cancer twice with surgery, laryngeal cancer with surgery/radiation, stable pulmonary nodules, SOB with minimal exertion, hypothyroid. History of Any Multi-Drug Resistant Organisms: None Reported Past Surgical History: Appendectomy, Bowel Resection, Heart Catheterization Additional Past Surgical History / Comment(s): Bowel resection x2, surgery for laryngeal cancer, colonoscopies/polypectomy, hemorrhoidectomy. Past Anesthesia/Blood Transfusion Reactions: No Reported Reaction Smoking Status: Former smoker - Past Family History Brother(s) Family Medical History: Cancer Additional Family Medical History / Comment(s): The patient has 2 brothers and one from bone cancer with metastatic disease, one from COPD. Father Additional Family Medical History / Comment(s): Father at age 82 from myocardial infarction. Mother Additional Family Medical History / Comment(s): Mother at age 70 from COPD. Sister(s) Additional Family Medical History / Comment(s): Patient has 1 sister that from COPD. Patient has one son that at 70 years old as he was hit by a truck. Patient had a total of 2 boys and 2 girls. Medications and Allergies Home Medications Medication Instructions Recorded Confirmed Type Atorvastatin [Lipitor] 20 mg PO DAILY 05/31/19 01/07/20 History Cholecalciferol [Vitamin D3] 400 unit PO DAILY 05/31/19 01/07/20 History Levothyroxine Sodium [Synthroid] 50 mcg PO DAILY 05/31/19 01/07/20 History Aspirin EC [Ecotrin Low Dose] 81 mg PO DAILY 01/07/20 01/07/20 History Atenolol [Tenormin] 25 mg PO HS 01/07/20 01/07/20 History Melatonin 10 mg PO HS 01/07/20 01/07/20 History Allergies Allergy/AdvReac Type Severity Reaction Status Date / Time No Known Allergies Allergy Verified 01/07/20 11:36 Physical Exam Vitals: Vital Signs Temp Pulse Pulse Resp BP BP Pulse Ox 01/08/20 04:00 97.2 F L 54 L 18 101/59 99 01/08/20 00:00 96.9 F L 53 L 18 108/60 99 01/07/20 20:00 97.9 F 74 17 121/75 94 L 01/07/20 16:00 98.2 F 79 18 185/81 99 01/07/20 15:30 58 L 17 142/79 99 01/07/20 15:00 64 18 128/90 93 L 01/07/20 14:30 51 L 17 134/78 99 01/07/20 13:30 49 L 18 128/81 99 01/07/20 13:00 44 L 18 129/75 100 01/07/20 12:30 45 L 18 120/64 100 01/07/20 11:30 45 L 18 115/89 100 01/07/20 11:00 45 L 15 126/85 99 01/07/20 10:23 97.7 F 53 L 18 141/79 97 Intake and Output 01/07/20 01/08/20 01/08/20 22:59 06:59 14:59 Other: Voiding Method Toilet Toilet # Voids 1 1 Weight 53.07 kg 47.7 kg HEENT: Head is atraumatic, normocephalic, pupils were equal round reactive to li ght and accommodation, extraocular muscle movement were intact. Neck: Supple, no JVD, decreased carotid upstroke bilaterally. Chest: Decreased breath sound at bases, few rhonchi, no expiratory wheezes, no chest wall tenderness, no intercostal retractions. Heart: First heart sound is depressed, second heart sound is normal, there is systolic ejection murmur 2/6 located in the left sternal border. Abdomen: Soft, nontender, nondistended, positive bowel sounds. Extremities: No edema, no calf tenderness, dorsalis pedis +1 bilaterally. Neurologic examination: Patient is awake alert and oriented 1, baseline dementia follow simple commands only, patient moves all his extremities, muscle power 4 out of 5 in upper and lower extremities bilaterally, there is no focal weakness or lateralization there is no pronator drift. Results CBC & Chem 7: 01/07/20 10:50 01/07/20 10:50 Labs: Abnormal Lab Results - Last 24 Hours (Table) 01/07/20 01/08/20 Range/Units 10:50 02:38 APTT 21.8 L (22.0-30.0) sec Troponin I 0.036 H* (0.000-0.034) ng/mL Thrombosis Risk Factor Assmnt - DVT/VTE Prophylaxis DVT/VTE Prophylaxis: Pharmacologic Prophylaxis ordered, Mechanical Prophylaxis ordered - Choose All That Apply Any of the Below Risk Factors Present?: Yes Each Factor Represents 1 point: Abnormal pulmonary function (COPD) Other Risk Factors: Yes Each Risk Factor Represents 3 Points: Age 75 years or older Other congenital or acquired thrombophilia - If yes, enter type in comment: No Thrombosis Risk Factor Assessment Total Risk Factor Score: 4 Thrombosis Risk Factor Assessment Level: Moderate Risk Assessment and Plan Assessment: Assessment and plan: 1. Chest pain of unclear etiology could be related to spasm of the coronary artery. Continue patient on aspirin 81 mg once every day, atenolol 25 mg orally once every day, Lipitor 20 mg orally once every day, added Imdur 30 mg orally once every day, patient was seen in consultation by cardiology, echocardiogram was done last time, EKG did not show any evidence of acute changes, troponin was slightly elevated, discussed with cardiology that the patient can be discharged home with follow-up with us as an outpatient. 2. Chronic type B aortic dissection. CT angiography did not show any evidence of acute of normalities, it did show an abdominal aortic aneurysm which is being watched by cardiology. 3. History of coronary artery disease. Continue aspirin, Lipitor, atenolol. 4. Hypertension and hypertensive cardiovascular disease. Continue atenolol 25 mg orally once every day. 4. Hyperlipidemia. Continue Lipitor 20 mg orally once every day. 5. COPD, stable without exacerbation. Stable. 6. History of throat cancer status post radiation. Remission. 7. History of colon cancer status post bowel resection. Remission. 8. Hypothyroidism. Continue levothyroxine 50 mg daily. 9. Remote history of tobacco use. Stable. 10. DVT prophylaxis. Heparin 5000 units subcutaneously every 8 hours. 11. Admit to inpatient. 12. Patient can be discharged home with follow-up with cardiology as well as myself as an outpatient one week.
[2020-01-08] MEDS ORDERED: ASPIRIN 81 MG PO SCH (09:00)
[2020-01-08] MEDS ORDERED: ATORVASTATIN 20 MG TAB PO SCH (09:00)
[2020-01-08] MEDS ORDERED: ASPIRIN 325 MG TAB PO SCH (09:00)
--- NOTE | 2020-01-08 09:14 | PN ---
PROGRESS NOTE Mr. Alcaraz is an 79-year-old male with history of [id number] stable disease in the left circumflex, history of hypertension, hyperlipidemia, history of dementia, who presented to the emergency room with questionable chest discomfort. He has remained confused, but denying any chest pain. His breathing is stable. He denies any dizziness or palpitation. He denies any nausea or vomiting. Hemodynamically, he is stable. He has a known history of chronic type B aortic dissection that has been stable. He continues to be at this time on aspirin once a day, atenolol 25 mg daily, Lipitor 10 mg daily, isosorbide mononitrate 30 mg daily, risperidone. PHYSICAL EXAMINATION: Blood pressure 101/60 with a heart rate in the 50s. LUNGS: Clear. HEART: Regular rate and rhythm, S1, S2. No S3. No rub with a systolic murmur, no diastolic murmur. ABDOMEN: Soft, nontender. EXTREMITIES: No edema. LAB DATA: Revealed troponin less than 0.012, then 0.036. IMPRESSION: 1. Chest discomfort with mild troponin elevation of unclear etiology. Patient could have had a non ST-segment elevation myocardial infarction. In view of his advanced dementia, I would recommend maximum medical therapy. I would not recommend any aggressive cardiac workup. 2. History of dementia. 3. Hypertension. 4. Hyperlipidemia. 5. History of type 2 chronic aortic dissection, stable. RECOMMENDATION: From the cardiac standpoint, he is stable. Will continue present therapy and he will follow up with Dr. Kraus as an outpatient. MMODL / IJN: [id number] /
[2020-01-08] MEDS: ISOSORBIDE MONONITRATE ER 30 MG TAB.ER.24H PO SCH (10:11)
[2020-01-08 11:30] VITALS: BP 112/65; PULSE 55
== END 2020-01-08 11:39 | disposition home or self-care (01) ==
LOC: EC 10:20 → 3SCARD 14:32
PROVIDERS: ADMIT Internal Medicine; ATTEND Internal Medicine
DX: R07.89 Other chest pain (principal); R79.89 Other specified abnormal findings of blood chemistry; J43.9 Emphysema, unspecified; F03.90 Unspecified dementia, unspecified severity, without behavioral disturbance, psychotic disturbance, mood disturbance, and anxiety; E78.5 Hyperlipidemia, unspecified; E03.9 Hypothyroidism, unspecified; I71.4 Abdominal aortic aneurysm, without rupture; I71.00 Dissection of unspecified site of aorta; R45.1 Restlessness and agitation; I25.10 Atherosclerotic heart disease of native coronary artery without angina pectoris; I11.9 Hypertensive heart disease without heart failure; K64.9 Unspecified hemorrhoids; R91.1 Solitary pulmonary nodule; R00.1 Bradycardia, unspecified; Z03.818 Encounter for observation for suspected exposure to other biological agents ruled out; Z79.899 Other long term (current) drug therapy; Z79.82 Long term (current) use of aspirin; Z79.890 Hormone replacement therapy; Z87.891 Personal history of nicotine dependence; Z85.819 Personal history of malignant neoplasm of unspecified site of lip, oral cavity, and pharynx; Z85.038 Personal history of other malignant neoplasm of large intestine; I25.2 Old myocardial infarction; Z87.01 Personal history of pneumonia (recurrent); Z92.3 Personal history of irradiation; Z90.49 Acquired absence of other specified parts of digestive tract; Z86.010 Personal history of colon polyps; Z82.5 Family history of asthma and other chronic lower respiratory diseases; Z82.49 Family history of ischemic heart disease and other diseases of the circulatory system; Z80.8 Family history of malignant neoplasm of other organs or systems
CPT/HCPCS: 99285; 36415; 93005; 80053; 82150; 83690; 83735; 84484 ×2; 85025; 85610; 85730; 71275; G0378 ×2; U0003; Q9967

== ENCOUNTER 2020-03-15 13:12 | Emergency (ER) | payer MEDICARE ==
[2020-03-15 13:20] VITALS: RESP 18; TEMP 98.3
--- NOTE | 2020-03-15 13:34 | ED ---
Chest Pain HPI - General Chief Complaint: Chest Pain Stated Complaint: Chest Pain Time Seen by Provider: 03/15/20 13:32 Source: patient, family, RN notes reviewed, old records reviewed Mode of arrival: wheelchair Limitations: altered mental status - History of Present Illness Initial Comments: This is an 79-year-old male to the ER for evaluation patient to the ER for evaluation of chest pain. Patient has dementia unable to give accurate history MD Complaint: chest pain -: hour(s) Onset: during rest Pain Location: substernal Pain Radiation: none Severity: moderate Severity scale (1-10): 5 Quality: tightness, heaviness Consistency: constant Improves With: nothing Worsens With: nothing Anginal Symptoms: dyspnea Other Symptoms: palpitations Treatments Prior to Arrival: none - Related Data Home Medications Medication Instructions Recorded Confirmed Atorvastatin [Lipitor] 20 mg PO DAILY 05/31/19 01/07/20 Cholecalciferol [Vitamin D3] 400 unit PO DAILY 05/31/19 01/07/20 Levothyroxine Sodium [Synthroid] 50 mcg PO DAILY 05/31/19 01/07/20 Aspirin EC [Ecotrin Low Dose] 81 mg PO DAILY 01/07/20 01/07/20 Melatonin 10 mg PO HS 01/07/20 01/07/20 atenoloL [Tenormin] 25 mg PO HS 01/07/20 01/07/20 Previous Rx's Medication Instructions Recorded Isosorbide Mononitrate ER [Imdur] 30 mg PO DAILY #30 tab.er.24h 01/08/20 Nitroglycerin Sl Tabs [Nitrostat] 0.4 mg SUBLINGUAL Q5M PRN #25 tab 01/08/20 Allergies Allergy/AdvReac Type Severity Reaction Status Date / Time No Known Allergies Allergy Verified 03/15/20 13:20 Review of Systems ROS Statement: Those systems with pertinent positive or pertinent negative responses have been documented in the HPI. ROS Other: All systems not noted in ROS Statement are negative. EKG Findings - EKG Comments: EKG Findings:: EKG shows sinus rhythm 60. 160 QRS 90 QTC 4:30 Past Medical History Past Medical History: Coronary Artery Disease (CAD), Cancer, Chest Pain / Angina, COPD, Dementia, Hyperlipidemia, Hypertension, Memory Impairment, Pneumonia, Thyroid Disorder Additional Past Medical History / Comment(s): Chronic type B aortic dissection, colon cancer twice with surgery, laryngeal cancer with surgery/radiation, stable pulmonary nodules, SOB with minimal exertion, hypothyroid. History of Any Multi-Drug Resistant Organisms: None Reported Past Surgical History: Appendectomy, Bowel Resection, Heart Catheterization Additional Past Surgical History / Comment(s): Bowel resection x2, surgery for laryngeal cancer, colonoscopies/polypectomy, hemorrhoidectomy. Past Anesthesia/Blood Transfusion Reactions: No Reported Reaction Past Psychological History: No Psychological Hx Reported Smoking Status: Former smoker Past Alcohol Use History: None Reported Past Drug Use History: None Reported - Past Family History Brother(s) Family Medical History: Cancer Additional Family Medical History / Comment(s): The patient has 2 brothers and one from bone cancer with metastatic disease, one from COPD. Father Additional Family Medical History / Comment(s): Father at age 82 from myocardial infarction. Mother Additional Family Medical History / Comment(s): Mother at age 70 from COPD. Sister(s) Additional Family Medical History / Comment(s): Patient has 1 sister that from COPD. Patient has one son that at 70 years old as he was hit by a truck. Patient had a total of 2 boys and 2 girls. General Exam Limitations: altered mental status General appearance: alert, in no apparent distress Head exam: Present: atraumatic, normocephalic, normal inspection Eye exam: Present: normal appearance, PERRL, EOMI. Absent: scleral icterus, conjunctival injection, periorbital swelling ENT exam: Present: normal exam, mucous membranes moist Neck exam: Present: normal inspection. Absent: tenderness, meningismus, lymphadenopathy Respiratory exam: Present: normal lung sounds bilaterally. Absent: respiratory distress, wheezes, rales, rhonchi, stridor Cardiovascular Exam: Present: regular rate, normal rhythm, normal heart sounds. Absent: systolic murmur, diastolic murmur, rubs, gallop, clicks GI/Abdominal exam: Present: soft, normal bowel sounds. Absent: distended, tenderness, guarding, rebound, rigid Extremities exam: Present: normal inspection, full ROM, normal capillary refill. Absent: tenderness, pedal edema, joint swelling, calf tenderness Back exam: Present: normal inspection Neurological exam: Present: alert, oriented X3, CN II-XII intact Psychiatric exam: Present: normal affect, normal mood Skin exam: Present: warm, dry, intact, normal color. Absent: rash Course Vital Signs 03/15/20 03/15/20 03/15/20 13:17 14:22 15:01 Temperature 98.3 F Pulse Rate 64 56 L Pulse Rate [ 58 L [employer] ] Respiratory 18 Rate Blood Pressure 112/67 O2 Sat by Pulse 96 Oximetry 03/15/20 08 15:12 15:40 Temperature Pulse Rate 51 L 52 L Pulse Rate [ [employer] ] Respiratory 18 Rate Blood Pressure 114/71 O2 Sat by Pulse 98 Oximetry - Reevaluation(s) Reevaluation #1: 03/15/20 15:52 Medical record is reviewed Reevaluation #2: 03/15/20 15:53 Patient has no recurrent chest pain no shortness of breath no significant distress Reevaluation #3: 03/15/20 15:53 Patient does have history of type B dissection which is nonoperable Chest Pain MDM - MDM 79-year-old male DF with atypical left-sided chest pain after coughing attack. Symptoms resolved here in the ER blood pressure normal heart rate normal patient can be discharged home Disposition Clinical Impression: Chest pain Disposition: HOME SELF-CARE Condition: Good Instructions (If sedation given, give patient instructions): Chest Pain (ED) Is patient prescribed a controlled substance at d/c from ED?: No Referrals: Marek Navarro MD [Primary Care Provider] - 1-2 days
[2020-03-15] MEDS ORDERED: KETOROLAC 15 MG/ML 1 ML VIAL IVP STA (14:20)
[2020-03-15] MEDS ORDERED: IPRATROPIUM-ALBUTEROL 3 ML NEB INHALATION STA (14:20)
[2020-03-15] MEDS ORDERED: methylPREDNISolone SOD SUCCI 125 MG/2 ML VIAL IV STA (14:20)
[2020-03-15 14:28] LABS: Basophils # (A) 0.1 k/uL (0-0.2); Basophils % (A) 1 %; Eosinophils # (A) 0.4 k/uL (0-0.7); Eosinophils % (A) 5 %; HCT 46.3 % (39.0-53.0); Lymphocytes # (A) 1.5 k/uL (1.0-4.8); Lymphocytes % (A) 21 %; MCH 29.1 pg (25.0-35.0); MCHC 32.3 g/dL (31.0-37.0); MCV 89.9 fL (80.0-100.0); Mean Platelet Volume 6.9; Monocytes # (A) 0.5 k/uL (0-1.0); Monocytes % (A) 6 %; Neutrophils # (A) 4.6 k/uL (1.3-7.7); Neutrophils % (A) 64 %; Platelet Count 215 k/uL (150-450); RBC 5.16 m/uL (4.30-5.90); RDW 13.4 % (11.5-15.5); WBC 7.3 k/uL (3.8-10.6)
[2020-03-15 14:37] LABS: ALT 14 U/L (4-49); AST 27 U/L (17-59); African American GFR (CKD) >90 (>60 ml/min/1.73 sqM); Albumin 4.2 g/dL (3.5-5.0); Alkaline Phosphatase 88 U/L (38-126); Anion Gap 8 mmol/L; Blood Urea Nitrogen 17 mg/dL (9-20); Calcium 9.7 mg/dL (8.4-10.2); Carbon Dioxide 27 mmol/L (22-30); Chloride 105 mmol/L (98-107); Glucose 95 mg/dL (74-99); Magnesium 2.1 mg/dL (1.6-2.3); Non-African American GFR(CKD) 85 (>60 ml/min/1.73 sqM); Potassium 4.3 mmol/L (3.5-5.1); Sodium 140 mmol/L (137-145); Total Bilirubin 0.9 mg/dL (0.2-1.3); Total Protein 6.6 g/dL (6.3-8.2)
[2020-03-15 14:38] LABS: Partial Thromboplastin Time 23.9 sec (22.0-30.0); Prothrombin Time 10.6 sec (9.0-12.0)
--- NOTE | 2020-03-15 14:45 | XR ---
EXAMINATION TYPE: XR chest 2V DATE OF EXAM: 03/15/2020 COMPARISON: 08/05/2019 HISTORY: Weakness. Chest pain TECHNIQUE: 2 views FINDINGS: There is no heart failure nor confluent pneumonic infiltrate. Costophrenic angles are clear. Thoracic aorta is atheromatous. IMPRESSION: No active cardiopulmonary disease. Atheromatous aorta. There is clearing of the small infiltrate left lower lobe compared to old exam.
[2020-03-15 15:40] VITALS: BP 114/71; PULSE 52
== END 2020-03-15 16:02 | disposition home or self-care (01) ==
LOC: EC 13:12
DX: R07.9 Chest pain, unspecified (principal); I25.119 Atherosclerotic heart disease of native coronary artery with unspecified angina pectoris; F03.90 Unspecified dementia, unspecified severity, without behavioral disturbance, psychotic disturbance, mood disturbance, and anxiety; E78.5 Hyperlipidemia, unspecified; I10 Essential (primary) hypertension; E03.9 Hypothyroidism, unspecified; Z79.82 Long term (current) use of aspirin; Z79.890 Hormone replacement therapy; Z79.899 Other long term (current) drug therapy; Z85.21 Personal history of malignant neoplasm of larynx; Z85.038 Personal history of other malignant neoplasm of large intestine; Z87.891 Personal history of nicotine dependence; Z82.49 Family history of ischemic heart disease and other diseases of the circulatory system; Z95.5 Presence of coronary angioplasty implant and graft
CPT/HCPCS: 36415; 94640; 93005; 83880; 80053; 83690; 83735; 84484; 85025; 85610; 85730; 71046; 99285; 96374; 96375; J2930; J1885

== ENCOUNTER 2020-03-18 09:02 | Inpatient (IN) | payer MEDICARE ==
[2020-03-18] MEDS ORDERED: SODIUM CHLORIDE 0.9% 500 ML 500 ML IV STA (09:13)
--- NOTE | 2020-03-18 09:22 | ED ---
General Adult HPI - General Chief complaint: Neuro Symptoms/Deficit Stated complaint: Poss stroke Time Seen by Provider: 03/18/20 09:13 Source: patient, family Mode of arrival: wheelchair Limitations: altered mental status - History of Present Illness Initial comments: Dictation was produced using [employer] dictation software. please excuse any gramma tical, word or spelling errors. This patient was cared for during a federal and state declared state of emergency secondary to Covid 19 Chief Complaint: 79-year-old male past medical history of dementia, coronary artery disease, dyslipidemia presents with altered mental status. History of Present Illness: 79-year-old male who presents today with family member. The patient was last seen normal last night. This morning he woke up groaning. Family member at bedside reports that she went to his room noted that he was acting very strangely. He has never had an episode like this in the past. He has no history of stroke. He was nonambulatory and more confused than usual. He was nonambulatory. He was not able to stand. reports that he was not flaccid. States that his eyebrow ridge was very tense. He was not showing any signs of weakness to his arms or legs. States that he has mild facial asymmetry to the right. At baseline patient's typically ambulatory and able to care for himself. His degree of dementia as described by family member at bedside is mild confusion with identifying his family members. He otherwise is very interactive. The ROS documented in this emergency department record has been reviewed and confirmed by me. Those systems with pertinent positive or negative responses have been documented in the HPI. All other systems are other negative and/or noncontributory. PHYSICAL EXAM: General Impression: Alert and oriented x1, not in acute distress, aggressive, not cooperative HEENT: Normocephalic atraumatic, extra-ocular movements intact, pupils equal and reactive to light bilaterally, mucous membranes moist. Cardiovascular: Heart regular rate and rhythm Chest: Able to complete full sentences, no retractions, no tachypnea Abdomen: abdomen soft, non-tender, non-distended, no organomegaly Musculoskeletal: Pulses present and equal in all extremities, no peripheral edema Motor: no focal deficits noted Neurological: Cranial nerves II-12 intact, mildly aphasic however he is uncooperative. Skin: Intact with no visualized rashes Psych: Normal affect and mood ED course: -year-old male with past medical history of dementia presents with altered mental status. Vital signs upon arrival are within acceptable limits. Code stroke activated. It is very difficult to get an accurate score given that patient is uncooperative. Does not show any obvious signs of focal neurologic deficits however he is aphasic.[facility] Bond. Reports that patient is not a TPA or thrombectomy candidate. CT and CT angiogram of the head and neck shows no acute processes. Laboratory evaluation obtained. CBC, coag panel, metabolic panel is unremarkable. Patient given aspirin. Patient will be admitted with neurology consultation. EKG interpretation: Ventricular rate 59, sinus bradycardia, [place] interval 132, QRS 94, QTC 427. No [place] prolongation, no QTC prolongation, no ST or T-wave changes noted. EKG compared to 03/15/2020 showing no changes. Overall, this EKG is unremarkable - Related Data Home Medications Medication Instructions Recorded Confirmed Atorvastatin [Lipitor] 20 mg PO DAILY@119905/31/19 03/18/20 Levothyroxine Sodium [Synthroid] 50 mcg PO DAILY@119905/31/19 03/18/20 Aspirin EC [Ecotrin Low Dose] 81 mg PO DAILY@119901/07/20 03/18/20 atenoloL [Tenormin] 25 mg PO HS@199901/07/20 03/18/20 Cholecalciferol [Vitamin D3 (25 1,000 unit PO DAILY@119903/18/20 03/18/20 Mcg = 1000 Iu)] Isosorbide Mononitrate ER [Imdur] 30 mg PO DAILY@119903/18/20 03/18/20 Melatonin 1 mg PO HS@199903/18/20 03/18/20 Mirtazapine 7.5 mg PO HS@199903/18/20 03/18/20 Multivitamins, Thera [Multivitamin 1 tab PO DAILY@119903/18/20 03/18/20 (formulary)] Previous Rx's Medication Instructions Recorded Nitroglycerin Sl Tabs [Nitrostat] 0.4 mg SUBLINGUAL Q5M PRN #25 tab 01/08/20 Allergies Allergy/AdvReac Type Severity Reaction Status Date / Time No Known Allergies Allergy Verified 03/18/20 09:48 Review of Systems ROS Statement: Those systems with pertinent positive or pertinent negative responses have been documented in the HPI. ROS Other: All systems not noted in ROS Statement are negative. Past Medical History Past Medical History: Coronary Artery Disease (CAD), Cancer, Chest Pain / Angina, COPD, Dementia, Hyperlipidemia, Hypertension, Memory Impairment, Pneumonia, Thyroid Disorder Additional Past Medical History / Comment(s): Chronic type B aortic dissection, colon cancer twice with surgery, laryngeal cancer with surgery/radiation, stable pulmonary nodules, SOB with minimal exertion, hypothyroid. History of Any Multi-Drug Resistant Organisms: None Reported Past Surgical History: Appendectomy, Bowel Resection, Heart Catheterization Additional Past Surgical History / Comment(s): Bowel resection x2, surgery for laryngeal cancer, colonoscopies/polypectomy, hemorrhoidectomy. Past Anesthesia/Blood Transfusion Reactions: No Reported Reaction Past Psychological History: No Psychological Hx Reported Smoking Status: Former smoker Past Alcohol Use History: None Reported Past Drug Use History: None Reported - Past Family History Brother(s) Family Medical History: Cancer Additional Family Medical History / Comment(s): The patient has 2 brothers and one from bone cancer with metastatic disease, one from COPD. Father Additional Family Medical History / Comment(s): Father at age 82 from myocardial infarction. Mother Additional Family Medical History / Comment(s): Mother at age 70 from COPD. Sister(s) Additional Family Medical History / Comment(s): Patient has 1 sister that from COPD. Patient has one son that at 70 years old as he was hit by a truck. Patient had a total of 2 boys and 2 girls. General Exam Limitations: altered mental status Course Vital Signs 03/18/20 03/18/20 03/18/20 09:06 09:15 09:30 Temperature 97.8 F Pulse Rate 65 56 L 57 L Respiratory 18 18 18 Rate Blood Pressure 159/88 133/79 142/90 O2 Sat by Pulse 97 96 96 Oximetry 03/18/20 03/18/20 09:45 10:00 Temperature Pulse Rate 56 L 59 L Respiratory 18 18 Rate Blood Pressure 119/73 129/78 O2 Sat by Pulse 96 96 Oximetry Medical Decision Making - Lab Data Result diagrams: 03/18/20 09:16 03/18/20 09:16 Lab Results 03/18/20 03/18/20 03/18/20 Range/Units 09:16 09:16 09:16 WBC 9.4 (3.8-10.6) k/uL RBC 5.34 (4.30-5.90) m/uL Hgb 15.5 (13.0-17.5) gm/dL Hct 48.3 (39.0-53.0) % MCV 90.5 (80.0-100.0) fL MCH 29.0 (25.0-35.0) pg MCHC 32.1 (31.0-37.0) g/dL RDW 13.5 (11.5-15.5) % Plt Count 247 (150-450) k/uL Neutrophils % 55 % Lymphocytes % 30 % Monocytes % 6 % Eosinophils % 6 % Basophils % 1 % Neutrophils # 5.1 (1.3-7.7) k/uL Lymphocytes # 2.9 (1.0-4.8) k/uL Monocytes # 0.6 (0-1.0) k/uL Eosinophils # 0.6 (0-0.7) k/uL Basophils # 0.1 (0-0.2) k/uL PT 11.3 (9.0-12.0) sec INR 1.1 (<1.2) APTT 24.4 (22.0-30.0) sec Sodium 142 (137-145) mmol/L Potassium 4.0 (3.5-5.1) mmol/L Chloride 107 (98-107) mmol/L Carbon Dioxide 29 (22-30) mmol/L Anion Gap 6 mmol/L BUN 21 H (9-20) mg/dL Creatinine 0.88 (0.66-1.25) mg/dL Est GFR (CKD-EPI)AfAm >90 (>60 ml/min/1.73 sqM) Est GFR (CKD-EPI)NonAf 81 (>60 ml/min/1.73 sqM) Glucose 91 (74-99) mg/dL Calcium 9.4 (8.4-10.2) mg/dL Total Bilirubin 0.8 (0.2-1.3) mg/dL AST 30 (17-59) U/L ALT 21 (4-49) U/L Alkaline Phosphatase 92 (38-126) U/L Troponin I (0.000-0.034) ng/mL Total Protein 6.7 (6.3-8.2) g/dL Albumin 4.2 (3.5-5.0) g/dL 03/18/20 Range/Units 09:16 WBC (3.8-10.6) k/uL RBC (4.30-5.90) m/uL Hgb (13.0-17.5) gm/dL Hct (39.0-53.0) % MCV (80.0-100.0) fL MCH (25.0-35.0) pg MCHC (31.0-37.0) g/dL RDW (11.5-15.5) % Plt Count (150-450) k/uL Neutrophils % % Lymphocytes % % Monocytes % % Eosinophils % % Basophils % % Neutrophils # (1.3-7.7) k/uL Lymphocytes # (1.0-4.8) k/uL Monocytes # (0-1.0) k/uL Eosinophils # (0-0.7) k/uL Basophils # (0-0.2) k/uL PT (9.0-12.0) sec INR (<1.2) APTT (22.0-30.0) sec Sodium (137-145) mmol/L Potassium (3.5-5.1) mmol/L Chloride (98-107) mmol/L Carbon Dioxide (22-30) mmol/L Anion Gap mmol/L BUN (9-20) mg/dL Creatinine (0.66-1.25) mg/dL Est GFR (CKD-EPI)AfAm (>60 ml/min/1.73 sqM) Est GFR (CKD-EPI)NonAf (>60 ml/min/1.73 sqM) Glucose (74-99) mg/dL Calcium (8.4-10.2) mg/dL Total Bilirubin (0.2-1.3) mg/dL AST (17-59) U/L ALT (4-49) U/L Alkaline Phosphatase (38-126) U/L Troponin I <0.012 (0.000-0.034) ng/mL Total Protein (6.3-8.2) g/dL Albumin (3.5-5.0) g/dL Critical Care Time Critical Care Time: Yes Total Critical Care Time: 33 Disposition Clinical Impression: Altered mental status Disposition: ADMITTED IP TO THIS [facility] Condition: Fair Referrals: Marek Navarro MD [Primary Care Provider] - 1-2 days Decision Time: 10:51
[2020-03-18 09:29] LABS: Basophils # (A) 0.1 k/uL (0-0.2); Basophils % (A) 1 %; Eosinophils # (A) 0.6 k/uL (0-0.7); Eosinophils % (A) 6 %; HCT 48.3 % (39.0-53.0); HGB 15.5 gm/dL (13.0-17.5); Lymphocytes # (A) 2.9 k/uL (1.0-4.8); Lymphocytes % (A) 30 %; MCHC 32.1 g/dL (31.0-37.0); MCV 90.5 fL (80.0-100.0); Mean Platelet Volume 7.1; Monocytes # (A) 0.6 k/uL (0-1.0); Monocytes % (A) 6 %; Neutrophils # (A) 5.1 k/uL (1.3-7.7); Neutrophils % (A) 55 %; Platelet Count 247 k/uL (150-450); RBC 5.34 m/uL (4.30-5.90); RDW 13.5 % (11.5-15.5); WBC 9.4 k/uL (3.8-10.6)
[2020-03-18 09:41] LABS: ALT 21 U/L (4-49); AST 30 U/L (17-59); African American GFR (CKD) >90 (>60 ml/min/1.73 sqM); Albumin 4.2 g/dL (3.5-5.0); Alkaline Phosphatase 92 U/L (38-126); Anion Gap 6 mmol/L; Blood Urea Nitrogen 21 mg/dL (9-20); Calcium 9.4 mg/dL (8.4-10.2); Carbon Dioxide 29 mmol/L (22-30); Chloride 107 mmol/L (98-107); Glucose 91 mg/dL (74-99); Non-African American GFR(CKD) 81 (>60 ml/min/1.73 sqM); Sodium 142 mmol/L (137-145); Total Bilirubin 0.8 mg/dL (0.2-1.3); Total Protein 6.7 g/dL (6.3-8.2)
--- NOTE | 2020-03-18 09:41 | CT ---
EXAMINATION TYPE: CT brain wo con for TPA DATE OF EXAM: 03/18/2020 HISTORY: Acute stroke. Neurodeficit. CT DLP: 1089 mGycm. Automated Exposure Control for Dose Reduction was Utilized. TECHNIQUE: CT scan of the head is performed without contrast. COMPARISON: CT brain 12/31/2017 FINDINGS: There is no acute intracranial hemorrhage, midline shift, or mass effect identified. There is marked volume loss redemonstrated with ex vacuo dilatation of the ventricles. No extra-axial fluid collectio n. Bones and extracranial soft tissues are intact. The globes are grossly symmetric. Visualized sinus es and mastoid air cells are clear. Large soft tissue density in the right external auditory canal. IMPRESSION: 1. No acute intracranial hemorrhage, midline shift, or mass effect. 2. Age-related atrophy and chronic microvascular ischemic changes. 3. Significant soft tissue density within the right external auditory canal may represent impacted ce rumen. Dr. Selina Casey discussed findings with Dr. Olayinka Sr via the phone on 03/18/2020 at 9:37 AM, and results were acknowledged.
[2020-03-18 09:45] LABS: INR 1.1 (<1.2); Partial Thromboplastin Time 24.4 sec (22.0-30.0); Prothrombin Time 11.3 sec (9.0-12.0)
--- NOTE | 2020-03-18 10:04 | XR ---
EXAMINATION TYPE: XR chest 2V DATE OF EXAM: 03/18/2020 COMPARISON: 03/15/2020 TECHNIQUE: PA and lateral views submitted. HISTORY: Altered mental status FINDINGS: The lungs are clear and there is no pneumothorax, pleural effusion, or focal pneumonia. Hyperinflat ion suggests COPD. Hypertrophic and degenerative change of the spine. No overt failure. No pneumothor ax. Arthropathy of the shoulders. Nipple shadow overlying the right midlung. IMPRESSION: 1. No acute process. Correlate for COPD.
--- NOTE | 2020-03-18 10:26 | CT ---
EXAMINATION TYPE: CT angio head neck DATE OF EXAM: 03/18/2020 HISTORY: acute stroke COMPARISON: CT brain 03/18/2020 CT DLP: 350 mGycm. Automated Exposure Control for Dose Reduction was Utilized. TECHNIQUE: CTA scan of the neck is performed with IV Contrast, patient injected with 65 mL of Isovue 370, axial images are obtained, coronal and sagittal reformatted images are reviewed. Three-D recons tructed images are created on an independent workstation and reviewed. Source images are reviewed. FINDINGS: Carotid/Vascular Structures: No evidence of significant stenosis, occlusion, or aneurysm dilatation. Cervical of [place]: Vertebral basilar system appears normal. Posterior cerebral vasculature is unrema rkable. Internal carotid arteries bifurcate normally into A1 and M1 segments. A2 segments are normal. The anterior communicating artery is patent. Left Posterior communicating artery is patent. Right po sterior communicating artery is absent. Three-dimensional images are consistent with the above findings. IMPRESSION: 1. No flow-limiting stenosis or occlusion of the carotid arteries. 2. 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 [place] is patent.
[2020-03-18] MEDS ORDERED: ASPIRIN 81 MG PO STA (10:37)
[2020-03-18] MEDS ORDERED: NITROGLYCERIN SL TABS 0.4 MG TAB SUBLINGUAL PRN (13:00)
[2020-03-18 14:36] VITALS: BMI 16.0
--- NOTE | 2020-03-18 14:49 | P.HPIM ---
History of Present Illness H&P Date: 03/18/20 Chief Complaint: Headache This is an 79-year-old male patient of Dr. Navarro with history of dementia, dyslipidemia, myocardial infarction, dementia, hypothyroidism, colon cancer with recurrence, throat cancer, remote history of tobacco use. Patient was last seen about a week ago in the office and was doing well at that time, no medication changes. Patient lives at home with his which is his primary caregiver and history is obtained from her. She states that he was holding his head i and n saying that his head was feeling hot for about a week. She did bring him into the emergency center on March 15 because he was having chest pain. EKG was a sinus rhythm, he was hemodynamically stable. Chest x-ray was negative. He was diagnosed with atypical chest pain and discharged home. Patient's states that she heard the patient start moaning while she was in the living room and went in to check on him. He was holding his forehead and continued to moan. Samantha myers brought the patient into the emergency center for evaluation he moan on the entire transport. He was very stiff and continue to hold his head. He was also complaining of feeling cold. Code stroke was called. Patient did not have any neuro deficits. Case was reviewed with stroke neurologist Dr. Bond. Patient was not a TPA or thrombectomy candidate. CT and CT angiogram of the head and neck shows no acute processes. CBC, coag panel, metabolic panel is unremarkable. Patient was started on full strength aspirin, admitted to the cardiac stepdown unit and neurology consult requested. At the time of this evaluation, patient is denying any headache. Consult also in place with PT, OT and speech therapy. Discussed discharge plan with the patient's and she is planning for him to return home. Patient may benefit from home care. Review of Systems Constitutional: Denies anorexia, Denies chills, Denies chronic pain, Denies fatigue, Denies fever, Denies lethargy, Denies malaise, Denies poor appetite Eyes: denies blurred vision, denies pain Ears, nose, mouth and throat: Denies dysphagia, Denies headache, Denies sore throat, Denies vertigo Cardiovascular: Denies chest pain, Denies dyspnea on exertion, Denies leg edema, Denies shortness of breath, Denies syncope Respiratory: Denies cough, Denies cough with sputum, Denies dyspnea, Denies excessive sputum, Denies hemoptysis, Denies home oxygen, Denies respiratory infections Gastrointestinal: Denies abdominal pain, Denies bloating, Denies diarrhea, Denies loss of appetite, Denies melena, Denies nausea, Denies vomiting Genitourinary: Denies dysuria, Denies urinary retention Musculoskeletal: Denies frequent falls, Denies gait dysfunction, Denies muscle weakness, Denies myalgias Integumentary: Denies pruritus, Denies rash, Denies wounds Neurological: Denies change in mentation, Denies change in speech, Denies gait dysfunction, Denies numbness, Denies weakness Psychiatric: Denies anxiety, Denies depression Endocrine: Denies fatigue, Denies weight change Past Medical History Past Medical History: Coronary Artery Disease (CAD), Cancer, Chest Pain / Angina, COPD, Dementia, Hyperlipidemia, Hypertension, Memory Impairment, Pneumonia, Respiratory Disorder, Thyroid Disorder, Vascular Disorder Additional Past Medical History / Comment(s): Chronic type B aortic dissection, colon cancer twice with surgery, laryngeal cancer with surgery/radiation, stable pulmonary nodules, SOB with minimal exertion, hypothyroid. History of Any Multi-Drug Resistant Organisms: None Reported Past Surgical History: Appendectomy, Bowel Resection, Heart Catheterization Additional Past Surgical History / Comment(s): Bowel resection x2, surgery for laryngeal cancer, colonoscopies/polypectomy, hemorrhoidectomy. Past Anesthesia/Blood Transfusion Reactions: No Reported Reaction Smoking Status: Former smoker Additional Past Alcohol Use History / Comment(s): Patient was a smoker for 45 years at 1-1/2 packs per day and quit a few years ago. He quit drinking alcohol around 30 years ago. No marijuana or street drug use. Patient lives at home with his , primary caregiver. - Past Family History Brother(s) Family Medical History: Cancer Additional Family Medical History / Comment(s): The patient has 2 brothers and one from bone cancer with metastatic disease, one from COPD. Father Additional Family Medical History / Comment(s): Father at age 82 from myocardial infarction. Mother Additional Family Medical History / Comment(s): Mother at age 70 from COPD. Sister(s) Additional Family Medical History / Comment(s): Patient has 1 sister that from COPD. Patient has one son that - he was hit by a truck. Patient had a total of 2 boys and 2 girls. Medications and Allergies Home Medications Medication Instructions Recorded Confirmed Type Atorvastatin [Lipitor] 20 mg PO DAILY@119905/31/19 03/18/20 History Levothyroxine Sodium [Synthroid] 50 mcg PO DAILY@119905/31/19 03/18/20 History atenoloL [Tenormin] 25 mg PO HS@199901/07/20 03/18/20 History Nitroglycerin Sl Tabs [Nitrostat] 0.4 mg SUBLINGUAL Q5M PRN #25 tab 01/08/20 03/18/20 Rx Cholecalciferol [Vitamin D3 (25 1,000 unit PO DAILY@119903/18/20 03/18/20 History Mcg = 1000 Iu)] Isosorbide Mononitrate ER [Imdur] 30 mg PO DAILY@119903/18/20 03/18/20 History Melatonin 1 mg PO HS@199903/18/20 03/18/20 History Mirtazapine 7.5 mg PO HS@199903/18/20 03/18/20 History Multivitamins, Thera [Multivitamin 1 tab PO DAILY@119903/18/20 03/18/20 History (formulary)] Aspirin 325 mg PO DAILY tab 03/19/20 Rx Allergies Allergy/AdvReac Type Severity Reaction Status Date / Time No Known Allergies Allergy Verified 03/18/20 09:48 Physical Exam Vitals: Vital Signs Temp Pulse Resp BP Pulse Ox 03/18/20 12:14 67 16 130/76 99 03/18/20 11:15 61 16 118/90 97 03/18/20 10:00 59 L 18 129/78 96 03/18/20 09:45 56 L 18 119/73 96 03/18/20 09:30 57 L 18 142/90 96 03/18/20 09:15 56 L 18 133/79 96 03/18/20 09:06 97.8 F 65 18 159/88 97 Intake and Output 03/17/20 03/18/20 03/18/20 22:59 06:59 14:59 Other: Weight 49.442 kg HEENT: Head is atraumatic, normocephalic, pupils were equal round reactive to light and accommodation, extraocular muscle movement were intact. Neck: Supple, no JVD, decreased carotid upstroke bilaterally. Chest: Decreased breath sound at bases, few rhonchi, no expiratory wheezes, no chest wall tenderness, no intercostal retractions. Heart: First heart sound is depressed, second heart sound is normal, there is systolic ejection murmur 2/6 located in the left sternal border. Abdomen: Soft, nontender, nondistended, positive bowel sounds. Extremities: No edema, no calf tenderness, dorsalis pedis +1 bilaterally. Neurologic examination: Patient is awake alert and oriented 1, baseline dementia follow simple commands only, patient moves all his extremities, muscle power 4 out of 5 in upper and lower extremities bilaterally, there is no focal weakness or lateralization there is no pronator drift. Results CBC & Chem 7: 03/18/20 09:16 03/18/20 09:16 Labs: Abnormal Lab Results - Last 24 Hours (Table) 03/18/20 Range/Units 09:16 BUN 21 H (9-20) mg/dL Thrombosis Risk Factor Assmnt - DVT/VTE Prophylaxis DVT/VTE Prophylaxis: Pharmacologic Prophylaxis ordered - Choose All That Apply Any of the Below Risk Factors Present?: Yes Other Risk Factors: Yes Each Risk Factor Represents 2 Points: Malignancy Each Risk Factor Represents 3 Points: Age 75 years or older Other congenital or acquired thrombophilia - If yes, enter type in comment: No Thrombosis Risk Factor Assessment Total Risk Factor Score: 5 Thrombosis Risk Factor Assessment Level: High Risk Assessment and Plan Plan: 1. Headache with concern for stroke or TIA. Testing has been negative thus far. Consult with neurology, PT, OT, speech therapy. 2. Abdominal aortic aneurysm which is being watched by cardiology. 3. History of coronary artery disease. Continue aspirin, Lipitor, atenolol, Imdur. 4. Hypertension and hypertensive cardiovascular disease. Continue atenolol 25 mg orally once every day. 4. Hyperlipidemia. Continue Lipitor 20 mg orally once every day. 5. COPD, stable without exacerbation. Stable. 6. History of throat cancer status post radiation. Remission. 7. History of colon cancer status post bowel resection. Remission. 8. Hypothyroidism. Continue levothyroxine 50 mg daily. 9. Remote history of tobacco use. Stable. 10. Worsening dementia of Alzheimer's type with acute delirium. 11. DVT prophylaxis. Heparin 5000 units subcutaneously every 8 hours. 12. Admit to inpatient for a minimum of 2 night stay. Discharge Plan: Return home as likely with homecare Impression and plan of care have been directed as dictated by the signing physician. Sofia Goodwin nurse practitioner acting as scribe for signing physician.
--- NOTE | 2020-03-18 16:14 | P.CNNES ---
History of Present Illness Consult date: 03/18/20 Requesting physician: Olayinka Sr Reason for Consult: Code stroke History of Present Illness: Patient is a 79-year-old male, who came to the ER today at 9:02 AM for possible stroke. Patient has significant dementia, therefore history provided mainly by patient's . She states that last night he went to bed in usual state of health. She woke up at 6 AM and was doing her usual house chores. At around 8 AM she heard patient making noise in his room, like moaning. She went inside and saw him sitting, holding his head with his hands, moaning loudly, eyes shut, almost as if in pain. She noted there was indentation of skin between his eyebrows. He would not talk. She called EMS. He has to be carried to the bathroom, although otherwise he usually walks without any assistance. He was very stiff. Patient's blood pressure on arrival was 159/88, pulse rate [address] head showed no acute intracranial hemorrhage and midline shift or mass effect. Age-related atrophy and chronic microvascular ischemic changes. Significant soft tissue density within the right external auditory canal may represent impacted cerumen. Chest x-ray showed no acute process. Correlate for COPD. CTA of head and neck showed no flow-limiting stenosis or occlusion of the carotid arteries. 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 [place] is patent. EKG shows sinus rhythm with sinus arrhythmia. Blood test from today shows normal CBC, CMP, PT/P TT, her last hemoglobin A1c 5.4 on 10/21/2015. B12 282 on 12/28/2017. TSH normal. Stroke code was activated in the ER. Stroke neurologist Dr. Alegre was contacted and patient was considered not a candidate for TPA or thrombectomy. Patient's states that since arrival to the hospital he is improving. She thinks he is slightly more irritable and gets upset easily. Patient's also has mentioned that in the last 3 days he has been complaining, saying "my head is hot" although there is no fever. Patient does not have any history of hypertension or diabetes. Patient smokes 1-1/2 pack per day from age [age], when he quit at age 64. Patient has history of fairly advanced dementia, as often he would not remember or recognize his children. Patient has history of laryngeal cancer about 15 years ago, which was treated with removal of the polyp followed by 36 radiation treatments. Patient does take aspirin 81 mg and Lipitor 20 mg at home. Patient's also mentioned that in the ER patient was having some twitching of his left shoulder and jerking of his left arm noted by herself, and another staff in the ED. No previous history of seizures. Review of Systems ROS unobtainable: due to mental status Past Medical History Past Medical History: Coronary Artery Disease (CAD), Cancer, Chest Pain / Angina, COPD, Dementia, Hyperlipidemia, Hypertension, Memory Impairment, Pneumonia, Respiratory Disorder, Thyroid Disorder, Vascular Disorder Additional Past Medical History / Comment(s): Chronic type B aortic dissection, colon cancer twice with surgery, laryngeal cancer with surgery/radiation, stable pulmonary nodules, SOB with minimal exertion, hypothyroid. History of Any Multi-Drug Resistant Organisms: None Reported Past Surgical History: Appendectomy, Bowel Resection, Heart Catheterization Additional Past Surgical History / Comment(s): Bowel resection x2, surgery for laryngeal cancer, colonoscopies/polypectomy, hemorrhoidectomy. Past Anesthesia/Blood Transfusion Reactions: No Reported Reaction Smoking Status: Former smoker - Past Family History Brother(s) Family Medical History: Cancer Additional Family Medical History / Comment(s): The patient has 2 brothers and one from bone cancer with metastatic disease, one from COPD. Father Additional Family Medical History / Comment(s): Father at age 82 from my ocardial infarction. Mother Additional Family Medical History / Comment(s): Mother at age 70 from COPD. Sister(s) Additional Family Medical History / Comment(s): Patient has 1 sister that from COPD. Patient has one son that - he was hit by a truck. Patient had a total of 2 boys and 2 girls. Medications and Allergies Home Medications Medication Instructions Recorded Confirmed Type Atorvastatin [Lipitor] 20 mg PO DAILY@119905/31/19 03/18/20 History Levothyroxine Sodium [Synthroid] 50 mcg PO DAILY@119905/31/19 03/18/20 History Aspirin EC [Ecotrin Low Dose] 81 mg PO DAILY@119901/07/20 03/18/20 History atenoloL [Tenormin] 25 mg PO HS@199901/07/20 03/18/20 History Nitroglycerin Sl Tabs [Nitrostat] 0.4 mg SUBLINGUAL Q5M PRN #25 tab 01/08/20 03/18/20 Rx Cholecalciferol [Vitamin D3 (25 1,000 unit PO DAILY@119903/18/20 03/18/20 History Mcg = 1000 Iu)] Isosorbide Mononitrate ER [Imdur] 30 mg PO DAILY@119903/18/20 03/18/20 History Melatonin 1 mg PO HS@199903/18/20 03/18/20 History Mirtazapine 7.5 mg PO HS@199903/18/20 03/18/20 History Multivitamins, Thera [Multivitamin 1 tab PO DAILY@119903/18/20 03/18/20 History (formulary)] Allergies Allergy/AdvReac Type Severity Reaction Status Date / Time No Known Allergies Allergy Verified 03/18/20 09:48 Physical Examination - Vital Signs Vital Signs: Vital Signs Temp Pulse Resp BP Pulse Ox 03/18/20 12:14 67 16 130/76 99 03/18/20 11:15 61 16 118/90 97 03/18/20 10:00 59 L 18 129/78 96 03/18/20 09:45 56 L 18 119/73 96 03/18/20 09:30 57 L 18 142/90 96 03/18/20 09:15 56 L 18 133/79 96 03/18/20 09:06 97.8 F 65 18 159/88 97 Intake and Output 03/17/20 03/18/20 03/18/20 22:59 06:59 14:59 Other: Weight 49.442 kg On examination patient is an elderly male, laying comfortably in the bed. Patient appears somewhat irritable, edgy, does not want to be examined. H e would not answer to most questions. Speech is mildly dysarthric but no aphasia. On cranial nerve exam agent pupils are round and reacting, visual hairston could not be tested face appears symmetric and tongue protrudes the midline. Hearing is decreased. Shoulder shrug normal. Muscle strength is normal in arms and legs distally and proximally reflexes symmetric. Patient did not cooperate for cerebellar or sensory examination. Tone and bulk of muscles appears normal. Patient did not let me examine for carotid bruit or murmur. No peripheral edema. Abdomen is soft. Chest is clear. Results - Laboratory Findings CBC and BMP: 03/18/20 09:16 03/18/20 09:16 Abnormal Lab Findings: Abnormal Labs 03/18/20 09:16 BUN 21 H Assessment and Plan Assessment: * Possible TIA, rule out CVA * Advanced dementia * Previous history of chronic heavy tobacco use Plan: * Patient had a normal CTA of head and neck. * We will check 2-D echo to rule out embolic source. * MRI of the brain to rule out CVA. * Patient was on aspirin 81 mg daily at home. The dose has been increased to 325 mg. Continue Lipitor. * EEG rule out any epileptiform activity. * We will follow.
[2020-03-18 18:08] VITALS: RESP 18
[2020-03-18] MEDS ORDERED: atenoloL 25 MG TAB PO SCH (20:00)
[2020-03-18] MEDS ORDERED: MELATONIN 1 MG TAB PO SCH (20:00)
[2020-03-18] MEDS ORDERED: MIRTAZAPINE 15 MG TAB PO SCH (20:00)
[2020-03-19 02:32] LABS: Cholesterol 158 mg/dL (<200); HDL Cholesterol 54 mg/dL (40-60); LDL Cholesterol,Calculated 61 mg/dL (0-99); Triglycerides 216 mg/dL (<150)
[2020-03-19 08:09] VITALS: TEMP 97.7
[2020-03-19] MEDS ORDERED: ASPIRIN 325 MG TAB PO SCH (09:00)
[2020-03-19 10:14] VITALS: BP 129/73; PULSE 58
[2020-03-19] MEDS ORDERED: LEVOTHYROXINE 50 MCG TAB PO SCH (12:00)
[2020-03-19] MEDS ORDERED: ATORVASTATIN 20 MG TAB PO SCH (12:00)
[2020-03-19] MEDS ORDERED: ISOSORBIDE MONONITRATE ER 30 MG TAB.ER.24H PO SCH (12:00)
--- NOTE | 2020-03-19 13:42 | P.DS ---
Providers Date of admission: 03/18/20 10:51 Expected date of discharge: 03/19/20 Attending physician: Marek Navarro Consults: 03/18/20 10:37 Consult Physician Routine Consulting Provider: Celeste Martin Consult Reason/Comments: code stroke Do you want consulting provider notified?: Yes Primary care physician: Marek Navarro [facility] Course: This is an 79-year-old male patient of Dr. Navarro with history of dementia, dyslipidemia, myocardial infarction, dementia, hypothyroidism, colon cancer with recurrence, throat cancer, remote history of tobacco use. Patient was last seen about a week ago in the office and was doing well at that time, no medication changes. Patient lives at home with his which is his primary caregiver and history is obtained from her. She states that he was holding his head i and n saying that his head was feeling hot for about a week. She did bring him into the emergency center on March 15 because he was having chest pain. EKG was a sinus rhythm, he was hemodynamically stable. Chest x-ray was negative. He was diagnosed with atypical chest pain and discharged home. Patient's states that she heard the patient start moaning while she was in the living room and went in to check on him. He was holding his forehead and continued to moan. Family brought the patient into the emergency center for evaluation he moan on the entire transport. He was very stiff and continue to hold his head. He was also complaining of feeling cold. Code stroke was called. Patient did not have any neuro deficits. Case was reviewed with stroke neurologist Dr. Bnod. Patient was not a TPA or thrombectomy candidate. CT and CT angiogram of the head and neck shows no acute processes. CBC, coag panel, metabolic panel is unremarkable. Patient was started on full strength aspirin, admitted to the cardiac stepdown unit and neurology consult requested. At the time of this evaluation, patient is denying any headache. Consult also in place with PT, OT and speech therapy. Discussed discharge plan with the patient's and she is planning for him to return home. Patient may benefit from home care. 03/19: Patient has been seen by Dr. Martin for possible TIA, ruled out CVA. Echocardiogram pending report. MRI of the brain showed no acute stroke. There is significant generalized cerebral atrophy. EEG revealed mildly abnormal due to background slowing of mild degree which can be related to encephalopathy of metabolic, vascular degenerative process. No epileptiform activity. Patient was cleared for discharge by neurology. Neurology recommendations to continue aspirin and Lipitor. Aspirin has been increased to 325 mg. Patient has been seen by therapies with recommendations for home with homecare and 24-hour supervision. Patient will be discharged home today in stable condition. Discharge diagnoses: 1. Headache with concern for stroke ruled out. TIA rolled in.. 2. Abdominal aortic aneurysm which is being watched by cardiology. 3. History of coronary artery disease. 4. Hypertension and hypertensive cardiovascular disease. 5. Hyperlipidemia. 6. COPD, stable without exacerbation. Stable. 7. History of throat cancer status post radiation. Remission. 8. History of colon cancer status post bowel resection. Remission. 9. Hypothyroidism. 10. Remote history of tobacco use. Stable. 11. Worsening dementia of Alzheimer's type with acute delirium. Discharge Plan: Return home with his Impression and plan of care have been directed as dictated by the signing physician. Sofia Goodwin nurse practitioner acting as scribe for signing physician. Patient Condition at Discharge: Good Plan - Discharge Summary Discharge Rx Participant: No New Discharge Prescriptions: New Aspirin 325 mg PO DAILY tab Continue Levothyroxine Sodium [Synthroid] 50 mcg PO DAILY@1200 Atorvastatin [Lipitor] 20 mg PO DAILY@1200 atenoloL [Tenormin] 25 mg PO HS@1999 Nitroglycerin Sl Tabs [Nitrostat] 0.4 mg SUBLINGUAL Q5M PRN #25 tab PRN Reason: Chest Pain Mirtazapine 7.5 mg PO HS@1999 Melatonin 1 mg PO HS@1999 Multivitamins, Thera [Multivitamin (formulary)] 1 tab PO DAILY@1200 Cholecalciferol [Vitamin D3 (25 Mcg = 1000 Iu)] 1,000 unit PO DAILY@1200 Isosorbide Mononitrate ER [Imdur] 30 mg PO DAILY@1200 Discontinued Aspirin EC [Ecotrin Low Dose] 81 mg PO DAILY@1200 Discharge Medication List Atorvastatin [Lipitor] 20 mg PO DAILY@1200 05/31/19 [History] Levothyroxine Sodium [Synthroid] 50 mcg PO DAILY@1200 05/31/19 [History] atenoloL [Tenormin] 25 mg PO HS@199901/07/20 [History] Nitroglycerin Sl Tabs [Nitrostat] 0.4 mg SUBLINGUAL Q5M PRN #25 tab 01/08/20 [Rx] Cholecalciferol [Vitamin D3 (25 Mcg = 1000 Iu)] 1,000 unit PO DAILY@119903/18/20 [History] Isosorbide Mononitrate ER [Imdur] 30 mg PO DAILY@119903/18/20 [History] Melatonin 1 mg PO HS@199903/18/20 [History] Mirtazapine 7.5 mg PO HS@199903/18/20 [History] Multivitamins, Thera [Multivitamin (formulary)] 1 tab PO DAILY@119903/18/20 [History] Aspirin 325 mg PO DAILY tab 03/19/20 [Rx] Follow up Appointment(s)/Referral(s): Marek Navarro MD [Primary Care Provider] - 1 Week Patient Instructions/Handouts: Altered Mental Status (GEN) Discharge Disposition: HOME SELF-CARE
[2020-03-19 14:06] LABS: Glucose,Whole Blood 82 mg/dL (75-99)
--- NOTE | 2020-03-19 15:33 | EEG ---
ELECTROENCEPHALOGRAM REPORT DATE OF SERVICE: 03/19/2020. PREAMBLE: This is an 79-year-old male with episode of altered mental status. The patient has dementia. This study is performed to evaluate for any epileptiform activity. EEG FINDINGS: This is a 21-channel routine EEG recording in a patient utilizing 10-20 international system with referential and bipolar montages. Background consists of well-developed, moderately well-regulated, mixed frequencies of low-voltage 6-7 hertz theta with some fast frequency activity. Background is posterior-dominant and seems to be slightly reactive to eye opening and closing. Different stages of sleep were not seen. Photic driving response was not seen. No focal or generalized epileptiform activity was seen. IMPRESSION: This is a mildly abnormal EEG due to background slowing of mild degree, which can be related to encephalopathy of metabolic, vascular or degenerative process. No epileptiform activity was seen. MMODL / IJN: [id number] /
--- NOTE | 2020-03-20 09:30 | CDI ---
Documentation Clarification Form Date: 03/20/20 From: Gina Holland Phone: If you have a question about this query, please contact Shandra Martins, [employer] Operator at [phone] between 8am and 5pm. Admit Date: 03/18/20 Discharge Date:03/19/20 Patient Name: Marlon Alcaraz Visit Number: [id number] ATTENTION: The Clinical Documentation Specialists (CDI) and [facility] Coding Staff appreciate your assistance in clarifying documentation. Please respond to the clarification below the line at the bottom and electronically sign. The CDI & [facility] Coding staff will review the response and follow-up if needed. Please note: Queries are made part of the Legal Health Record. If you have any questions, please contact the author of this message via ITS. Dear Dr. Navarro Possible TIA rule out CVA is documented as a diagnosis in the neurology consult note and discharge summary. Headache with concern for stroke is documented as a discharge diagnosis in the discharge summary. Patient history/risk factors: CAD, hyperlipidemia, history of smoking, hypertensive cardiovascular disease Clinical indicators: altered mental status, dysarthria EEG: This is a mildly abnormal EEG due to background slowing of mild degree, which can be related to encephalopathy of metabolic, vascular or degenerative process. No epileptiform activity was seen. CT: Head and neck: No flow-limiting stenosis or occlusion of the carotid arteries. 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 [place] of [place] patent. CT head: No acute intracranial hemorrhage, midline shift or mass effect. 2. Age related atrophy and chronic microvascular ischemic changes. 3. Significant soft tissue density within the right external auditory canal may represent impacted cerumen. Treatment: Increased aspirin to 325 mg In your professional opinion, please specify: CVA Ruled In (please specify infarction, occlusion, etc. and location) CVA Ruled Out TIA Ruled In TIA Ruled Out Other (please specify): Unable to determine TIA ruled in CVA ruled out MTDD
--- NOTE | 2020-03-20 09:38 | CDI ---
Documentation Clarification Form Date: 03/20/20 From: Gina Holland Phone: If you have a question about this query, please contact Shandra Martins, Cigarette Making Machine Operator at [phone] between 8am and 5pm. Admit Date: 03/18/20 Discharge Date:03/19/20 Patient Name: Marlon Alcaraz Visit Number: [id number] ATTENTION: The Clinical Documentation Specialists (CDI) and [facility] Coding Staff appreciate your assistance in clarifying documentation. Please respond to the clarification below the line at the bottom and electronically sign. The CDI & [facility] Coding staff will review the response and follow-up if needed. Please note: Queries are made part of the Legal Health Record. If you have any questions, please contact the author of this message via ITS. Dear Dr. Navarro Altered Mental Status was documented in the ED note. History/Risk Factors: Dementia, CAD, possible TIA, possible CVA Clinical Indicators: More confusion than usual Labs: BUN 21 EEG: This is a mildly abnormal EEG due to background slowing of mild degree, which can be related to encephalopathy of metabolic, vascular or degenerative process. No epileptiform activity was seen. CT: Head and neck: No flow-limiting stenosis or occlusion of the carotid arteries. 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 Hope of [place] patent. CT: Head: No acute intracranial hemorrhage, midline shift or mass effect. 2. Age-related atrophy and chronic microvascular ischemic changes. 3. Significant soft tissue density within the right external auditory canal may represent impacted cerumen Treatment: 1/2 liter NS bolus Consult: Neurology documented possible TIA, rule out CVA, advanced dementia In your professional opinion, please clarify the etiology of the Altered Mental Status, if known. Delirium (specify cause): Dementia (if know, specify Type and if with/without Behavioral Disturbance) Encephalopathy (specify Type and Underlying Medical Illness) Other condition (please specify) Unable to determine Worsening dementia of Alzheimer type with acute delirium. MTDD
--- NOTE | 2020-03-20 10:29 | P.PN ---
Subjective Progress Note Date: 03/19/20 Late entry Patient was seen for a follow-up on 03/19/2020. Patient's was present. Patient appears much more comfortable, pleasant, smiling, less irritable. Denies headache or any focal symptoms. Objective - Vital Signs Vital signs: Vital Signs Temp 97.7 F 03/19/20 04:00 Pulse 58 L 03/19/20 08:00 Resp 18 03/19/20 08:00 BP 129/73 03/19/20 08:00 Pulse Ox 95 03/19/20 08:00 Intake & Output 03/19/20 03/20/20 03/20/20 18:59 06:59 18:59 Intake Total 120 Balance 120 Intake: Oral 120 - Exam Patient is alert and awake, very pleasant. Face is symmetric. Visual hairston are full. Muscle strength is normal. No obvious ataxia. Tone and bulk of muscles normal. - Labs CBC & Chem 7: 03/18/20 09:16 03/18/20 09:16 Assessment and Plan Assessment: * Possible TIA, no evidence of CVA * Advanced dementia * Previous history of chronic heavy tobacco use * History of CAD * Hypertension * Hyperlipidemia * History of laryngeal cancer, status post radiation. In remission. Plan: * Patient had a normal CTA of head and neck. * 2-D echo has been performed, results pending. This can be followed up by primary physician. * MRI of the brain showed no acute stroke. There is significant generalized cerebral atrophy. Official report still pending at this time. * Patient was on aspirin 81 mg daily at home. The dose has been increased to 325 mg. Continue Lipitor. * EEG was performed, which was mildly abnormal due to background slowing of mild degree, which can be related to encephalopathy of metabolic, vascular degenerative process. No epileptiform activity was seen. * Neurologically clear.
== END 2020-03-19 15:32 | disposition home or self-care (01) | DRG 69 ==
LOC: EC 09:02 → 3SCARD 10:51
PROVIDERS: ADMIT Internal Medicine; ATTEND Internal Medicine
DX: G45.9 Transient cerebral ischemic attack, unspecified (principal); I71.00 Dissection of unspecified site of aorta; F05 Delirium due to known physiological condition; R51 Headache; G30.9 Alzheimer's disease, unspecified; F02.80 Dementia in other diseases classified elsewhere, unspecified severity, without behavioral disturbance, psychotic disturbance, mood disturbance, and anxiety; F03.90 Unspecified dementia, unspecified severity, without behavioral disturbance, psychotic disturbance, mood disturbance, and anxiety; I11.9 Hypertensive heart disease without heart failure; E78.5 Hyperlipidemia, unspecified; E03.9 Hypothyroidism, unspecified; I25.10 Atherosclerotic heart disease of native coronary artery without angina pectoris; I25.2 Old myocardial infarction; I71.4 Abdominal aortic aneurysm, without rupture; J44.9 Chronic obstructive pulmonary disease, unspecified; R00.1 Bradycardia, unspecified; R91.8 Other nonspecific abnormal finding of lung field; Z79.82 Long term (current) use of aspirin; Z79.890 Hormone replacement therapy; Z79.899 Other long term (current) drug therapy; Z92.3 Personal history of irradiation; Z90.49 Acquired absence of other specified parts of digestive tract; Z85.21 Personal history of malignant neoplasm of larynx; Z85.038 Personal history of other malignant neoplasm of large intestine; Z87.891 Personal history of nicotine dependence; Z87.01 Personal history of pneumonia (recurrent); Z86.010 Personal history of colon polyps; Z98.890 Other specified postprocedural states; Z82.49 Family history of ischemic heart disease and other diseases of the circulatory system; Z82.5 Family history of asthma and other chronic lower respiratory diseases; Z80.8 Family history of malignant neoplasm of other organs or systems
CPT/HCPCS: 36415; 70450; 70496; 70498; 70551; 71046; 80053; 80061; 83690; 83735; 83880; 84484; 85025; 85610; 85730; 93005; 93306; 94640; 95816; 96360; 96374; 96375; 99285; 99291

== ENCOUNTER 2020-06-11 11:39 | Emergency (ER) | payer MEDICARE ==
[2020-06-11] MEDS ORDERED: MORPHINE SULFATE 2 MG/ML SYRINGE IVP STA (11:56)
[2020-06-11 12:00] VITALS: RESP 12; TEMP 97.5
[2020-06-11 12:20] LABS: Glucose,Whole Blood 97 mg/dL (75-99)
[2020-06-11 12:33] LABS: Basophils # (A) 0.1 k/uL (0-0.2); Basophils % (A) 1 %; Eosinophils # (A) 0.4 k/uL (0-0.7); Eosinophils % (A) 5 %; HCT 49.2 % (39.0-53.0); HGB 16.2 gm/dL (13.0-17.5); Lymphocytes % (A) 12 %; MCH 29.3 pg (25.0-35.0); MCHC 32.9 g/dL (31.0-37.0); MCV 89.2 fL (80.0-100.0); Mean Platelet Volume 6.7; Monocytes # (A) 0.4 k/uL (0-1.0); Monocytes % (A) 5 %; Neutrophils % (A) 76 %; Platelet Count 202 k/uL (150-450); RBC 5.52 m/uL (4.30-5.90); RDW 12.6 % (11.5-15.5); WBC 7.9 k/uL (3.8-10.6)
[2020-06-11 12:46] LABS: Potassium 4.6 mmol/L (3.5-5.1)
[2020-06-11 12:47] LABS: Albumin 4.2 g/dL (3.5-5.0); Calcium 9.8 mg/dL (8.4-10.2); INR 1.1 (<1.2); Magnesium 2.1 mg/dL (1.6-2.3); Partial Thromboplastin Time 24.6 sec (22.0-30.0); Prothrombin Time 10.9 sec (9.0-12.0); Total Bilirubin 0.7 mg/dL (0.2-1.3); Total Protein 7.1 g/dL (6.3-8.2)
--- NOTE | 2020-06-11 12:57 | CT ---
EXAMINATION TYPE: CT brain wo con DATE OF EXAM: 06/11/2020 COMPARISON: March 18, 2020 HISTORY: headache and weakness. CT DLP: [address] of the brain was performed. The ventricles, basal cisterns and sulci overlying the cerebral convexities demonstrate mild to moder ate enlargement. There is no evidence for intracranial hemorrhage or sulcal effacement. There is decreased attenuation about the periventricular white matter and deep white matter of both c erebral hemispheres, compatible with chronic small vessel ischemia. Differential diagnosis does inclu de demyelination. No mass effects are seen.No midline shift. Osseous calvarium is intact. If symptoms persist consider MRI. IMPRESSION: 1. Age related atrophic and chronic small vessel ischemic change without acute intracranial process s een at this time.
--- NOTE | 2020-06-11 13:10 | XR ---
EXAMINATION TYPE: XR abdomen acute w cxr DATE OF EXAM: 06/11/2020 COMPARISON: CT 08/17/2019 HISTORY: Pain, altered mental status TECHNIQUE: Supine, upright, and Garcia chest views of the abdomen are obtained. There are overlying cardiac leads. FINDINGS: Degenerative disc changes are present in the visualized spine. There is a large amount of retained stool within the colon. Probable vascular calcifications within the pelvis. There are graph the chest shows no acute abnormality. Prominent lung volumes may be indicative of underlying COPD. There is no evidence for pneumoperitoneum. The bowel gas pattern is unremarkable as there is air throughout nondilated small and large bowel. No sizeable air fluid levels. No mass effects are seen. No unusual calcifications. IMPRESSION: Correlate for fecal stasis. No evident bowel obstruction.
[2020-06-11] MEDS ORDERED: MORPHINE SULFATE 2 MG/ML SYRINGE IV STA (14:03)
[2020-06-11] MEDS ORDERED: METOCLOPRAMIDE 5 MG/ML 2 ML VIAL IVP STA (14:11)
[2020-06-11] MEDS ORDERED: ACETAMINOPHEN TAB 325 MG TAB PO STA (14:11)
[2020-06-11 14:33] LABS: Appearance,Urine Clear (Clear); Bilirubin,Urine Negative (Negative); Blood,Urine Negative (Negative); Color,Urine Yellow; Glucose,Urine (UA) Negative (Negative); Ketones,Urine Negative (Negative); Leukocyte Esterase,Urine Large (Negative); Mucus,Urine Rare /hpf; Nitrite,Urine Negative (Negative); Protein,Urine Negative (Negative); RBC,Urine 1 /hpf (0-5); Specific Gravity,Urine 1.016 (1.001-1.035); Squamous Epithelial Cell,Urine <1 /hpf (0-4); Urobilinogen,Urine <2.0 mg/dL (<2.0); WBC,Urine 19 /hpf (0-5)
[2020-06-11 15:17] VITALS: BP 107/81; PULSE 67
[2020-06-11] MEDS ORDERED: cefTRIAXone IN SWFI 1,000 MG/10 ML SYRINGE IVP STA (15:28)
--- NOTE | 2020-06-11 15:57 | ED ---
General Adult HPI - General Chief complaint: Altered Mental Status Stated complaint: altered mental status Time Seen by Provider: 06/11/20 11:49 Source: family, EMS, RN notes reviewed, old records reviewed Mode of arrival: EMS Limitations: altered mental status - History of Present Illness Initial comments: 80-year-old male patient history dementia to ED. Patient is mostly the nonverbal however notes that patient appears to be having headache and altagracia greco had some abdominal pain earlier in the day. Upon evaluation patient appears to be feeling much improved. He denies any acute complaints at this time. Denies chest pain or shortness of breath. Denies any other complaints. Systemic: Pt denies fatigue, fever/chills, rash. Pt denies weakness, night sweats, weight loss. Neuro: Pt denies visual disturbances, syncope or pre-syncope. HEENT: Pt denies ocular discharge or irritation, otalgia, rhinorrhea, pharyngitis or notable lymphadenopathy. Cardiopulmonary: Pt denies chest pain, SOB, heart palpitations, dyspnea on exertion. Abdominal/GI: Pt denies n/v/d. : Pt denies dysuria, burning w/ urination, frequency/urgency. Denies new onset urinary or bowel incontinence. MSK: Pt denies myalgia, loss of strength or function in extremities. Neuro: Pt denies new onset weakness, paresthesias. - Related Data Home Medications Medication Instructions Recorded Confirmed Atorvastatin [Lipitor] 20 mg PO QAM 05/31/19 06/11/20 Levothyroxine Sodium [Synthroid] 50 mcg PO DAILY 05/31/19 06/11/20 atenoloL [Tenormin] 25 mg PO BID 01/07/20 06/11/20 Cholecalciferol [Vitamin D3 (25 1,000 unit PO DAILY 03/18/20 06/11/20 Mcg = 1000 Iu)] Melatonin 1 mg PO HS 03/18/20 06/11/20 Mirtazapine 7.5 mg PO HS 03/18/20 06/11/20 Multivitamins, Thera [Multivitamin 1 tab PO DAILY 03/18/20 06/11/20 (formulary)] Previous Rx's Medication Instructions Recorded Nitroglycerin Sl Tabs [Nitrostat] 0.4 mg SUBLINGUAL Q5M PRN #25 tab 01/08/20 Ciprofloxacin HCl [Cipro] 500 mg PO BID 7 Days #14 tab 06/11/20 Allergies Allergy/AdvReac Type Severity Reaction Status Date / Time No Known Allergies Allergy Verified 06/11/20 13:12 Review of Systems ROS Statement: Those systems with pertinent positive or pertinent negative responses have been documented in the HPI. ROS Other: All systems not noted in ROS Statement are negative. Past Medical History Past Medical History: Coronary Artery Disease (CAD), Cancer, Chest Pain / Angina, COPD, Dementia, Hyperlipidemia, Hypertension, Memory Impairment, Pneumonia, Respiratory Disorder, Thyroid Disorder, Vascular Disorder Additional Past Medical History / Comment(s): Chronic type B aortic dissection, colon cancer twice with surgery, laryngeal cancer with surgery/radiation, stable pulmonary nodules, SOB with minimal exertion, hypothyroid. History of Any Multi-Drug Resistant Organisms: None Reported Past Surgical History: Appendectomy, Bowel Resection, Heart Catheterization Additional Past Surgical History / Comment(s): Bowel resection x2, surgery for laryngeal cancer, colonoscopies/polypectomy, hemorrhoidectomy. Past Anesthesia/Blood Transfusion Reactions: No Reported Reaction Past Psychological History: No Psychological Hx Reported Smoking Status: Former smoker - Past Family History Brother(s) Family Medical History: Cancer Additional Family Medical History / Comment(s): The patient has 2 brothers and one from bone cancer with metastatic disease, one from COPD. Father Additional Family Medical History / Comment(s): Father at age 82 from myocardial infarction. Mother Additional Family Medical History / Comment(s): Mother at age 70 from COPD. Sister(s) Additional Family Medical History / Comment(s): Patient has 1 sister that from COPD. Patient has one son that - he was hit by a truck. Patient had a total of 2 boys and 2 girls. General Exam - General Exam Comments Initial Comments: Constitutional: NAD, AOX3, Pt has pleasant affect. HEENT: NC/AT, trachea midline, neck supple, no lymphadenopathy. Posterior pharynx non erythematous, without exudates. External ears appear normal, without discharge. Mucous membranes moist. Eyes PERRLA, EOM intact. There is no scleral icterus. No pallor noted. Cardiopulmonary: RRR, no murmurs, rubs or gallops, no JVD noted. Lungs CTAB in anterior and posterior hairston. No peripheral edema. Abdominal exam: Abdomen soft and non-distended. Abdomen non-tender to palpation in all 4 quadrants. Bowel sounds active in LLQ. No hepatosplenomegaly. No ecchymosis Neuro: CN II-XI intact. No nuchal rigidity. No raccon eyes, no dinh sign, no hemotympanum. No cervical spinal tenderness. MSK: Full active ROM in upper and lower extremities, 5/5 stregnth. Limitations: altered mental status Course Vital Signs 06/11/20 06/11/20 06/11/20 11:54 13:04 14:08 Temperature 97.5 F L Pulse Rate 71 66 70 Respiratory 12 12 12 Rate Blood Pressure 148/83 123/81 117/81 O2 Sat by Pulse 93 L 99 96 Oximetry 06/11/20 15:16 Temperature Pulse Rate 67 Respiratory 12 Rate Blood Pressure 107/81 O2 Sat by Pulse 95 Oximetry Medical Decision Making - Medical Decision Making 80-year-old male patient ED for evaluation. Patient vital signs are stable, afebrile. Physical exam negative for acute pathology. The brain negative for acute process. Acute abdomen displayed some fecal stasis no bowel obstruction. Patient feeling much improved. Will be discharged with ciprofloxcin for UTI. Will follow up with PCP tomorrow and return to ED with any worsening symptoms. Case discussed with Dr. Pinzon. - Lab Data Result diagrams: 06/11/20 12:15 06/11/20 12:15 Lab Results 06/11/20 06/11/20 06/11/20 Range/Units 12:15 12:15 12:15 WBC 7.9 (3.8-10.6) k/uL RBC 5.52 (4.30-5.90) m/uL Hgb 16.2 (13.0-17.5) gm/dL Hct 49.2 (39.0-53.0) % MCV 89.2 (80.0-100.0) fL MCH 29.3 (25.0-35.0) pg MCHC 32.9 (31.0-37.0) g/dL RDW 12.6 (11.5-15.5) % Plt Count 202 (150-450) k/uL MPV 6.7 Neutrophils % 76 % Lymphocytes % 12 % Monocytes % 5 % Eosinophils % 5 % Basophils % 1 % Neutrophils # 6.0 (1.3-7.7) k/uL Lymphocytes # 1.0 (1.0-4.8) k/uL Monocytes # 0.4 (0-1.0) k/uL Eosinophils # 0.4 (0-0.7) k/uL Basophils # 0.1 (0-0.2) k/uL PT 10.9 (9.0-12.0) sec INR 1.1 (<1.2) APTT 24.6 (22.0-30.0) sec Sodium 143 (137-145) mmol/L Potassium 4.6 (3.5-5.1) mmol/L Chloride 107 (98-107) mmol/L Carbon Dioxide 30 (22-30) mmol/L Anion Gap 6 mmol/L BUN 20 (9-20) mg/dL Creatinine 0.99 (0.66-1.25) mg/dL Est GFR (CKD-EPI)AfAm 82 (>60 ml/min/1.73 sqM) Est GFR (CKD-EPI)NonAf 71 (>60 ml/min/1.73 sqM) Glucose 108 H (74-99) mg/dL POC Glucose (mg/dL) (75-99) mg/dL POC Glu Pickle Solution Maker ID Plasma Lactic Acid Charles (0.7-2.0) mmol/L Calcium 9.8 (8.4-10.2) mg/dL Magnesium 2.1 (1.6-2.3) mg/dL Total Bilirubin 0.7 (0.2-1.3) mg/dL AST 26 (17-59) U/L ALT 16 (4-49) U/L Alkaline Phosphatase 106 (38-126) U/L Troponin I (0.000-0.034) ng/mL Total Protein 7.1 (6.3-8.2) g/dL Albumin 4.2 (3.5-5.0) g/dL Lipase 122 (23-300) U/L Urine Color Urine Appearance (Clear) Urine pH (5.0-8.0) Ur Specific [place] (1.001-1.035) Urine Protein (Negative) Urine Glucose (UA) (Negative) Urine Ketones (Negative) Urine Blood (Negative) Urine Nitrite (Negative) Urine Bilirubin (Negative) Urine Urobilinogen (<2.0) mg/dL Ur Leukocyte Esterase (Negative) Urine RBC (0-5) /hpf Urine WBC (0-5) /hpf Ur Squamous Epith Cells (0-4) /hpf Urine Mucus (None) /hpf 06/11/20 06/11/20 06/11/20 Range/Units 12:15 12:15 12:16 WBC (3.8-10.6) k/uL RBC (4.30-5.90) m/uL Hgb (13.0-17.5) gm/dL Hct (39.0-53.0) % MCV (80.0-100.0) fL MCH (25.0-35.0) pg MCHC (31.0-37.0) g/dL RDW (11.5-15.5) % Plt Count (150-450) k/uL MPV Neutrophils % % Lymphocytes % % Monocytes % % Eosinophils % % Basophils % % Neutrophils # (1.3-7.7) k/uL Lymphocytes # (1.0-4.8) k/uL Monocytes # (0-1.0) k/uL Eosinophils # (0-0.7) k/uL Basophils # (0-0.2) k/uL PT (9.0-12.0) sec INR (<1.2) APTT (22.0-30.0) sec Sodium (137-145) mmol/L Potassium (3.5-5.1) mmol/L Chloride (98-107) mmol/L Carbon Dioxide (22-30) mmol/L Anion Gap mmol/L BUN (9-20) mg/dL Creatinine (0.66-1.25) mg/dL Est GFR (CKD-EPI)AfAm (>60 ml/min/1.73 sqM) Est GFR (CKD-EPI)NonAf (>60 ml/min/1.73 sqM) Glucose (74-99) mg/dL POC Glucose (mg/dL) 97 (75-99) mg/dL POC Glu Pickle Solution Maker ID Lindsay Kimbrough Plasma Lactic Acid Charles 1.3 (0.7-2.0) mmol/L Calcium (8.4-10.2) mg/dL Magnesium (1.6-2.3) mg/dL Total Bilirubin (0.2-1.3) mg/dL AST (17-59) U/L ALT (4-49) U/L Alkaline Phosphatase (38-126) U/L Troponin I <0.012 (0.000-0.034) ng/mL Total Protein (6.3-8.2) g/dL Albumin (3.5-5.0) g/dL Lipase (23-300) U/L Urine Color Urine Appearance (Clear) Urine pH (5.0-8.0) Ur Specific [place] (1.001-1.035) Urine Protein (Negative) Urine Glucose (UA) (Negative) Urine Ketones (Negative) Urine Blood (Negative) Urine Nitrite (Negative) Urine Bilirubin (Negative) Urine Urobilinogen (<2.0) mg/dL Ur Leukocyte Esterase (Negative) Urine RBC (0-5) /hpf Urine WBC (0-5) /hpf Ur Squamous Epith Cells (0-4) /hpf Urine Mucus (None) /hpf 06/11/20 Range/Units 14:00 WBC (3.8-10.6) k/uL RBC (4.30-5.90) m/uL Hgb (13.0-17.5) gm/dL Hct (39.0-53.0) % MCV (80.0-100.0) fL MCH (25.0-35.0) pg MCHC (31.0-37.0) g/dL RDW (11.5-15.5) % Plt Count (150-450) k/uL MPV Neutrophils % % Lymphocytes % % Monocytes % % Eosinophils % % Basophils % % Neutrophils # (1.3-7.7) k/uL Lymphocytes # (1.0-4.8) k/uL Monocytes # (0-1.0) k/uL Eosinophils # (0-0.7) k/uL Basophils # (0-0.2) k/uL PT (9.0-12.0) sec INR (<1.2) APTT (22.0-30.0) sec Sodium (137-145) mmol/L Potassium (3.5-5.1) mmol/L Chloride (98-107) mmol/L Carbon Dioxide (22-30) mmol/L Anion Gap mmol/L BUN (9-20) mg/dL Creatinine (0.66-1.25) mg/dL Est GFR (CKD-EPI)AfAm (>60 ml/min/1.73 sqM) Est GFR (CKD-EPI)NonAf (>60 ml/min/1.73 sqM) Glucose (74-99) mg/dL POC Glucose (mg/dL) (75-99) mg/dL POC Glu Pickle Solution Maker ID Plasma Lactic Acid Charles (0.7-2.0) mmol/L Calcium (8.4-10.2) mg/dL Magnesium (1.6-2.3) mg/dL Total Bilirubin (0.2-1.3) mg/dL AST (17-59) U/L ALT (4-49) U/L Alkaline Phosphatase (38-126) U/L Troponin I (0.000-0.034) ng/mL Total Protein (6.3-8.2) g/dL Albumin (3.5-5.0) g/dL Lipase (23-300) U/L Urine Color Yellow Urine Appearance Clear (Clear) Urine pH 5.0 (5.0-8.0) Ur Specific [place] 1.016 (1.001-1.035) Urine Protein Negative (Negative) Urine Glucose (UA) Negative (Negative) Urine Ketones Negative (Negative) Urine Blood Negative (Negative) Urine Nitrite Negative (Negative) Urine Bilirubin Negative (Negative) Urine Urobilinogen <2.0 (<2.0) mg/dL Ur Leukocyte Esterase Large H (Negative) Urine RBC 1 (0-5) /hpf Urine WBC 19 H (0-5) /hpf Ur Squamous Epith Cells <1 (0-4) /hpf Urine Mucus Rare H (None) /hpf - EKG Data -: EKG Interpreted by Me (and Dr. Pinzon ) EKG Comments: ventricular rate 67, SC interval 118, QRS 90, QT/QTc 410/433. Normal sinus rhythm, normal ekg, no concern for acute ischemia. Disposition Clinical Impression: UTI (urinary tract infection) Disposition: HOME SELF-CARE Condition: Stable Instructions (If sedation given, give patient instructions): Urinary Tract Infection in Men (ED) Additional Instructions: Follow up with PCP tomorrow. Return to ED with any worsening symptoms. Prescriptions: Ciprofloxacin HCl [Cipro] 500 mg PO BID 7 Days #14 tab Is patient prescribed a controlled substance at d/c from ED?: No Referrals: Marek Navarro MD [Primary Care Provider] - 1-2 days
[2020-06-11] MEDS ORDERED: IBUPROFEN 600 MG STARTER PACK 4 TAB BTL PO STA (16:05)
== END 2020-06-11 16:17 | disposition home or self-care (01) ==
LOC: EC 11:39
DX: N39.0 Urinary tract infection, site not specified (principal); I10 Essential (primary) hypertension; I25.119 Atherosclerotic heart disease of native coronary artery with unspecified angina pectoris; E78.5 Hyperlipidemia, unspecified; E03.9 Hypothyroidism, unspecified; Z79.899 Other long term (current) drug therapy; Z79.890 Hormone replacement therapy; Z87.891 Personal history of nicotine dependence; Z85.21 Personal history of malignant neoplasm of larynx; Z85.038 Personal history of other malignant neoplasm of large intestine
CPT/HCPCS: 36415; 93005; 80053; 83605; 83690; 83735; 84484; 85025; 85610; 85730; 81001; 87086; 74022; 70450; 99285; 96374; 96375; 96376; J0696; J2270

== ENCOUNTER 2020-09-04 11:34 | Inpatient (IN) | payer MEDICARE ==
--- NOTE | 2020-09-04 11:50 | ED ---
General Adult HPI - General Chief complaint: Neuro Symptoms/Deficit Stated complaint: AMS Time Seen by Provider: 09/04/20 11:40 Source: patient, EMS Mode of arrival: EMS Limitations: altered mental status - History of Present Illness Initial comments: Dictation was produced using Qianmi dictation software. please excuse any grammatical, word or spelling errors. This patient was cared for during a federal and state declared state of emergency secondary to Covid 19 Chief Complaint: 80-year-old male past medical history of coronary artery disease, dementia, hypertension, subacutechronic headaches presents emergency Department with possible headache. History of Present Illness: Is an 80-year-old male is brought in by EMS. Patient has been showing signs of increased confusion and aggressive behavior. Patient has a history of dementia. Patient unable to provide HPI at this time. History of present illness obtained from EMS. They state that EMS was called by daughter and patient's . He was seen holding his head and making statements saying that "I'm about to ." According to EMS family reports that patient has been having outpatient workup for headaches. Plantar clear what patient's baseline is. Daughter and are allegedly en route to the emergency department. Unable to obtain secondary to patient's mental status. PHYSICAL EXAM: General Impression: Alert, combative, becomes calm with reassurance provided by a female nurse HEENT: Normocephalic atraumatic, extra-ocular movements intact, pupils equal and reactive to light bilaterally, mucous membranes moist. Cardiovascular: Heart regular rate and rhythm Chest: no retractions, no tachypnea Abdomen: abdomen soft, non-tender, non-distended, no organomegaly Musculoskeletal: Pulses present and equal in all extremities, no peripheral edema Motor: no focal deficits noted Neurological: CN II-XII grossly intact, no focal motor or sensory deficits noted Skin: Intact with no visualized rashes Psych: Aggressive ED course: 80 y Old male past medical history dementia presents with history of present illness concerning for acute headache. Signs upon arrival shows heart rate of 104, rest of vital signs within acceptable limits. During physical exam patient reported to nursing that he does not have any pain complaints. Patient is aggressive towards me however he appears to be moving all extremities. He does appear anxious.Physical bedside. More history was obtained from . She states she was concerned and he has been evaluated for these mental status changes in the past. She was concerned and wants to get to the bottom of this. He was supposed to have a neurology appointment outpatient with Dr. Clay however that was canceled because he is brought to the emergency room instead. is so anxious and wants him to be evaluated further. She knows that he has dementia and has been having these episodes on a regular basis. Laboratory evaluation obtained. CBC, coag panel, metabolic panel is unremarkable. Urinalysis is negative. CT computed tomography scan of the brain is unremarkable. Patient was observed in the emergency department for approximately one hours with no acute processes.Case discussed with Dr. Navarro patient's primary care physician. he'll be admitted per request by PCP with consultation to neurology. EKG interpretation: Ventricular rate 91, normal sinus rhythm,. Interval 124, QRS 90, QTc 432. No LA prolongation, no QTC prolongation, no ST or T-wave changes noted. EKG compared to 06/20/2020 showing no changes. Overall, this EKG is unremarkable - Related Data Home Medications Medication Instructions Recorded Confirmed Levothyroxine Sodium [Synthroid] 50 mcg PO DAILY 05/31/19 09/04/20 atenoloL [Tenormin] 25 mg PO BID 01/07/20 09/04/20 Mirtazapine 7.5 mg PO HS 03/18/20 09/04/20 Multivitamins, Thera [Multivitamin 1 tab PO DAILY 03/18/20 09/04/20 (formulary)] Albuterol Sulfate [Ventolin HFA] 2 puff INHALATION RT-QID PRN 09/04/20 09/04/20 Aspirin 325 mg PO DAILY 09/04/20 09/04/20 Previous Rx's Medication Instructions Recorded Nitroglycerin Sl Tabs [Nitrostat] 0.4 mg SUBLINGUAL Q5M PRN #25 tab 01/08/20 Allergies Allergy/AdvReac Type Severity Reaction Status Date / Time No Known Allergies Allergy Verified 09/04/20 12:07 Review of Systems ROS Statement: Those systems with pertinent positive or pertinent negative responses have been documented in the HPI. ROS Other: All systems not noted in ROS Statement are negative. Past Medical History Past Medical History: Coronary Artery Disease (CAD), Cancer, Chest Pain / Angina, COPD, Dementia, Hyperlipidemia, Hypertension, Memory Impairment, Pneumonia, Respiratory Disorder, Thyroid Disorder, Vascular Disorder Additional Past Medical History / Comment(s): Chronic type B aortic dissection, colon cancer twice with surgery, laryngeal cancer with surgery/radiation, stable pulmonary nodules, SOB with minimal exertion, hypothyroid. History of Any Multi-Drug Resistant Organisms: None Reported Past Surgical History: Appendectomy, Bowel Resection, Heart Catheterization Additional Past Surgical History / Comment(s): Bowel resection x2, surgery for laryngeal cancer, colonoscopies/polypectomy, hemorrhoidectomy. Past Anesthesia/Blood Transfusion Reactions: No Reported Reaction Past Psychological History: No Psychological Hx Reported Smoking Status: Former smoker Past Alcohol Use History: None Reported Past Drug Use History: None Reported - Past Family History Brother(s) Family Medical History: Cancer Additional Family Medical History / Comment(s): The patient has 2 brothers and one from bone cancer with metastatic disease, one from COPD. Father Additional Family Medical History / Comment(s): Father at age 82 from myocardial infarction. Mother Additional Family Medical History / Comment(s): Mother at age 70 from COPD. Sister(s) Additional Family Medical History / Comment(s): Patient has 1 sister that from COPD. Patient has one son that - he was hit by a truck. Patient had a total of 2 boys and 2 girls. General Exam Limitations: altered mental status Course Vital Signs 09/04/20 09/04/20 11:40 12:10 Temperature 98.5 F Pulse Rate 104 H Respiratory 21 Rate Blood Pressure 161/96 130/81 O2 Sat by Pulse 97 Oximetry Medical Decision Making - Lab Data Result diagrams: 09/04/20 12:08 09/04/20 12:08 Lab Results 09/04/20 09/04/20 09/04/20 Range/Units 11:50 12:08 12:08 WBC 6.7 (3.8-10.6) k/uL RBC 5.73 (4.30-5.90) m/uL Hgb 16.4 (13.0-17.5) gm/dL Hct 50.3 (39.0-53.0) % MCV 87.9 (80.0-100.0) fL MCH 28.6 (25.0-35.0) pg MCHC 32.5 (31.0-37.0) g/dL RDW 13.0 (11.5-15.5) % Plt Count 221 (150-450) k/uL MPV 7.0 Neutrophils % 47 % Lymphocytes % 38 % Monocytes % 7 % Eosinophils % 5 % Basophils % 1 % Neutrophils # 3.1 (1.3-7.7) k/uL Lymphocytes # 2.5 (1.0-4.8) k/uL Monocytes # 0.4 (0-1.0) k/uL Eosinophils # 0.3 (0-0.7) k/uL Basophils # 0.1 (0-0.2) k/uL PT 10.6 (9.0-12.0) sec INR 1.0 (<1.2) APTT 23.0 (22.0-30.0) sec Sodium (137-145) mmol/L Potassium (3.5-5.1) mmol/L Chloride (98-107) mmol/L Carbon Dioxide (22-30) mmol/L Anion Gap mmol/L BUN (9-20) mg/dL Creatinine (0.66-1.25) mg/dL Est GFR (CKD-EPI)AfAm (>60 ml/min/1.73 sqM) Est GFR (CKD-EPI)NonAf (>60 ml/min/1.73 sqM) Glucose (74-99) mg/dL POC Glucose (mg/dL) 110 H (75-99) mg/dL POC Glu Transcription Specialist ID Shakira Woodruff Calcium (8.4-10.2) mg/dL Urine Color Urine Appearance (Clear) Urine pH (5.0-8.0) Ur Specific [place] (1.001-1.035) Urine Protein (Negative) Urine Glucose (UA) (Negative) Urine Ketones (Negative) Urine Blood (Negative) Urine Nitrite (Negative) Urine Bilirubin (Negative) Urine Urobilinogen (<2.0) mg/dL Ur Leukocyte Esterase (Negative) 09/04/20 09/04/20 Range/Units 12:08 12:17 WBC (3.8-10.6) k/uL RBC (4.30-5.90) m/uL Hgb (13.0-17.5) gm/dL Hct (39.0-53.0) % MCV (80.0-100.0) fL MCH (25.0-35.0) pg MCHC (31.0-37.0) g/dL RDW (11.5-15.5) % Plt Count (150-450) k/uL MPV Neutrophils % % Lymphocytes % % Monocytes % % Eosinophils % % Basophils % % Neutrophils # (1.3-7.7) k/uL Lymphocytes # (1.0-4.8) k/uL Monocytes # (0-1.0) k/uL Eosinophils # (0-0.7) k/uL Basophils # (0-0.2) k/uL PT (9.0-12.0) sec INR (<1.2) APTT (22.0-30.0) sec Sodium 142 (137-145) mmol/L Potassium 4.7 (3.5-5.1) mmol/L Chloride 106 (98-107) mmol/L Carbon Dioxide 28 (22-30) mmol/L Anion Gap 8 mmol/L BUN 16 (9-20) mg/dL Creatinine 0.98 (0.66-1.25) mg/dL Est GFR (CKD-EPI)AfAm 84 (>60 ml/min/1.73 sqM) Est GFR (CKD-EPI)NonAf 73 (>60 ml/min/1.73 sqM) Glucose 119 H (74-99) mg/dL POC Glucose (mg/dL) (75-99) mg/dL POC Glu Transcription Specialist ID Calcium 9.9 (8.4-10.2) mg/dL Urine Color Yellow Urine Appearance Clear (Clear) Urine pH 5.0 (5.0-8.0) Ur Specific [place] 1.025 (1.001-1.035) Urine Protein Negative (Negative) Urine Glucose (UA) Negative (Negative) Urine Ketones Negative (Negative) Urine Blood Negative (Negative) Urine Nitrite Negative (Negative) Urine Bilirubin Negative (Negative) Urine Urobilinogen <2.0 (<2.0) mg/dL Ur Leukocyte Esterase Negative (Negative) Disposition Clinical Impression: Dementia Disposition: ADMITTED IP TO THIS [facility] Condition: Fair Referrals: None,Stated [REFERRING] - 1-2 days Decision Time: 13:01
[2020-09-04 11:55] LABS: Glucose,Whole Blood 110 mg/dL (75-99)
[2020-09-04 12:24] LABS: Appearance,Urine Clear (Clear); Bilirubin,Urine Negative (Negative); Blood,Urine Negative (Negative); Color,Urine Yellow; Glucose,Urine (UA) Negative (Negative); Ketones,Urine Negative (Negative); Leukocyte Esterase,Urine Negative (Negative); Nitrite,Urine Negative (Negative); Protein,Urine Negative (Negative); Specific Gravity,Urine 1.025 (1.001-1.035); Urobilinogen,Urine <2.0 mg/dL (<2.0)
[2020-09-04 12:28] LABS: Calcium 9.9 mg/dL (8.4-10.2); Potassium 4.7 mmol/L (3.5-5.1)
[2020-09-04 12:31] LABS: Prothrombin Time 10.6 sec (9.0-12.0)
[2020-09-04 12:42] LABS: Basophils # (A) 0.1 k/uL (0-0.2); Basophils % (A) 1 %; Eosinophils # (A) 0.3 k/uL (0-0.7); Eosinophils % (A) 5 %; HCT 50.3 % (39.0-53.0); HGB 16.4 gm/dL (13.0-17.5); Lymphocytes # (A) 2.5 k/uL (1.0-4.8); Lymphocytes % (A) 38 %; MCH 28.6 pg (25.0-35.0); MCHC 32.5 g/dL (31.0-37.0); MCV 87.9 fL (80.0-100.0); Monocytes # (A) 0.4 k/uL (0-1.0); Monocytes % (A) 7 %; Neutrophils # (A) 3.1 k/uL (1.3-7.7); Neutrophils % (A) 47 %; Platelet Count 221 k/uL (150-450); RBC 5.73 m/uL (4.30-5.90); WBC 6.7 k/uL (3.8-10.6)
--- NOTE | 2020-09-04 12:45 | CT ---
EXAMINATION TYPE: CT brain wo con DATE OF EXAM: 09/04/2020 HISTORY: Headache with history of dementia CT DLP: 1099.4 mGycm. Automated Exposure Control for Dose Reduction was Utilized. TECHNIQUE: CT scan of the head is performed without contrast. COMPARISON: CT brain June 11, 2020. FINDINGS: There is no acute intracranial hemorrhage or midline shift identified. There is and moder ate to severe diffuse ventricular and sulcal prominence consistent with diffuse age-related cerebral atrophy. There is mild low-attenuation in the periventricular white matter consistent with chronic s mall vessel ischemic change. The globes are intact and the visualized sinuses are clear. Soft tiss ue density right external auditory canal redemonstrated, suspect cerumen, correlate clinically. Less prominent on the left consistent with cerumen. Moderate calcified plaque bilateral carotid bulb level IMPRESSION: No acute intracranial hemorrhage or midline shift. There is moderate to severe diffuse age-related cerebral atrophy and mild chronic small vessel ischemic change redemonstrated. No signif icant change from prior.
[2020-09-04] MEDS ORDERED: NALOXONE 0.4 MG/ML 1 ML VIAL IV PRN (12:59)
--- NOTE | 2020-09-04 14:16 | P.CNNES ---
History of Present Illness Consult date: 09/04/20 Requesting physician: Olayinka Sr Reason for Consult: altered mental status History of Present Illness: This is an 80-year-old gentleman with medical history of the significant dementia, possible TIA (03/2020) coronary artery disease, hypertension, hyperlipidemia, history of laryngeal cancer status post radiation and the patient is in remission and ex-tobacco use that presented to [facility] emergency department via EMS on 09/04/2020 for headaches and altered mental status. Patient is unable to provide a history therefore history by the patient's (Ericka) who is at bedside. Per the patient's she stated that the patient had recurrent headache since yesterday which she was crying with these headaches. T he headache was around 6:30 PM and he was having severe pain and he was crying with these headache then he had another episode that happened 3:30 the o'clock in the morning as well as 6:00 in the morning. She stated that the lights were bothering him but he had no vomiting the patient was not describing the headaches the to his and the patient did not have any focal deficits. She could not tell me if he has any the redness of his eyes. Again he doesn't that they'll the patient any aura prior to the headaches. The headaches lasted for about an hour and a half each but because there are recurrent and that he was a very cruz agitated any convincing him going to . Per the she stated that he's been having these headaches for the last 8 months, and again he's been having a daily headaches lasting 2-3 hours but he'll have the severe headaches once every so often. Again he would not describe the headaches to the patient's . The headache can happen any time of the day per the . Patient has a severe dementia. He has dementia for 30 years according to the and the last couple years at least 2-3 years it's been really worse. She stated that the patient the baseline is oriented 021. He will talk about his family as if there is still alive. He would look at a block and what he would tell his that the bulk is talking to him and then when she asked him what is visible tell him he would tell her I can't tell you. She stated that the patient has been agitated and restless and the last 8 months at least and his condition has been worsening. Patient was supposed to be seeing Dr. Clay for his the neurology first visit but because of his condition and she chose to bring him to the emergency department. Again the patient's baseline mentation is 0-1 only oriented to himself sometimes. Other than that he doesn't know current events and sometimes those remote events and sometimes per the . He is able to feed himself and use the bathroom. He doesn't need any assistance ambulation. Other than that the patient is not able to the care of the bills, etc. Upon reviewing the patient's medical record, she was seen by Dr. Martin at [facility] for possible transient ischemic attack. And his last progress note on 03/20/2020 he stated that it's a possible TIA. Patient had CTA of the head and neck which was normal. Patient also had MRI of the brain which did not show any acute stroke and shows significant generalized cerebral atrophy. Patient the is on aspirin 325 and to continue Lipitor. Patient had an EEG on 03/19/2020 and it's reported as mild abnormal EEG due to background slowing of mild degree, which can be related to encephalopathy of metabolic, vascular or degenerative process. No ablative from activity was seen. Workup in the hospital consisted of: Initial vital signs his blood pressure 161/96, heart rate 104, respiratory of 21, temperature of 98.5 Fahrenheit axillary pulse ox of 97% at room air. CT of the head is reported as no acute intracranial hemorrhage or midline shift. There is moderate to severe diffuse age-related cerebral atrophy and mild chronic small vessel ischemic changes redemonstrated. As no significant change from prior which was on 06/11/2020. Patient white blood cell 6.7 which is considered normal. POC glucose is 10 10 and his serum glucose was 119. Calcium is 9.9 and the rest of the basic electrolytes are normal. Urinalysis is negative for urinary tract infection. Review of Systems Review of system is limited but the prone positive and negatives as per HPI. Past Medical History Past Medical History: Coronary Artery Disease (CAD), Cancer, Chest Pain / Angina, COPD, Dementia, Hyperlipidemia, Hypertension, Memory Impairment, Pneumonia, Respiratory Disorder, Thyroid Disorder, Vascular Disorder Additional Past Medical History / Comment(s): Chronic type B aortic dissection, colon cancer twice with surgery, laryngeal cancer with surgery/radiation, stable pulmonary nodules, SOB with minimal exertion, hypothyroid. History of Any Multi-Drug Resistant Organisms: None Reported Past Surgical History: Appendectomy, Bowel Resection, Heart Catheterization Additional Past Surgical History / Comment(s): Bowel resection x2, surgery for laryngeal cancer, colonoscopies/polypectomy, hemorrhoidectomy. Past Anesthesia/Blood Transfusion Reactions: No Reported Reaction Past Psychological History: No Psychological Hx Reported Smoking Status: Former smoker Past Alcohol Use History: None Reported Past Drug Use History: None Reported - Past Family History Brother(s) Family Medical History: Cancer Additional Family Medical History / Comment(s): The patient has 2 brothers and one from bone cancer with metastatic disease, one from COPD. Father Additional Family Medical History / Comment(s): Father at age 82 from myocardial infarction. Mother Additional Family Medical History / Comment(s): Mother at age 70 from COPD. Sister(s) Additional Family Medical History / Comment(s): Patient has 1 sister that from COPD. Patient has one son that - he was hit by a truck. Patient had a total of 2 boys and 2 girls. Medications and Allergies Home Medications Medication Instructions Recorded Confirmed Type Levothyroxine Sodium [Synthroid] 50 mcg PO DAILY 05/31/19 09/04/20 History atenoloL [Tenormin] 25 mg PO BID 01/07/20 09/04/20 History Nitroglycerin Sl Tabs [Nitrostat] 0.4 mg SUBLINGUAL Q5M PRN #25 tab 01/08/20 09/04/20 Rx Mirtazapine 7.5 mg PO HS 03/18/20 09/04/20 History Multivitamins, Thera [Multivitamin 1 tab PO DAILY 03/18/20 09/04/20 History (formulary)] Albuterol Sulfate [Ventolin HFA] 2 puff INHALATION RT-QID PRN 09/04/20 09/04/20 History Aspirin 325 mg PO DAILY 09/04/20 09/04/20 History Allergies Allergy/AdvReac Type Severity Reaction Status Date / Time No Known Allergies Allergy Verified 09/04/20 12:07 Physical Examination - Vital Signs Vital Signs: Vital Signs Temp Pulse Resp BP Pulse Ox 09/04/20 13:09 70 18 109/70 95 09/04/20 12:10 130/81 09/04/20 11:40 98.5 F 104 H 21 161/96 97 Intake and Output 09/03/20 09/04/20 09/04/20 22:59 06:59 14:59 Other: Weight 53.07 kg GENERAL: The patient is lying and seemed agitated and restless Exam is limited since patient was getting aggressive during the exam. CHEST:Unable to assess. LUNG: Not labored breathing. ABDOMEN/GI: Unable to assess. NEUROLOGICAL: Limited because of his condition/cooperation and was somewhat combative. Higher mental function: The patient is awake, alert, oriented to self only (baseline). Patient correctly name pen. Patient is able to follow few simple commands (showing thumbs up and closing and opening eyes to command). Cranial nerves: The pupils are round, equal. Visual hairtson could not assess. P atient was able to track throughout the room. No facial weakness. No dysarthria from limited language. Rest of cranial Nerves could not be assessed because of his condition. Motor: Gait is deferred. The strength is able to move all extremities above gravity without drift. Cerebellum: Could not assess. Sensation: Not assess. Reflexes (right/left): Not assessed Plantars Not assessed. Results Coagulation study: PT of 10.6, INR 1.0 and PTT of 23.0 - Laboratory Findings CBC and BMP: 09/04/20 12:08 09/04/20 12:08 Abnormal Lab Findings: Abnormal Labs 09/04/20 09/04/20 11:50 12:08 Glucose 119 H POC Glucose (mg/dL) 110 H Assessment and Plan Assessment: This is an 80-year-old gentleman with significant dementia as well as si gnificant medical history that presented to the emergency department on 09/04/2020 for altered mental status Episodes of behaviour disturbance and psychosis in advanced dementia Cephalgia: Unknow exact type (has poor description) Significant history of dementia that is progressively worsening in the last 3 years vitamin B12 in our system was on 12/28/2017 and it was 282 Possible TIA in 03/2020 Hypertension History of coronary artery disease Hyperlipidemia History of left low status post radiation and the patient is a remission X tobacco use Plan: CT of the head is reported as no acute intracranial hemorrhage or midline shift. There is moderate to severe diffuse age-related cerebral atrophy and mild chronic small vessel ischemic changes redemonstrated. As no significant change from prior which was on 06/11/2020. I ordered vitamin B12, folate and TSH. The patient last vitamin B12 in our system was on 12/28/2017 and it was 282 which is a low-normal therefore I'll start the patient on vitamin B12 1000 g IM initially and prior to discharge can place him on PO. The patient had MRI the brain, CTA of the head and an EEG on 03/2020 and none of those tests explained the patient's symptoms (He has same symptoms for past 8 months). I'll start the patient on melatonin 5 mg daily which can help with the migraine headaches as well as with the sleep cycle. I recommend riboflavin 300mg daily for headaches (since can help with migraines) and can be started once discharges (since not availabe as inpatient), it can be found other the counter. I Started the patient on Seroquel 12.5mg 1 tab bid for agitation. SARS-COV2 RNA Rapid test is pending. I spoke with the that the patient's dementia is very advanced and it's getting worse and I notified her that patient might be a threat down the line to her. She does acknowledge that she knows that. She stated it very difficult since they've been for 63 years so she is very attached to him. Defer the rest of the medical management to the primary team The plan was discussed with the patient's , patient's nurse and the ED attending. Thank you for the consulation. Jonn Mcginnis MD Neuro-Hospitalist Time with Patient: Greater than 30
[2020-09-04] MEDS: CYANOCOBALAMIN 1,000 MCG/ML 1 ML VIAL IM SCH (16:45)
[2020-09-04] MEDS: MELATONIN 5 MG TABLET PO SCH (20:20)
[2020-09-04] MEDS: QUEtiapine 25 MG TAB PO SCH (20:21)
[2020-09-05] MEDS ORDERED: NITROGLYCERIN SL TABS 0.4 MG TAB SUBLINGUAL PRN (08:19)
[2020-09-05] MEDS ORDERED: ALBUTEROL NEBULIZED 2.5 MG/3 ML INHALATION PRN (08:19)
[2020-09-05] MEDS: atenoloL 25 MG TAB PO SCH ×2 (09:56→20:13)
[2020-09-05] MEDS: LEVOTHYROXINE 50 MCG TAB PO SCH (09:56)
[2020-09-05] MEDS: MULTIVITAMINS, THERA 1 EACH TAB PO SCH (09:56)
[2020-09-05] MEDS: ASPIRIN 325 MG TAB PO SCH (09:56)
[2020-09-05] MEDS: CYANOCOBALAMIN 1,000 MCG/ML 1 ML VIAL IM SCH (09:56)
[2020-09-05] MEDS: QUEtiapine 25 MG TAB PO SCH ×2 (09:57→20:14)
[2020-09-05 11:39] VITALS: BMI 16.7
--- NOTE | 2020-09-05 14:49 | P.HPIM ---
History of Present Illness H&P Date: 09/04/20 Chief Complaint: Mental status changes. This is an 80-year-old male patient of Dr. Navarro with history of dementia, dyslipidemia, myocardial infarction, dementia, hypothyroidism, colon cancer with recurrence, throat cancer, remote history of tobacco use.patient was presented to the emergency department at [facility] with increased headache as well as severe mental status changes with aggressiveness and behavioral changes toward the , patient's stated that the patient did not sleep much last night he woke up at around 9:00 in the evening and he was complaining of increased headache at that time and he was wondering the house not sure what he wanted at 3:30 in the morning he became quite agitated and combative she ended up calling EMS patient was brought into the emergency department for evaluation computed tomography scan of the brain did show small vessel disease with brain atrophy without acute infarct or bleed, patient was admitted to the hospital for neurologic evaluation due to mental status changes and behavioral issues. Patient's is not able to take care of him at home at this point and he most likely will need to be placed and exited the facility at this time. Review of Systems Constitutional: Reports anorexia, Reports chronic headaches, Reports chronic pain, Reports fatigue, Reports weakness, Reports weight loss Eyes: bilateral blurred vision, bilateral decreased vision, denies bulging eye Ears: bilateral: decreased hearing Cardiovascular: Reports decreased exercise tolerance, Reports dyspnea on ex ertion, Reports shortness of breath, Denies chest pain, Denies leg edema, Denies rapid heart beat, Denies syncope Respiratory: Reports cough, Reports wheezing, Denies congestion, Denies cough with sputum, Denies home oxygen, Denies pain, Denies sleep apnea, Denies snoring Gastrointestinal: Reports loss of appetite, Denies abdominal pain, Denies blo ating, Denies BRBPR, Denies dyspepsia, Denies excessive gas, Denies indigestion, Denies melena, Denies nausea, Denies vomiting Genitourinary: Reports nocturia, Reports urinary frequency, Denies dysuria Musculoskeletal: Reports gait dysfunction Musculoskeletal: absent: ankle pain, ankle stiffness, ankle swelling, elbow pain, elbow stiffness, elbow swelling, foot pain, foot stiffness, foot swelling, hand pain, hand stiffness, hand swelling, hip pain, hip stiffness, hip swelling, knee pain, knee stiffness, knee swelling, shoulder pain, shoulder stiffness, shoulder swelling, wrist pain, wrist stiffness, wrist swelling Integumentary: Denies pruritus, Denies rash Neurological: Reports balance difficulties, Reports confusion, Reports headaches, Reports memory loss, Reports visual changes Psychiatric: Reports change in appetite, Reports change in sleep habits, Reports insomnia, Reports irritability, Reports memory loss, Reports sleep disturbances, Denies sadness/tearfulness, Denies suicidal ideation Endocrine: Denies fatigue, Denies weight change Past Medical History Past Medical History: Coronary Artery Disease (CAD), Cancer, Chest Pain / Angina, COPD, Dementia, Hyperlipidemia, Hypertension, Memory Impairment, Pneumonia, Respiratory Disorder, Thyroid Disorder, Vascular Disorder Additional Past Medical History / Comment(s): Chronic type B aortic dissection, colon cancer twice with surgery, laryngeal cancer with surgery/radiation, stable pulmonary nodules, SOB with minimal exertion, hypothyroid. History of Any Multi-Drug Resistant Organisms: None Reported Past Surgical History: Appendectomy, Bowel Resection, Heart Catheterization Additional Past Surgical History / Comment(s): Bowel resection x2, surgery for laryngeal cancer, colonoscopies/polypectomy, hemorrhoidectomy. Past Anesthesia/Blood Transfusion Reactions: No Reported Reaction Past Psychological History: No Psychological Hx Reported Smoking Status: Former smoker Past Alcohol Use History: None Reported Past Drug Use History: None Reported - Past Family History Brother(s) Family Medical History: Cancer Additional Family Medical History / Comment(s): The patient has 2 brothers and one from bone cancer with metastatic disease, one from COPD. Father Additional Family Medical History / Comment(s): Father at age 82 from myocardial infarction. Mother Family Medical History: COPD Additional Family Medical History / Comment(s): Mother at age 70 from COPD. Sister(s) Family Medical History: COPD Additional Family Medical History / Comment(s): Patient has 1 sister that from COPD. Patient has one son that - he was hit by a truck. Patient had a total of 2 boys and 2 girls. Medications and Allergies Home Medications Medication Instructions Recorded Confirmed Type Levothyroxine Sodium [Synthroid] 50 mcg PO DAILY 05/31/19 09/04/20 History atenoloL [Tenormin] 25 mg PO BID 01/07/20 09/04/20 History Nitroglycerin Sl Tabs [Nitrostat] 0.4 mg SUBLINGUAL Q5M PRN #25 tab 06/09/20 02/04/21 Rx Mirtazapine 7.5 mg PO HS 03/18/20 09/04/20 History Multivitamins, Thera [Multivitamin 1 tab PO DAILY 03/18/20 09/04/20 History (formulary)] Albuterol Sulfate [Ventolin HFA] 2 puff INHALATION RT-QID PRN 09/04/20 09/04/20 History Aspirin 325 mg PO DAILY 09/04/20 09/04/20 History Allergies Allergy/AdvReac Type Severity Reaction Status Date / Time No Known Allergies Allergy Verified 09/04/20 12:07 Physical Exam Vitals: Vital Signs Temp Pulse Pulse Resp BP BP Pulse Ox 09/04/20 22:40 17 09/04/20 22:25 97.8 F 110 H 17 110/74 95 09/04/20 22:10 18 09/04/20 20:28 98.3 F 98 18 135/93 95 09/04/20 13:09 70 18 109/70 95 09/04/20 12:10 130/81 09/04/20 11:40 98.5 F 104 H 21 161/96 97 Intake and Output 09/04/20 09/05/20 09/05/20 22:59 06:59 14:59 Intake Total 100 200 Balance 100 200 Intake: Oral 100 200 Other: Voiding Method Toilet Toilet Urinal Urinal Diaper Diaper # Voids 1 physical examination: HEENT: Head is atraumatic, normocephalic, pupils were equal round reactive to light and accommodation, extraocular muscle movement were intact. Neck: Supple, no JVD, decreased carotid upstroke bilaterally. Chest: Decreased breath sound at bases, few rhonchi, no expiratory wheezes, no chest wall tenderness, no intercostal retractions. Heart: First heart sound is depressed, second heart sound is normal, there is systolic ejection murmur 2/6 located in the left sternal border. Abdomen: Soft, nontender, nondistended, positive bowel sounds. Extremities: No edema, no calf tenderness, dorsalis pedis +1 bilaterally. Neurologic examination: Patient is awake alert and oriented 1, baseline dementia follow simple commands only, patient moves all his extremities, muscle power 4 out of 5 in upper and lower extremities bilaterally, there is no focal weakness or lateralization there is no pronator drift. Results CBC & Chem 7: 09/04/20 12:08 09/04/20 12:08 Labs: Abnormal Lab Results - Last 24 Hours (Table) 09/04/20 09/04/20 Range/Units 11:50 12:08 Glucose 119 H (74-99) mg/dL POC Glucose (mg/dL) 110 H (75-99) mg/dL Thrombosis Risk Factor Assmnt - DVT/VTE Prophylaxis DVT/VTE Prophylaxis: Pharmacologic Prophylaxis ordered, Mechanical Prophylaxis ordered - Choose All That Apply Any of the Below Risk Factors Present?: Yes Each Factor Represents 1 point: Medical pt on bed rest Other Risk Factors: Yes Each Risk Factor Represents 2 Points: Patient confined to bed, Malignancy Each Risk Factor Represents 3 Points: Age 75 years or older Other congenital or acquired thrombophilia - If yes, enter type in comment: No Thrombosis Risk Factor Assessment Total Risk Factor Score: 8 Thrombosis Risk Factor Assessment Level: High Risk Assessment and Plan Assessment: Assessment and Plan Plan: 1. recurrent headache with mental status changes and aggressive behavior in patient with severe Alzheimer dementia. Patient will be seen in consultation by neurology will be evaluated by physical therapy and occupational therapy, social media content specialist consultation for discharge planning and possible extended care facility placement.patient was started on Riboflavin 300 mg orally once every day along with B12 1000 g intramuscularly daily. 2. Abdominal aortic aneurysm which is being watched by cardiology. 3. History of coronary artery disease. we will continue mg orally once every day, atenolol 25 mg orally twice every day. 4. Hypertension and hypertensive cardiovascular disease. Continue atenolol 25 mg orally twice every day. 4. Hyperlipidemia. Continue Lipitor 20 mg orally once every day. 5. COPD, stable without exacerbation. Stable.we'll continue with albuterol HFA 2 puffs inhalation every 4 hours as needed. 6. History of throat cancer status post radiation. Remission. 7. History of colon cancer status post bowel resection. Remission. 8. Hypothyroidism. Continue levothyroxine 50 mg daily. 9. Remote history of tobacco use. Stable. 10. Worsening dementia of Alzheimer's typewith behavioral disturbances. Patient was started on Seroquel 12.5 mg orally twice every day 11. DVT prophylaxis. Heparin 5000 units subcutaneously every 8 hours. 12. GI prophylaxis. Continue patient Protonix 40 mg orally once every day. 13. Admit to inpatient for a minimum of 2 night stay. Discharge Plan: likely stented care facility, physical therapy, occupational therapy, social media content specialist consultation.
--- NOTE | 2020-09-05 14:52 | P.PN ---
Subjective Progress Note Date: 09/05/20 This is an 80-year-old male patient of Dr. Navarro with history of dementia, dyslipidemia, myocardial infarction, dementia, hypothyroidism, colon cancer with recurrence, throat cancer, remote history of tobacco use.patient was presented to the emergency department at [facility] today with increased headache as well as severe mental status changes with aggressiveness and behavioral changes toward the , patient's stated that the patient did not sleep much last night he woke up at around 9:00 in the evening and he was complaining of increased headache at that time and he was wondering the house not sure what he wanted at 3:30 in the morning he became quite agitated and combative she e nded up calling EMS patient was brought into the emergency department for evaluation computed tomography scan of the brain did show small vessel disease with brain atrophy without acute infarct or bleed, patient was admitted to the hospital for neurologic evaluation due to mental status changes and behavioral issues. Patient's is not able to take care of him at home at this point and he most likely will need to be placed and exited the facility at this time. 09/05: patient is laying down in bed he was aggressively earlier with the nursing staff and the nursing education consultant, he is currently sleeping in no apparent distress, there does not appear to be in acute distress, he has not had any breakfast, patient was seen yesterday by neurology recommended B12 1000 g intramuscularly once every day for now, he'll be switched to oral as well as Riboflavin 300 mg orally once every day, monitor the patient very closely, continue with Seroquel 12.5 mg orally twice every day, likely the patient will require placement in a subacute rehabitation. Objective - Vital Signs Vital signs: Vital Signs Temp 97.8 F 09/04/20 22:25 Pulse 110 H 09/04/20 22:25 Resp 17 09/04/20 22:40 BP 110/74 09/04/20 22:25 Pulse Ox 95 09/04/20 22:25 Intake & Output 09/04/20 09/05/20 09/05/20 18:59 06:59 18:59 Intake Total 300 Balance 300 Weight 53.07 kg 53.07 kg Intake: Oral 300 Other: Voiding Method Toilet Toilet Urinal Urinal Diaper Diaper # Voids 1 - Exam Review of Systems Constitutional: Reports anorexia, Reports chronic headaches, Reports chronic pain, Reports fatigue, Reports weakness, Reports weight loss Eyes: bilateral blurred vision, bilateral decreased vision, denies bulging eye Ears: bilateral: decreased hearing Cardiovascular: Reports decreased exercise tolerance, Reports dyspnea on exertion, Reports shortness of breath, Denies chest pain, Denies leg edema, Denies rapid heart beat, Denies syncope Respiratory: Reports cough, Reports wheezing, Denies congestion, Denies cough with sputum, Denies home oxygen, Denies pain, Denies sleep apnea, Denies snoring Gastrointestinal: Reports loss of appetite, Denies abdominal pain, Denies bloating, Denies BRBPR, Denies dyspepsia, Denies excessive gas, Denies indigestion, Denies melena, Denies nausea, Denies vomiting Genitourinary: Reports nocturia, Reports urinary frequency, Denies dysuria Musculoskeletal: Reports gait dysfunction Musculoskeletal: absent: ankle pain, ankle stiffness, ankle swelling, elbow pain, elbow stiffness, elbow swelling, foot pain, foot stiffness, foot swelling, hand pain, hand stiffness, hand swelling, hip pain, hip stiffness, hip swelling, knee pain, knee stiffness, knee swelling, shoulder pain, shoulder stiffness, shoulder swelling, wrist pain, wrist stiffness, wrist swelling Integumentary: Denies pruritus, Denies rash Neurological: Reports balance difficulties, Reports confusion, Reports headaches, Reports memory loss, Reports visual changes Psychiatric: Reports change in appetite, Reports change in sleep habits, Reports insomnia, Reports irritability, Reports memory loss, Reports sleep disturbances, Denies sadness/tearfulness, Denies suicidal ideation Endocrine: Denies fatigue, Denies weight change physical examination: HEENT: Head is atraumatic, normocephalic, pupils were equal round reactive to light and accommodation, extraocular muscle movement were intact. Neck: Supple, no JVD, decreased carotid upstroke bilaterally. Chest: Decreased breath sound at bases, few rhonchi, no expiratory wheezes, no chest wall tenderness, no intercostal retractions. Heart: First heart sound is depressed, second heart sound is normal, there is systolic ejection murmur 2/6 located in the left sternal border. Abdomen: Soft, nontender, nondistended, positive bowel sounds. Extremities: No edema, no calf tenderness, dorsalis pedis +1 bilaterally. Neurologic examination: Patient is awake alert and oriented 1, baseline dementia follow simple commands only, patient moves all his extremities, muscle power 4 out of 5 in upper and lower extremities bilaterally, there is no focal weakness or lateralization there is no pronator drift. - Labs CBC & Chem 7: 09/04/20 12:08 09/04/20 12:08 Assessment and Plan Assessment: Assessment and Plan Plan: 1. Recurrent headache with mental status changes and aggressive behavior in patient with severe Alzheimer dementia.patient was started on Riboflavin 300 mg orally once every day along with B12 1000 g intramuscularly daily. 2. Abdominal aortic aneurysm which is being watched by cardiology. 3. History of coronary artery disease. we will continue [id number] mg orally once every day, atenolol 25 mg orally twice every day. 4. Hypertension and hypertensive cardiovascular disease. Continue atenolol 25 mg orally twice every day. 4. Hyperlipidemia. Continue Lipitor 20 mg orally once every day. 5. COPD, stable without exacerbation. Stable.we'll continue with albuterol HFA 2 puffs inhalation every 4 hours as needed. 6. History of throat cancer status post radiation. Remission. 7. History of colon cancer status post bowel resection. Remission. 8. Hypothyroidism. Continue levothyroxine 50 mg daily. 9. Remote history of tobacco use. Stable. 10. Worsening dementia of Alzheimer's typewith behavioral disturbances. Patient was started on Seroquel 12.5 mg orally twice every day 11. DVT prophylaxis. Heparin 5000 units subcutaneously every 8 hours. 12. GI prophylaxis. Continue patient Protonix 40 mg orally once every day. 13. [facility], [facility], occupational therapy, social worker clinical consultation.
--- NOTE | 2020-09-05 16:07 | P.PN ---
Subjective Progress Note Date: 09/05/20 I was notified by the nurse the patient was sleeping the most of the day. When he is awoken he'll get agitated and restless. The is at bedside and she stated that the patient the has not been having any headaches since she's been awaken and while he is sleeping he hasn't been the morning regarding his head. As no nausea or vomiting. Objective - Vital Signs Vital signs: Vital Signs Temp 98.0 F 09/05/20 14:00 Pulse 80 09/05/20 14:00 Resp 15 09/05/20 14:00 BP 98/58 09/05/20 14:00 Pulse Ox 92 L 09/05/20 14:00 Intake & Output 09/04/20 09/05/20 09/05/20 18:59 06:59 18:59 Intake Total 300 Balance 300 Weight 53.07 kg 53.07 kg Intake: Oral 300 Other: Voiding Method Toilet Toilet Urinal Urinal Diaper Diaper # Voids 1 - Exam GENERAL: The patient is lying and not in acute distress Exam is limited since patient was getting aggressive upon performing exam. NEUROLOGICAL: Limited because of his condition/cooperation and was somewhat combative. Higher mental function: The patient is awake, alert, oriented to self only (baseline). Patient correctly name pen. Patient is able to follow few simple commands (showing thumbs up and closing and opening eyes to command). Cranial nerves: The pupils are round, equal. Visual hairston could not assess. Patient was able to track throughout the room. No facial weakness. No dysarthria from limited language. Rest of cranial Nerves could not be assessed because of his condition. Motor: Gait is deferred. The strength is able to move all extremities above gravity without drift. Cerebellum: Could not assess. Sensation: Not assess. Reflexes (right/left): Not assessed Plantars Not assessed. - Labs CBC & Chem 7: 09/04/20 12:08 09/04/20 12:08 Assessment and Plan Assessment: This is an 80-year-old gentleman with significant dementia as well as significant medical history that presented to the emergency department on 09/04/2020 for altered mental status Episodes of behaviour disturbance and psychosis in advanced dementia Cephalgia: Unknow exact type (has poor description) Significant history of dementia that is progressively worsening in the last 3 years vitamin B12 in our system was on 12/28/2017 and it was 282 Possible TIA in 03/2020 Hypertension History of coronary artery disease Hyperlipidemia History of left low status post radiation and the patient is a remission X tobacco use Plan: CT of the head is reported as no acute intracranial hemorrhage or midline shift. There is moderate to severe diffuse age-related cerebral atrophy and mild chronic small vessel ischemic changes redemonstrated. As no significant change from prior which was on 06/11/2020. vitamin B12: 855 (normal), folate 468 (normal) and TSH 2.89 (normal). The patient last vitamin B12 in our system was on 12/28/2017 and it was 282 which is a low-normal therefore I'll start the patient on vitamin B12 1000 g IM initially and prior to discharge can place him on PO. The patient had MRI the brain, CTA of the head and an EEG on 03/2020 and none of those tests explained the patient's symptoms (He has same symptoms for past 8 months). Continue melatonin 5 mg daily which can help with the migraine headaches as well as with the sleep cycle. I recommend riboflavin 300mg daily for headaches (since can help with migraines) and can be started once discharges (since not availabe as inpatient), it can be found other the counter. The primary testarted Remeron 7.5mg qhs. Continue Seroquel 12.5mg 1 tab bid for agitation. If the patient gets too agitated consider giving the patient the Haldol IV low-dose. I spoke with the yesterday that the patient's dementia is very advanced and it's getting worse and I notified her that patient might be a threat down the line to her. She does acknowledge that she knows that. She stated it very difficult since they've been for 63 years so she is very attached to him. Defer the rest of the medical management to the primary team There is no further neurological work-up needed at this time. Jonn Mcginnis MD Neuro-Hospitalist Time with Patient: Less than 30
[2020-09-05] MEDS: HEPARIN SODIUM,PORCINE 5,000 UNIT/ML 1 ML VIAL SQ SCH ×2 (17:40→23:34)
[2020-09-05] MEDS: MELATONIN 5 MG TABLET PO SCH (20:13)
[2020-09-05] MEDS: MIRTAZAPINE 15 MG TAB PO SCH (20:13)
[2020-09-06] MEDS: LEVOTHYROXINE 50 MCG TAB PO SCH (05:15)
[2020-09-06] MEDS: ASPIRIN 325 MG TAB PO SCH (09:44)
[2020-09-06] MEDS: HEPARIN SODIUM,PORCINE 5,000 UNIT/ML 1 ML VIAL SQ SCH ×3 (09:44→23:17)
[2020-09-06] MEDS: QUEtiapine 25 MG TAB PO SCH ×2 (09:44→19:38)
[2020-09-06] MEDS: CYANOCOBALAMIN 1,000 MCG/ML 1 ML VIAL IM SCH (09:44)
[2020-09-06] MEDS: MULTIVITAMINS, THERA 1 EACH TAB PO SCH (09:44)
[2020-09-06] MEDS: atenoloL 25 MG TAB PO SCH ×2 (09:44→19:38)
[2020-09-06] MEDS: PANTOPRAZOLE 40 MG TABLET PO SCH (09:44)
--- NOTE | 2020-09-06 19:36 | PN ---
PROGRESS NOTE DATE OF SERVICE: 09/06/2020 I am covering for Dr. Navarro. DATE OF SERVICE: This 80-year-old gentleman who was admitted with recurrent headache and as well as change in mental status is being closely monitored at this time. The patient has somewhat aggressive behavior also. The patient is started on riboflavin. The patient also had abdominal aortic aneurysm, multiple other medical issues also. The is actually sitting beside him. The CT scan of the brain which I reviewed personally showed significant atrophy with some ventricular dilatation. PAST MEDICAL HISTORY: Reviewed. REVIEW OF SYSTEM: Could not be taken. CURRENT MEDICATIONS: Reviewed and include: Ventolin, aspirin, Tenormin, vitamin B1, heparin, Synthroid, melatonin, Remeron, multivitamins, Narcan, Protonix and Seroquel. PHYSICAL EXAM: Patient is conscious, confused. Pulse is 67. Blood pressure 120/75, respirations 18, temperature 97.3, pulse ox 97% on room air. HEENT: Conjunctivae normal. NECK: No JVD. CARDIOVASCULAR: S1, S2 muffled. RESPIRATION: Breath sounds diminished in the bases. No rhonchi. No crackles. ABDOMEN: Soft, nontender. LEGS are no edema. No swelling. LABS: CBC noted. Glucose 119, Covid 19 was negative. Chest x-ray was not available. ASSESSMENT: 1. Recurrent headache and change in mental status, possibly acute delirium. 2. Dementia with aggressive behavior. 3. Abdominal aortic aneurysm. 4. History of coronary artery disease. 5. Hypertension. 6. Hypertensive heart disease. 7. Hyperlipidemia. 8. History of chronic obstructive pulmonary disease. 9. History of throat cancer. 10.History of colon cancer. 11.Hypothyroidism. 12.Remote history of nicotine dependence. 13.Worsening dementia. 14.Deep vein thrombosis prophylaxis and gastrointestinal prophylaxis. RECOMMENDATIONS AND DISCUSSION: Recommend to continue current medications, management and symptomatic treatment. Continue with current medications which include Seroquel which appears to be making the patient calm. Continue to monitor, and monitor blood pressure closely. Medication reconciliation was done. Prognosis guarded. Discussed with the patient's at the bedside. Further recommendations to follow. MMODL / IJN: [id number] /
[2020-09-06] MEDS: ACETAMINOPHEN TAB 325 MG TAB PO PRN (19:37)
[2020-09-06] MEDS: MELATONIN 5 MG TABLET PO SCH (19:38)
[2020-09-06] MEDS: MIRTAZAPINE 15 MG TAB PO SCH (19:38)
[2020-09-07] MEDS: PANTOPRAZOLE 40 MG TABLET PO SCH (08:51)
[2020-09-07] MEDS: ASPIRIN 325 MG TAB PO SCH (08:51)
[2020-09-07] MEDS: QUEtiapine 25 MG TAB PO SCH ×2 (08:51→20:33)
[2020-09-07] MEDS: MULTIVITAMINS, THERA 1 EACH TAB PO SCH (08:51)
[2020-09-07] MEDS: atenoloL 25 MG TAB PO SCH ×2 (08:51→20:33)
[2020-09-07] MEDS: LEVOTHYROXINE 50 MCG TAB PO SCH (08:51)
[2020-09-07] MEDS: CYANOCOBALAMIN 1,000 MCG/ML 1 ML VIAL IM SCH (08:52)
[2020-09-07] MEDS: HEPARIN SODIUM,PORCINE 5,000 UNIT/ML 1 ML VIAL SQ SCH ×3 (08:52→23:00)
--- NOTE | 2020-09-07 13:11 | XR ---
EXAMINATION TYPE: XR lumbar spine 2 or 3V DATE OF EXAM: 09/07/2020 CLINICAL HISTORY: pain TECHNIQUE: Three views of the lumbar spine are submitted. COMPARISON: None. FINDINGS: There are 5 lumbar type vertebral bodies identified. The lumbar spine shows satisfactory alignment w ithout evidence of acute fracture or dislocation. Vertebral body heights are within normal limits. Severe multilevel degenerative disc disease and spondylosis. Endplate sclerosis and moderate facet zhou int arthropathy. The overlying soft tissue appears unremarkable. IMPRESSION: No acute fracture or dislocation is seen in the lumbar spine. ICD 10 NO FRACTURE, INITIAL EVALUATION
--- NOTE | 2020-09-07 13:17 | XR ---
EXAMINATION TYPE: XR Hip Bilateral and AP pelvis DATE OF EXAM: 09/07/2020 CLINICAL HISTORY: pain TECHNIQUE: Single view the pelvis is submitted. Bilateral views of the hips are also submitted. FINDINGS: No evidence for fracture, dislocation or bony lesion. Mild degenerative joint space narrow ing seen bilaterally. SI joints appear symmetric. IMPRESSION: 1. No acute fracture or dislocation seen. ICD 10 NO FRACTURE, INITIAL EVALUATION
--- NOTE | 2020-09-07 15:18 | PN ---
PROGRESS NOTE DATE OF SERVICE: 09/07/2020 I am covering for Dr. Navarro. HISTORY OF PRESENT ILLNESS: This 80-year-old gentleman was admitted with recurrent headache and as well as behavioral changes and severe dementia is being closely monitored at this time. Apparently patient is not letting anybody to take any blood draws according to the staff. Otherwise, patient continues to be confused and according to the who is at the bedside, the patient apparently had a fall and complains of back pain and some difficulty with hip also. No chest pain. No palpitations. The patient is rather sedated at this time. EXAM: The pulse is 73, blood pressure 121/70, respirations 20, temp normal, pulse ox 98% on room air. HEENT: Conjunctivae normal. NECK: No JVD. CARDIOVASCULAR; S1, S2 muffled. RESPIRATORY: Breath sounds diminished in the bases. A few scattered rhonchi and crackles. ABDOMEN: Soft. NERVOUS SYSTEM: Could not be examined completely. LAB STUDIES: CBC within normal limits and glucose 119. UA is noted. Covid 19 is negative. ASSESSMENT: 1. Recurrent headache and change in mental status, possible acute delirium. 2. Dementia with aggressive behavior. 3. Possible back pain per . 4. Abdominal aortic aneurysm history. 5. History of coronary artery disease. 6. Hypertension. 7. Hypertensive heart disease. 8. Hyperlipidemia. 9. History of chronic obstructive pulmonary disease. 10.History of throat cancer. 11.History of colon cancer. 12.Hypothyroidism. 13.Remote history of nicotine dependence. 14.Baseline dementia. 15.Deep vein thrombosis prophylaxis and gastrointestinal prophylaxis. 16.FULL CODE. RECOMMENDATIONS AND DISCUSSION: This 80-year-old gentleman who presented with multiple complex medical issues, we will monitor the patient closely, continue the current management and symptomatic treatment. Otherwise I would also recommend x-rays of the lumbar spine which are performed and showed no fractures and x-ray of the pelvis was also done which showed no acute fractures. Continue to monitor and I recommend follow with Dr. Navarro tomorrow morning. MMODL / IJN: [id number] /
[2020-09-07] MEDS: MIRTAZAPINE 15 MG TAB PO SCH (20:33)
[2020-09-07] MEDS: MELATONIN 5 MG TABLET PO SCH (20:33)
--- NOTE | 2020-09-08 07:53 | P.DS ---
Providers Date of admission: 09/06/20 07:37 Expected date of discharge: 09/08/20 Attending physician: Marek Navarro Consults: 09/04/20 13:00 Consult Physician Routine Consulting Provider: Jonn Mcginnis Consult Reason/Comments: altered mental status Do you want consulting provider notified?: Yes Primary care physician: Marek Navarro [facility] Course: This is an 80-year-old male patient of Dr. Navarro with history of dementia, dyslipidemia, myocardial infarction, dementia, hypothyroidism, colon cancer with recurrence, throat cancer, remote history of tobacco use.patient was presented to the emergency department at [facility] today with increased headache as well as severe mental status changes with aggressiveness and behavioral changes toward the , patient's stated that the patient did not sleep much last night he woke up at around 9:00 in the evening and he was complaining of increased headache at that time and he was wondering the house not sure what he wanted at 3:30 in the morning he became quite agitated and combative she ended up calling EMS patient was brought into the emergency department for evaluation computed tomography scan of the brain did show small vessel disease with brain atrophy without acute infarct or bleed, patient was admitted to the hospital for neurologic evaluation due to mental status changes and behavioral issues. Patient's is not able to take care of him at home at this point and he most likely will need to be placed and exited the facility at this time. 2: patient is laying down in bed he was aggressively earlier with the nursing staff and the nursing unit manager, he is currently sleeping in no apparent distress, there does not appear to be in acute distress, he has not had any breakfast, patient was seen yesterday by neurology recommended B12 1000 g intramuscularly once every day for now, he'll be switched to oral as well as Riboflavin 300 mg orally once every day, monitor the patient very closely, continue with Seroquel 12.5 mg orally twice every day, likely the patient will require placement in a subacute rehabitation. 09/08: Frederic is at bedside. She states that he is not eating very much and only had soup last evening. There is a possibility to Seroquel dosing is too much and we will discontinue the morning dose. Patient's also requesting melatonin be discontinued which we will do. Patient is afebrile, heart rate 71, blood pressure 122/70, pulse ox 94% on room air. Patient will be discharge to [facility] once all arrangements are completed. Discharge diagnoses: 1. Recurrent headache with mental status changes and aggressive behavior in patient with severe Alzheimer dementia. 2. Abdominal aortic aneurysm which is being watched by cardiology. 3. History of coronary artery disease. 4. Hypertension and hypertensive cardiovascular disease. 4. Hyperlipidemia. 5. COPD, stable without exacerbation. 6. History of throat cancer status post radiation. Remission. 7. History of colon cancer status post bowel resection. Remission. 8. Hypothyroidism. 9. Remote history of tobacco use. 10. Worsening dementia of Alzheimer's type with behavioral disturbances. Discharge Plan: [facility]. Impression and plan of care have been directed as dictated by the signing physician. Sofia Goodwin nurse practitioner acting as scribe for signing physician. Patient Condition at Discharge: Fair Plan - Discharge Summary Discharge Rx Participant: No New Discharge Prescriptions: New QUEtiapine [SEROquel] 12.5 mg PO HS tab Acetaminophen Tab [Tylenol] 650 mg PO Q6HR PRN tab PRN Reason: Fever And/ Or Pain Cyanocobalamin [Vitamin B-12 Injection] 1,000 mcg IM DAILY vial Continue Levothyroxine Sodium [Synthroid] 50 mcg PO DAILY atenoloL [Tenormin] 25 mg PO BID Nitroglycerin Sl Tabs [Nitrostat] 0.4 mg SUBLINGUAL Q5M PRN #25 tab PRN Reason: Chest Pain Mirtazapine 7.5 mg PO HS Multivitamins, Thera [Multivitamin (formulary)] 1 tab PO DAILY Aspirin 325 mg PO DAILY Albuterol Sulfate [Ventolin HFA] 2 puff INHALATION RT-QID PRN PRN Reason: Shortness Of Breath Discharge Medication List Levothyroxine Sodium [Synthroid] 50 mcg PO DAILY 05/31/19 [History] atenoloL [Tenormin] 25 mg PO BID 01/07/20 [History] Nitroglycerin Sl Tabs [Nitrostat] 0.4 mg SUBLINGUAL Q5M PRN #25 tab 01/08/20 [Rx] Mirtazapine 7.5 mg PO HS 03/18/20 [History] Multivitamins, Thera [Multivitamin (formulary)] 1 tab PO DAILY 03/18/20 [History] Albuterol Sulfate [Ventolin HFA] 2 puff INHALATION RT-QID PRN 09/04/20 [History] Aspirin 325 mg PO DAILY 09/04/20 [History] Acetaminophen Tab [Tylenol] 650 mg PO Q6HR PRN tab 09/08/20 [Rx] Cyanocobalamin [Vitamin B-12 Injection] 1,000 mcg IM DAILY vial 09/08/20 [Rx] QUEtiapine [SEROquel] 12.5 mg PO HS tab 09/08/20 [Rx] Follow up Appointment(s)/Referral(s): None,Stated [REFERRING] - 1-2 days Marek Navarro MD [Primary Care Provider] - 1 Week (at [facility]) Activity/Diet/Wound Care/Special Instructions: Spouse would like pt to have influenza vaccine prior to discharge. Discharge Disposition: TRANSFER TO SNF/ECF
[2020-09-08] MEDS: HEPARIN SODIUM,PORCINE 5,000 UNIT/ML 1 ML VIAL SQ SCH ×3 (10:04→20:59)
[2020-09-08] MEDS: CYANOCOBALAMIN 1,000 MCG/ML 1 ML VIAL IM SCH (10:11)
[2020-09-08] MEDS: MULTIVITAMINS, THERA 1 EACH TAB PO SCH (10:15)
[2020-09-08] MEDS: atenoloL 25 MG TAB PO SCH ×2 (10:15→20:55)
[2020-09-08] MEDS: LEVOTHYROXINE 50 MCG TAB PO SCH (10:16)
[2020-09-08] MEDS: ASPIRIN 325 MG TAB PO SCH (10:16)
[2020-09-08] MEDS: QUEtiapine 25 MG TAB PO SCH (10:16)
[2020-09-08] MEDS: PANTOPRAZOLE 40 MG TABLET PO SCH (10:16)
[2020-09-08] MEDS: ACETAMINOPHEN TAB 325 MG TAB PO PRN (13:38)
[2020-09-08] MEDS: MIRTAZAPINE 15 MG TAB PO SCH (20:56)
[2020-09-08] MEDS: MELATONIN 5 MG TABLET PO SCH (20:56)
--- NOTE | 2020-09-08 21:37 | P.PN ---
Subjective Progress Note Date: 09/08/20 Patient was seen for a follow-up. Patient was initially seen by Dr. Santhosh Mcginnis in consultation. Please refer to his note for detail. Patient has advanced dementia, came with altered mental status. Patient's was also present. She states that when he does some exertion, complains of dizziness, headaches. He takes Tylenol No. 4. Patient continues to have significant dementia, and the last one hour has tried to make the bed 4 times. Very restless. Patient offers no complaints. Objective - Vital Signs Vital signs: Vital Signs Temp 98.0 F 09/07/20 14:00 Pulse 71 09/07/20 14:00 Resp 16 09/07/20 18:50 BP 122/70 09/07/20 14:00 Pulse Ox 94 L 09/07/20 14:00 Intake & Output 09/08/20 09/08/20 09/09/20 06:59 18:59 06:59 Intake Total 100 Balance 100 Intake: Oral 100 Other: # Voids 1 - Exam Patient is alert and awake. He is very hyperactive, trying to make the bed, then 40 feet, then makes it again. Very confused. He did not elect to answer to any questions. But offer no complaints. Per , sometimes complains of headache. Not complaining at this time. Patient's gait is normal. Muscle strength appears normal. Further cranial nerves testing deferred. - Labs CBC & Chem 7: 09/04/20 12:08 09/04/20 12:08 Assessment and Plan Assessment: * Advanced dementia, with behavioral disturbance. * Recurrent headaches, possible tension headache. * Possible delirium. * History of throat cancer * History of lung cancer Plan: * Patient's B12 is 855, RBC folate normal 468, TFTs normal. * Consider Aricept. Suggest patient follow up with neurologist as an outpatient for management of dementia. * Awaiting placement. * Neurology will sign off.
[2020-09-09] MEDS: LEVOTHYROXINE 50 MCG TAB PO SCH (05:15)
[2020-09-09 05:23] VITALS: BP 165/97; PULSE 79; RESP 16; TEMP 98
[2020-09-09] MEDS: HEPARIN SODIUM,PORCINE 5,000 UNIT/ML 1 ML VIAL SQ SCH (07:00)
[2020-09-09] MEDS: CYANOCOBALAMIN 1,000 MCG/ML 1 ML VIAL IM SCH (07:01)
[2020-09-09] MEDS: PANTOPRAZOLE 40 MG TABLET PO SCH (09:06)
[2020-09-09] MEDS: ASPIRIN 325 MG TAB PO SCH (09:06)
[2020-09-09] MEDS: atenoloL 25 MG TAB PO SCH (09:06)
[2020-09-09] MEDS: MULTIVITAMINS, THERA 1 EACH TAB PO SCH (09:07)
--- NOTE | 2020-09-09 12:16 | P.PN ---
Subjective Progress Note Date: 09/08/20 This is an 80-year-old male patient of Dr. Navarro with history of dementia, dyslipidemia, myocardial infarction, dementia, hypothyroidism, colon cancer with recurrence, throat cancer, remote history of tobacco use.patient was presented to the emergency department at [facility] today with increased headache as well as severe mental status changes with aggressiveness and behavioral changes toward the , patient's stated that the patient did not sleep much last night he woke up at around 9:00 in the evening and he was complaining of increased headache at that time and he was wondering the house not sure what he wanted at 3:30 in the morning he became quite agitated and combative she e nded up calling EMS patient was brought into the emergency department for evaluation computed tomography scan of the brain did show small vessel disease with brain atrophy without acute infarct or bleed, patient was admitted to the hospital for neurologic evaluation due to mental status changes and behavioral issues. Patient's is not able to take care of him at home at this point and he most likely will need to be placed and exited the facility at this time. 09/05: patient is laying down in bed he was aggressively earlier with the nursing staff and the nursing teacher, he is currently sleeping in no apparent distress, there does not appear to be in acute distress, he has not had any breakfast, patient was seen yesterday by neurology recommended B12 1000 g intramuscularly once every day for now, he'll be switched to oral as well as Riboflavin 300 mg orally once every day, monitor the patient very closely, continue with Seroquel 12.5 mg orally twice every day, likely the patient will require placement in a subacute rehabitation. 09/08: Frederic is at bedside. She states that he is not eating very much and only had soup last evening. There is a possibility to Seroquel dosing is too much and we will discontinue the morning dose. Patient's also requesting melatonin be discontinued which we will do. Patient is afebrile, heart rate 71, blood pressure 122/70, pulse ox 94% on room air. Patient will be discharge to rehab once all arrangements are completed. Objective - Vital Signs Vital signs: Vital Signs Temp 98.0 F 09/07/20 14:00 Pulse 79 09/08/20 20:00 Resp 16 09/08/20 20:00 BP 165/97 09/08/20 20:00 Pulse Ox 94 L 09/07/20 14:00 Intake & Output 09/08/20 09/09/20 09/09/20 18:59 06:59 18:59 Other: Voiding Method Toilet Urinal Diaper # Voids 1 2 - Exam Review of Systems Constitutional: Reports anorexia, Reports chronic headaches, Reports chronic pain, Reports fatigue, Reports weakness, Reports weight loss Eyes: bilateral blurred vision, bilateral decreased vision, denies bulging eye Cardiovascular: Reports decreased exercise tolerance, Reports dyspnea on exertion, Reports shortness of breath, Denies chest pain, Denies leg edema, Denies rapid heart beat, Denies syncope Respiratory: Reports cough, Reports wheezing, Denies congestion, Denies cough with sputum, Denies home oxygen, Denies pain, Denies sleep apnea, Denies snoring Gastrointestinal: Reports loss of appetite, Denies abdominal pain, Denies bloating, Denies BRBPR, Denies dyspepsia, Denies excessive gas, Denies indigestion, Denies melena, Denies nausea, Denies vomiting Genitourinary: Reports nocturia, Reports urinary frequency, Denies dysuria Musculoskeletal: Reports gait dysfunction Musculoskeletal: absent: ankle pain, ankle stiffness, ankle swelling, elbow pain, elbow stiffness, elbow swelling, foot pain, foot stiffness, foot swelling, hand pain, hand stiffness, hand swelling, hip pain, hip stiffness, hip swelling, knee pain, knee stiffness, knee swelling, shoulder pain, shoulder stiffness, shoulder swelling, wrist pain, wrist stiffness, wrist swelling Integumentary: Denies pruritus, Denies rash Neurological: Reports balance difficulties, Reports confusion, Reports headaches, Reports memory loss, Reports visual changes Psychiatric: Reports change in appetite, Reports change in sleep habits, Reports insomnia, Reports irritability, Reports memory loss, Reports sleep disturbances, Denies sadness/tearfulness, Denies suicidal ideation Endocrine: Denies fatigue, Denies weight change Physical examination: GEN: An 80-year-old male. He is in bed and appears to be comfortable. No acute distress. No respiratory distress. HEENT: Head is atraumatic, normocephalic, pupils were equal round reactive to light and accommodation, extraocular muscle movement were intact. Neck: Supple, no JVD, decreased carotid upstroke bilaterally. Chest: Decreased breath sound at bases, few rhonchi, no expiratory wheezes, no chest wall tenderness, no intercostal retractions. Heart: First heart sound is depressed, second heart sound is normal, there is systolic ejection murmur 2/6 located in the left sternal border. Abdomen: Soft, nontender, nondistended, positive bowel sounds. Extremities: No edema, no calf tenderness, dorsalis pedis +1 bilaterally. Neurologic examination: Patient is awake alert and oriented 1, baseline dementia follow simple commands only, patient moves all his extremities, muscle power 4 out of 5 in upper and lower extremities bilaterally, there is no focal weakness or lateralization there is no pronator drift. - Labs CBC & Chem 7: 09/04/20 12:08 09/04/20 12:08 Assessment and Plan Plan: 1. Recurrent headache with mental status changes and aggressive behavior in patient with severe Alzheimer dementia.patient was started on Riboflavin 300 mg orally once every day along with B12 1000 g intramuscularly daily. 2. Abdominal aortic aneurysm which is being watched by cardiology. 3. History of coronary artery disease. we will continue [id number] mg orally once every day, atenolol 25 mg orally twice every day. 4. Hypertension and hypertensive cardiovascular disease. Continue atenolol 25 mg orally twice every day. 4. Hyperlipidemia. Continue Lipitor 20 mg orally once every day. 5. COPD, stable without exacerbation. Stable.we'll continue with albuterol HFA 2 puffs inhalation every 4 hours as needed. 6. History of throat cancer status post radiation. Remission. 7. History of colon cancer status post bowel resection. Remission. 8. Hypothyroidism. Continue levothyroxine 50 mg daily. 9. Remote history of tobacco use. Stable. 10. Worsening dementia of Alzheimer's typewith behavioral disturbances. Seroquel will be discontinued 11. DVT prophylaxis. Heparin 5000 units subcutaneously every 8 hours. 12. GI prophylaxis. Continue patient Protonix 40 mg orally once every day. 13. Discharge Plan: Subacute rehab once arrangements are completed Impression and plan of care have been directed as dictated by the signing physician. Sofia Goodwin nurse practitioner acting as scribe for signing physician.
== END 2020-09-09 13:16 | DRG 56 ==
LOC: EC 11:34 → 4SSUR 12:59 → OBSVTOIN 09-06 07:37
PROVIDERS: ADMIT Internal Medicine; ATTEND Internal Medicine
DX: G30.9 Alzheimer's disease, unspecified (principal); G93.41 Metabolic encephalopathy; F02.81 Dementia in other diseases classified elsewhere, unspecified severity, with behavioral disturbance; Z68.1 Body mass index [BMI] 19.9 or less, adult; G43.909 Migraine, unspecified, not intractable, without status migrainosus; E78.5 Hyperlipidemia, unspecified; I11.9 Hypertensive heart disease without heart failure; I25.10 Atherosclerotic heart disease of native coronary artery without angina pectoris; I25.2 Old myocardial infarction; I71.4 Abdominal aortic aneurysm, without rupture; J44.9 Chronic obstructive pulmonary disease, unspecified; W19.XXXA Unspecified fall, initial encounter; I73.9 Peripheral vascular disease, unspecified; M54.9 Dorsalgia, unspecified; Z79.82 Long term (current) use of aspirin; Z79.890 Hormone replacement therapy; Z79.899 Other long term (current) drug therapy; E03.9 Hypothyroidism, unspecified; Z82.49 Family history of ischemic heart disease and other diseases of the circulatory system; Z82.5 Family history of asthma and other chronic lower respiratory diseases; Z85.038 Personal history of other malignant neoplasm of large intestine; Z20.822 Contact with and (suspected) exposure to COVID-19; Z85.118 Personal history of other malignant neoplasm of bronchus and lung; Z85.21 Personal history of malignant neoplasm of larynx; R53.83 Other fatigue; R91.8 Other nonspecific abnormal finding of lung field; R63.4 Abnormal weight loss; G89.29 Other chronic pain; R26.9 Unspecified abnormalities of gait and mobility; Z85.819 Personal history of malignant neoplasm of unspecified site of lip, oral cavity, and pharynx; Z86.73 Personal history of transient ischemic attack (TIA), and cerebral infarction without residual deficits; Z87.891 Personal history of nicotine dependence; Z90.49 Acquired absence of other specified parts of digestive tract; Z92.3 Personal history of irradiation; Z86.010 Personal history of colon polyps; Z80.8 Family history of malignant neoplasm of other organs or systems; Z87.01 Personal history of pneumonia (recurrent)
CPT/HCPCS: 36415; 70450; 72100; 73521; 80048; 81003; 82607; 82747; 84443; 85025; 85610; 85730; 87635; 93005; 96372; 99285

== ENCOUNTER 2021-01-17 11:59 | Emergency (ER) | payer MEDICARE ==
[2021-01-17 12:25] VITALS: BP 130/85; PULSE 85; RESP 16; TEMP 97.3
[2021-01-17] MEDS ORDERED: SODIUM CHLORIDE 0.9% 1,000 ML IV STA ×2 (12:53)
--- NOTE | 2021-01-17 12:57 | ED ---
Weakness HPI - General Chief complaint: Weakness Stated complaint: not eating, lethargic Time Seen by Provider: 01/17/21 12:20 Source: family, RN notes reviewed, old records reviewed Mode of arrival: wheelchair Limitations: no limitations - History of Present Illness Initial comments: This is a 80-year-old male with a history dementia colon cancer who was brought in by family because of failure to thrive he's not eating or drinking sleeping all the time. He's had weight loss. No falls no other reports of fevers chills or sweats he is only urinated once in the last day and a half a state. He has been in the past in rehab left that in September he's had a declining since then. MD Complaint: generalized weakness - Related Data Home Medications Medication Instructions Recorded Confirmed Levothyroxine Sodium [Synthroid] 50 mcg PO DAILY 05/31/19 09/04/20 atenoloL [Tenormin] 25 mg PO BID 01/07/20 09/04/20 Mirtazapine 7.5 mg PO HS 03/18/20 09/04/20 Multivitamins, Thera [Multivitamin 1 tab PO DAILY 03/18/20 09/04/20 (formulary)] Albuterol Sulfate [Ventolin HFA] 2 puff INHALATION RT-QID PRN 09/04/20 09/04/20 Aspirin 325 mg PO DAILY 09/04/20 09/04/20 Previous Rx's Medication Instructions Recorded Nitroglycerin Sl Tabs [Nitrostat] 0.4 mg SUBLINGUAL Q5M PRN #25 tab 01/08/20 Acetaminophen Tab [Tylenol] 650 mg PO Q6HR PRN tab 09/08/20 Cyanocobalamin [Vitamin B-12 1,000 mcg IM DAILY vial 09/08/20 Injection] Allergies Allergy/AdvReac Type Severity Reaction Status Date / Time No Known Allergies Allergy Verified 01/17/21 12:26 Review of Systems ROS Statement: Those systems with pertinent positive or pertinent negative responses have been documented in the HPI. ROS Other: All systems not noted in ROS Statement are negative. Past Medical History Past Medical History: Coronary Artery Disease (CAD), Cancer, Chest Pain / Angina, COPD, Dementia, Hyperlipidemia, Hypertension, Memory Impairment, Pneumonia, Respiratory Disorder, Thyroid Disorder, Vascular Disorder Additional Past Medical History / Comment(s): Chronic type B aortic dissection, colon cancer twice with surgery, laryngeal cancer with surgery/radiation, stable pulmonary nodules, SOB with minimal exertion, hypothyroid. History of Any Multi-Drug Resistant Organisms: None Reported Past Surgical History: Appendectomy, Bowel Resection, Heart Catheterization Additional Past Surgical History / Comment(s): Bowel resection x2, surgery for laryngeal cancer, colonoscopies/polypectomy, hemorrhoidectomy. Past Anesthesia/Blood Transfusion Reactions: No Reported Reaction Past Psychological History: No Psychological Hx Reported Smoking Status: Former smoker Past Alcohol Use History: None Reported Past Drug Use History: None Reported - Past Family History Brother(s) Family Medical History: Cancer Additional Family Medical History / Comment(s): The patient has 2 brothers and one from bone cancer with metastatic disease, one from COPD. Father Additional Family Medical History / Comment(s): Father at age 82 from myocardial infarction. Mother Family Medical History: COPD Additional Family Medical History / Comment(s): Mother at age 70 from COPD. Sister(s) Family Medical History: COPD Additional Family Medical History / Comment(s): Patient has 1 sister that from COPD. Patient has one son that - he was hit by a truck. Patient had a total of 2 boys and 2 girls. General Exam - General Exam Comments Initial Comments: This is a well-developed emaciated appearing male who is awake still respond demonstrating the stigmata of dementia Limitations: no limitations General appearance: alert, in no apparent distress Head exam: Present: atraumatic, normocephalic, normal inspection Eye exam: Present: normal appearance, PERRL, EOMI. Absent: scleral icterus, conjunctival injection, periorbital swelling ENT exam: Present: mucous membranes dry Neck exam: Present: normal inspection. Absent: tenderness, meningismus, lymph adenopathy Respiratory exam: Present: normal lung sounds bilaterally. Absent: respiratory distress, wheezes, rales, rhonchi, stridor Cardiovascular Exam: Present: regular rate, normal rhythm, normal heart sounds. Absent: systolic murmur, diastolic murmur, rubs, gallop, clicks GI/Abdominal exam: Present: soft, normal bowel sounds. Absent: distended, tenderness, guarding, rebound, rigid Extremities exam: Present: full ROM, normal capillary refill, other (Demonstrating wasting). Absent: tenderness, pedal edema, joint swelling, calf tenderness Back exam: Present: normal inspection Neurological exam: Present: alert, oriented X3, CN II-XII intact Psychiatric exam: Present: flat affect Skin exam: Present: warm, dry, intact, normal color. Absent: rash Course Vital Signs 01/17/21 12:20 Temperature 97.3 F L Pulse Rate 85 Respiratory 16 Rate Blood Pressure 130/85 O2 Sat by Pulse 96 Oximetry Medical Decision Making - Medical Decision Making I did discuss findings the patient family as well as with Dr. Navarro. Patient be discharged with follow-up in 2-3 days the office. The family is in agreement with this. - Lab Data Result diagrams: 01/17/21 14:15 01/17/21 14:15 Lab Results 01/17/21 01/17/21 01/17/21 Range/Units 14:15 14:15 14:15 WBC 6.8 (3.8-10.6) k/uL RBC 5.17 (4.30-5.90) m/uL Hgb 15.5 (13.0-17.5) gm/dL Hct 46.4 (39.0-53.0) % MCV 89.7 (80.0-100.0) fL MCH 29.9 (25.0-35.0) pg MCHC 33.4 (31.0-37.0) g/dL RDW 13.0 (11.5-15.5) % Plt Count 241 (150-450) k/uL MPV 6.9 Neutrophils % 68 % Lymphocytes % 19 % Monocytes % 6 % Eosinophils % 4 % Basophils % 1 % Neutrophils # 4.6 (1.3-7.7) k/uL Lymphocytes # 1.3 (1.0-4.8) k/uL Monocytes # 0.4 (0-1.0) k/uL Eosinophils # 0.3 (0-0.7) k/uL Basophils # 0.0 (0-0.2) k/uL Sodium 143 (137-145) mmol/L Potassium 4.6 (3.5-5.1) mmol/L Chloride 104 (98-107) mmol/L Carbon Dioxide 32 H (22-30) mmol/L Anion Gap 7 mmol/L BUN 18 (9-20) mg/dL Creatinine 0.89 (0.66-1.25) mg/dL Est GFR (CKD-EPI)AfAm >90 (>60 ml/min/1.73 sqM) Est GFR (CKD-EPI)NonAf 80 (>60 ml/min/1.73 sqM) Glucose 98 (74-99) mg/dL Calcium 9.4 (8.4-10.2) mg/dL Magnesium 2.1 (1.6-2.3) mg/dL Total Bilirubin 0.9 (0.2-1.3) mg/dL AST 25 (17-59) U/L ALT 9 (4-49) U/L Alkaline Phosphatase 76 (38-126) U/L Creatine Kinase 28 L (55-170) U/L Troponin I <0.012 (0.000-0.034) ng/mL Total Protein 6.7 (6.3-8.2) g/dL Albumin 4.1 (3.5-5.0) g/dL Lipase 85 (23-300) U/L TSH 1.860 (0.465-4.680) mIU/L - Radiology Data Radiology results: report reviewed (Imaging reviewed no acute findings.), image reviewed Disposition Clinical Impression: Dementia, Dehydration Disposition: HOME SELF-CARE Condition: Good Instructions (If sedation given, give patient instructions): Dementia (ED), Dehydration (ED) Is patient prescribed a controlled substance at d/c from ED?: No Referrals: Marek Navarro MD [Primary Care Provider] - 1-2 days
--- NOTE | 2021-01-17 13:29 | XR ---
EXAMINATION TYPE: XR chest 2V DATE OF EXAM: 01/17/2021 COMPARISON: Chest x-ray March 18, 2020 HISTORY: Weakness. TECHNIQUE: Frontal and lateral views of the chest are obtained. FINDINGS: There is chronic emphysematous change without suspicious focal air space opacity, pleural effusion, or pneumothorax seen. The cardiac silhouette size is stable and within normal limits with atherosclerotic change aortic knob. The osseous structures are demineralized. IMPRESSION: Chronic emphysematous change without acute pulmonary process.
--- NOTE | 2021-01-17 13:31 | CT ---
EXAMINATION TYPE: CT brain wo con DATE OF EXAM: 01/17/2021 HISTORY: altered mental status CT DLP: 2195.4 mGycm. Automated Exposure Control for Dose Reduction was Utilized. TECHNIQUE: CT scan of the head is performed without contrast. COMPARISON: CT brain September 04, 2020 and older studies. FINDINGS: There is no acute intracranial hemorrhage or midline shift identified. There is moderate to advanced diffuse ventricular and sulcal prominence consistent with diffuse cerebral atrophy redemo nstrated. Brewster-white matter differentiation fairly well maintained. The globes are intact and the vi sualized sinuses are clear. IMPRESSION: No acute intracranial hemorrhage or midline shift. There is moderate to severe diffuse cerebral atrophy redemonstrated. No significant change from prior studies.
[2021-01-17 14:23] LABS: Basophils % (A) 1 %; Eosinophils # (A) 0.3 k/uL (0-0.7); Eosinophils % (A) 4 %; HCT 46.4 % (39.0-53.0); HGB 15.5 gm/dL (13.0-17.5); Lymphocytes # (A) 1.3 k/uL (1.0-4.8); Lymphocytes % (A) 19 %; MCH 29.9 pg (25.0-35.0); MCHC 33.4 g/dL (31.0-37.0); MCV 89.7 fL (80.0-100.0); Mean Platelet Volume 6.9; Monocytes # (A) 0.4 k/uL (0-1.0); Monocytes % (A) 6 %; Neutrophils # (A) 4.6 k/uL (1.3-7.7); Neutrophils % (A) 68 %; Platelet Count 241 k/uL (150-450); RBC 5.17 m/uL (4.30-5.90); WBC 6.8 k/uL (3.8-10.6)
[2021-01-17 14:34] LABS: ALT 9 U/L (4-49); AST 25 U/L (17-59); African American GFR (CKD) >90 (>60 ml/min/1.73 sqM); Albumin 4.1 g/dL (3.5-5.0); Alkaline Phosphatase 76 U/L (38-126); Anion Gap 7 mmol/L; Blood Urea Nitrogen 18 mg/dL (9-20); Calcium 9.4 mg/dL (8.4-10.2); Carbon Dioxide 32 mmol/L (22-30); Chloride 104 mmol/L (98-107); Creatine Kinase 28 U/L (55-170); Glucose 98 mg/dL (74-99); Lipase 85 U/L (23-300); Magnesium 2.1 mg/dL (1.6-2.3); Non-African American GFR(CKD) 80 (>60 ml/min/1.73 sqM); Potassium 4.6 mmol/L (3.5-5.1); Sodium 143 mmol/L (137-145); Total Bilirubin 0.9 mg/dL (0.2-1.3); Total Protein 6.7 g/dL (6.3-8.2)
== END 2021-01-17 16:06 | disposition home or self-care (01) ==
LOC: EC 11:59
DX: E86.0 Dehydration (principal); F03.90 Unspecified dementia, unspecified severity, without behavioral disturbance, psychotic disturbance, mood disturbance, and anxiety; I10 Essential (primary) hypertension; E78.5 Hyperlipidemia, unspecified; E03.9 Hypothyroidism, unspecified; J44.9 Chronic obstructive pulmonary disease, unspecified; I25.10 Atherosclerotic heart disease of native coronary artery without angina pectoris; Z79.82 Long term (current) use of aspirin; Z79.890 Hormone replacement therapy; Z79.899 Other long term (current) drug therapy; Z87.891 Personal history of nicotine dependence; Z85.038 Personal history of other malignant neoplasm of large intestine; Z85.21 Personal history of malignant neoplasm of larynx; Z82.49 Family history of ischemic heart disease and other diseases of the circulatory system
CPT/HCPCS: 70450; 71046; 80053; 82550; 83690; 83735; 84443; 84484; 85025; 96360; 96361; 99285

== ENCOUNTER 2021-05-14 11:23 | Emergency (ER) | payer MEDICARE ==
[2021-05-14 12:01] VITALS: PULSE 81; TEMP 99.3
[2021-05-14] MEDS ORDERED: SODIUM CHLORIDE 0.9% 500 ML 500 ML IV STA (13:20)
--- NOTE | 2021-05-14 13:25 | ED ---
General Adult HPI - General Chief complaint: Weakness Stated complaint: SOB, headache, abd pain Time Seen by Provider: 05/14/21 12:00 Source: family, RN notes reviewed, old records reviewed Mode of arrival: wheelchair Limitations: no limitations - History of Present Illness Initial comments: This is a 81-year-old male who presents emergency Department complaining of family states he woke up and was extremely weak and was a was unable to stand at that point time he had his hands on his head down on his chest and then on his lower abdomen. Family assumes that he was having pain in those areas but patient is unable to communicate secondary to his severe dementia. Patient has not had a recent fever patient has had no recent vomiting or diarrhea. Patient has had no cough or difficulty breathing according to family. Patient had symptoms resolved in about 20 minutes and patient according to family is been acting normal ever since - Related Data Home Medications Medication Instructions Recorded Confirmed Levothyroxine Sodium [Synthroid] 50 mcg PO DAILY 05/31/19 05/14/21 atenoloL [Tenormin] 25 mg PO BID 01/07/20 05/14/21 Mirtazapine 15 mg PO HS 03/18/20 05/14/21 Aspirin 325 mg PO DAILY 09/04/20 05/14/21 Multivit-Min/FA/Lycopen/Lutein 1 tab PO DAILY 05/14/21 05/14/21 [Centrum Silver Men Tablet] Previous Rx's Medication Instructions Recorded Nitroglycerin Sl Tabs [Nitrostat] 0.4 mg SUBLINGUAL Q5M PRN #25 tab 01/08/20 Allergies Allergy/AdvReac Type Severity Reaction Status Date / Time No Known Allergies Allergy Verified 05/14/21 13:39 Review of Systems ROS Statement: Those systems with pertinent positive or pertinent negative responses have been documented in the HPI. ROS Other: All systems not noted in ROS Statement are negative. Past Medical History Past Medical History: Coronary Artery Disease (CAD), Cancer, Chest Pain / Angina, COPD, Dementia, Hyperlipidemia, Hypertension, Memory Impairment, Pneu monia, Respiratory Disorder, Thyroid Disorder, Vascular Disorder Additional Past Medical History / Comment(s): Chronic type B aortic dissection, colon cancer twice with surgery, laryngeal cancer with surgery/radiation, stable pulmonary nodules, SOB with minimal exertion, hypothyroid. History of Any Multi-Drug Resistant Organisms: None Reported Past Surgical History: Appendectomy, Bowel Resection, Heart Catheterization Additional Past Surgical History / Comment(s): Bowel resection x2, surgery for laryngeal cancer, colonoscopies/polypectomy, hemorrhoidectomy. Past Anesthesia/Blood Transfusion Reactions: No Reported Reaction Past Psychological History: No Psychological Hx Reported Smoking Status: Former smoker Past Alcohol Use History: None Reported Past Drug Use History: None Reported - Past Family History Brother(s) Family Medical History: Cancer Additional Family Medical History / Comment(s): The patient has 2 brothers and one from bone cancer with metastatic disease, one from COPD. Father Additional Family Medical History / Comment(s): Father at age 82 from myocardial infarction. Mother Family Medical History: COPD Additional Family Medical History / Comment(s): Mother at age 70 from COPD. Sister(s) Family Medical History: COPD Additional Family Medical History / Comment(s): Patient has 1 sister that from COPD. Patient has one son that - he was hit by a truck. Patient had a total of 2 boys and 2 girls. General Exam - General Exam Comments Initial Comments: GENERAL: Patient is well-developed and well-nourished. Patient is nontoxic and well- hydrated and is in no acute distress. ENT: Neck is soft and supple. No significant lymphadenopathy is noted. Oropharynx is clear. Moist mucous membranes. Neck has full range of motion without eliciting any pain. EYES: The sclera were anicteric and conjunctiva were pink and moist. Extraocular movements were intact and pupils were equal round and reactive to light. Eyelids were unremarkable. PULMONARY: Unlabored respirations. Good breath sounds bilaterally. No audible rales rhonchi or wheezing was noted. CARDIOVASCULAR: There is a regular rate and rhythm without any murmurs gallops or rubs. ABDOMEN: Soft and nontender with normal bowel sounds. No palpable organomegaly was noted. There is no palpable pulsatile mass. SKIN: Skin is clear with no lesions or rashes and otherwise unremarkable. NEUROLOGIC: Patient is alert and oriented 0 and family states is his baseline. Cranial nerves II through XII are grossly intact. Patient moves all 4 extremities diff icult to assess strength because he does not follow commands. Patient is not speaking so I cannot assess his speech. MUSCULOSKELETAL: Normal extremities with adequate strength and full range of motion. No lower extremity swelling or edema. No calf tenderness. LYMPHATICS: No significant lymphadenopathy is noted PSYCHIATRIC: Unable to assess Limitations: no limitations Course Vital Signs 05/14/21 11:55 Temperature 99.3 F Pulse Rate 81 Respiratory 18 Rate Blood Pressure 146/88 O2 Sat by Pulse 96 Oximetry Medical Decision Making - Medical Decision Making EKG shows normal sinus rhythm at 66 bpm VA interval is 138 QRS is 96 QT interval 410 QTC is 429. Patient's EKG shows no ST segment elevation or depression Chest x-ray shows no acute normalities. I went back in and reevaluated the patient family states he's been at his baseline ever since he's been here and he's had no symptoms of any sort. Family did not want the patient to stay and I was in agreement with discharge the patient home. - Lab Data Result diagrams: 05/14/21 13:24 05/14/21 13:24 Lab Results 05/14/21 05/14/21 05/14/21 Range/Units 13:24 13:24 13:24 WBC 7.0 (3.8-10.6) k/uL RBC 5.18 (4.30-5.90) m/uL Hgb 15.9 (13.0-17.5) gm/dL Hct 48.1 (39.0-53.0) % MCV 93.0 (80.0-100.0) fL MCH 30.7 (25.0-35.0) pg MCHC 33.0 (31.0-37.0) g/dL RDW 12.4 (11.5-15.5) % Plt Count 228 (150-450) k/uL MPV 7.4 Neutrophils % 66 % Lymphocytes % 21 % Monocytes % 6 % Eosinophils % 4 % Basophils % 1 % Neutrophils # 4.6 (1.3-7.7) k/uL Lymphocytes # 1.5 (1.0-4.8) k/uL Monocytes # 0.4 (0-1.0) k/uL Eosinophils # 0.3 (0-0.7) k/uL Basophils # 0.0 (0-0.2) k/uL PT 11.2 (9.0-12.0) sec INR 1.1 (<1.2) APTT 24.6 (22.0-30.0) sec Sodium (137-145) mmol/L Potassium (3.5-5.1) mmol/L Chloride (98-107) mmol/L Carbon Dioxide (22-30) mmol/L Anion Gap mmol/L BUN (9-20) mg/dL Creatinine (0.66-1.25) mg/dL Est GFR (CKD-EPI)AfAm (>60 ml/min/1.73 sqM) Est GFR (CKD-EPI)NonAf (>60 ml/min/1.73 sqM) Glucose (74-99) mg/dL Plasma Lactic Acid Charles (0.7-2.0) mmol/L Calcium (8.4-10.2) mg/dL Magnesium (1.6-2.3) mg/dL Total Bilirubin (0.2-1.3) mg/dL AST (17-59) U/L ALT (4-49) U/L Alkaline Phosphatase (38-126) U/L Troponin I (0.000-0.034) ng/mL Total Protein (6.3-8.2) g/dL Albumin (3.5-5.0) g/dL Urine Color Light Yellow Urine Appearance Clear (Clear) Urine pH 6.5 (5.0-8.0) Ur Specific [place] 1.004 (1.001-1.035) Urine Protein Negative (Negative) Urine Glucose (UA) Negative (Negative) Urine Ketones Negative (Negative) Urine Blood Negative (Negative) Urine Nitrite Negative (Negative) Urine Bilirubin Negative (Negative) Urine Urobilinogen <2.0 (<2.0) mg/dL Ur Leukocyte Esterase Small H (Negative) Urine RBC <1 (0-5) /hpf Urine WBC 4 (0-5) /hpf Coronavirus (PCR) (Not Detectd) 05/14/21 05/14/21 05/14/21 Range/Units 13:24 13:24 13:24 WBC (3.8-10.6) k/uL RBC (4.30-5.90) m/uL Hgb (13.0-17.5) gm/dL Hct (39.0-53.0) % MCV (80.0-100.0) fL MCH (25.0-35.0) pg MCHC (31.0-37.0) g/dL RDW (11.5-15.5) % Plt Count (150-450) k/uL MPV Neutrophils % % Lymphocytes % % Monocytes % % Eosinophils % % Basophils % % Neutrophils # (1.3-7.7) k/uL Lymphocytes # (1.0-4.8) k/uL Monocytes # (0-1.0) k/uL Eosinophils # (0-0.7) k/uL Basophils # (0-0.2) k/uL PT (9.0-12.0) sec INR (<1.2) APTT (22.0-30.0) sec Sodium 142 (137-145) mmol/L Potassium 4.3 (3.5-5.1) mmol/L Chloride 104 (98-107) mmol/L Carbon Dioxide 27 (22-30) mmol/L Anion Gap 11 mmol/L BUN 12 (9-20) mg/dL Creatinine 0.84 (0.66-1.25) mg/dL Est GFR (CKD-EPI)AfAm >90 (>60 ml/min/1.73 sqM) Est GFR (CKD-EPI)NonAf 82 (>60 ml/min/1.73 sqM) Glucose 98 (74-99) mg/dL Plasma Lactic Acid Charles 1.6 (0.7-2.0) mmol/L Calcium 9.8 (8.4-10.2) mg/dL Magnesium 2.1 (1.6-2.3) mg/dL Total Bilirubin 0.8 (0.2-1.3) mg/dL AST 27 (17-59) U/L ALT 11 (4-49) U/L Alkaline Phosphatase 85 (38-126) U/L Troponin I <0.012 (0.000-0.034) ng/mL Total Protein 6.9 (6.3-8.2) g/dL Albumin 4.1 (3.5-5.0) g/dL Urine Color Urine Appearance (Clear) Urine pH (5.0-8.0) Ur Specific [place] (1.001-1.035) Urine Protein (Negative) Urine Glucose (UA) (Negative) Urine Ketones (Negative) Urine Blood (Negative) Urine Nitrite (Negative) Urine Bilirubin (Negative) Urine Urobilinogen (<2.0) mg/dL Ur Leukocyte Esterase (Negative) Urine RBC (0-5) /hpf Urine WBC (0-5) /hpf Coronavirus (PCR) (Not Detectd) 05/14/21 Range/Units 13:39 WBC (3.8-10.6) k/uL RBC (4.30-5.90) m/uL Hgb (13.0-17.5) gm/dL Hct (39.0-53.0) % MCV (80.0-100.0) fL MCH (25.0-35.0) pg MCHC (31.0-37.0) g/dL RDW (11.5-15.5) % Plt Count (150-450) k/uL MPV Neutrophils % % Lymphocytes % % Monocytes % % Eosinophils % % Basophils % % Neutrophils # (1.3-7.7) k/uL Lymphocytes # (1.0-4.8) k/uL Monocytes # (0-1.0) k/uL Eosinophils # (0-0.7) k/uL Basophils # (0-0.2) k/uL PT (9.0-12.0) sec INR (<1.2) APTT (22.0-30.0) sec Sodium (137-145) mmol/L Potassium (3.5-5.1) mmol/L Chloride (98-107) mmol/L Carbon Dioxide (22-30) mmol/L Anion Gap mmol/L BUN (9-20) mg/dL Creatinine (0.66-1.25) mg/dL Est GFR (CKD-EPI)AfAm (>60 ml/min/1.73 sqM) Est GFR (CKD-EPI)NonAf (>60 ml/min/1.73 sqM) Glucose (74-99) mg/dL Plasma Lactic Acid Charles (0.7-2.0) mmol/L Calcium (8.4-10.2) mg/dL Magnesium (1.6-2.3) mg/dL Total Bilirubin (0.2-1.3) mg/dL AST (17-59) U/L ALT (4-49) U/L Alkaline Phosphatase (38-126) U/L Troponin I (0.000-0.034) ng/mL Total Protein (6.3-8.2) g/dL Albumin (3.5-5.0) g/dL Urine Color Urine Appearance (Clear) Urine pH (5.0-8.0) Ur Specific [place] (1.001-1.035) Urine Protein (Negative) Urine Glucose (UA) (Negative) Urine Ketones (Negative) Urine Blood (Negative) Urine Nitrite (Negative) Urine Bilirubin (Negative) Urine Urobilinogen (<2.0) mg/dL Ur Leukocyte Esterase (Negative) Urine RBC (0-5) /hpf Urine WBC (0-5) /hpf Coronavirus (PCR) Not Detected (Not Detectd) Disposition Clinical Impression: Weakness Disposition: HOME SELF-CARE Condition: Good Instructions (If sedation given, give patient instructions): Weakness (ED) Is patient prescribed a controlled substance at d/c from ED?: No Referrals: Marek Navarro MD [Primary Care Provider] - 1-2 days Time of Disposition: 14:32
[2021-05-14 13:42] LABS: Basophils % (A) 1 %; Eosinophils # (A) 0.3 k/uL (0-0.7); Eosinophils % (A) 4 %; HCT 48.1 % (39.0-53.0); HGB 15.9 gm/dL (13.0-17.5); Lymphocytes # (A) 1.5 k/uL (1.0-4.8); Lymphocytes % (A) 21 %; MCH 30.7 pg (25.0-35.0); Mean Platelet Volume 7.4; Monocytes # (A) 0.4 k/uL (0-1.0); Monocytes % (A) 6 %; Neutrophils # (A) 4.6 k/uL (1.3-7.7); Neutrophils % (A) 66 %; Platelet Count 228 k/uL (150-450); RBC 5.18 m/uL (4.30-5.90); RDW 12.4 % (11.5-15.5)
[2021-05-14 13:52] LABS: ALT 11 U/L (4-49); AST 27 U/L (17-59); African American GFR (CKD) >90 (>60 ml/min/1.73 sqM); Albumin 4.1 g/dL (3.5-5.0); Alkaline Phosphatase 85 U/L (38-126); Anion Gap 11 mmol/L; Blood Urea Nitrogen 12 mg/dL (9-20); Calcium 9.8 mg/dL (8.4-10.2); Carbon Dioxide 27 mmol/L (22-30); Chloride 104 mmol/L (98-107); Glucose 98 mg/dL (74-99); Magnesium 2.1 mg/dL (1.6-2.3); Non-African American GFR(CKD) 82 (>60 ml/min/1.73 sqM); Potassium 4.3 mmol/L (3.5-5.1); Sodium 142 mmol/L (137-145); Total Bilirubin 0.8 mg/dL (0.2-1.3); Total Protein 6.9 g/dL (6.3-8.2)
[2021-05-14 14:00] LABS: Appearance,Urine Clear (Clear); Bilirubin,Urine Negative (Negative); Blood,Urine Negative (Negative); Color,Urine Light Yellow; Glucose,Urine (UA) Negative (Negative); INR 1.1 (<1.2); Ketones,Urine Negative (Negative); Leukocyte Esterase,Urine Small (Negative); Nitrite,Urine Negative (Negative); PH, Urine 6.5 (5.0-8.0); Partial Thromboplastin Time 24.6 sec (22.0-30.0); Protein,Urine Negative (Negative); Prothrombin Time 11.2 sec (9.0-12.0); RBC,Urine <1 /hpf (0-5); Specific Gravity,Urine 1.004 (1.001-1.035); Urobilinogen,Urine <2.0 mg/dL (<2.0); WBC,Urine 4 /hpf (0-5)
--- NOTE | 2021-05-14 14:09 | XR ---
EXAMINATION TYPE: XR chest 2V DATE OF EXAM: 05/14/2021 COMPARISON: 01/17/2021 INDICATION: Weakness dimension TECHNIQUE: Frontal and lateral views of the chest are obtained. FINDINGS: The heart size is normal. The pulmonary vasculature is normal. The lungs are clear. Hyperinflation and flattening the diaphragms compatible with COPD. No suspicious infiltrates are evid ent. IMPRESSION: 1. No acute pulmonary process. 2. COPD
[2021-05-14 14:41] VITALS: BP 134/78; RESP 20
== END 2021-05-14 15:02 | disposition home or self-care (01) ==
LOC: EC 11:23
DX: R53.1 Weakness (principal); I10 Essential (primary) hypertension; I25.10 Atherosclerotic heart disease of native coronary artery without angina pectoris; J44.9 Chronic obstructive pulmonary disease, unspecified; F03.90 Unspecified dementia, unspecified severity, without behavioral disturbance, psychotic disturbance, mood disturbance, and anxiety; E78.5 Hyperlipidemia, unspecified; E07.9 Disorder of thyroid, unspecified; Z85.038 Personal history of other malignant neoplasm of large intestine; Z79.82 Long term (current) use of aspirin; Z90.49 Acquired absence of other specified parts of digestive tract; Z87.891 Personal history of nicotine dependence; Z20.822 Contact with and (suspected) exposure to COVID-19
CPT/HCPCS: 36415; 71046; 80053; 81001; 83605; 83735; 84484; 85025; 85610; 85730; 87635; 93005; 96360; 96361; 99285

== ENCOUNTER 2021-08-06 17:43 | Emergency (ER) | payer MEDICARE ==
--- NOTE | 2021-08-06 19:05 | ED ---
General Adult HPI - General Chief complaint: Chest Pain Stated complaint: Chest pain Time Seen by Provider: 08/06/21 18:00 Source: patient Mode of arrival: ambulatory Limitations: no limitations - History of Present Illness Initial comments: The patient is an 81-year-old male with past history of coronary artery disease, COPD, dementia, chronic type B aortic dissection who presents to the emergency department for chest discomfort and shortness of breath. states that the patient was at home when he suddenly has discoloration to his face. She r eported that his work of breathing increased. He crossed his arms across his chest indicating that he was having some discomfort in his chest. Patient does have a history of dementia and therefore his communication is limited. He presents to the emergency department and is asymptomatic at this time. was concerned because he had some shaking of his left upper extremity which she had never seen before. She denies cough, weakness in the extremities, fevers. He has the history of dissection follows with Dr. Kraus. No abdominal pain. Symptoms started at approximately 4 PM and resolved prior to hospital arrival. The remainder of the HPI is limited as the patient's history of dementia - Related Data Home Medications Medication Instructions Recorded Confirmed Levothyroxine Sodium [Synthroid] 50 mcg PO DAILY 05/31/19 08/07/21 atenoloL [Tenormin] 25 mg PO DAILY 01/07/20 08/07/21 Mirtazapine 15 mg PO HS 03/18/20 08/07/21 Aspirin 325 mg PO DAILY 09/04/20 08/07/21 Multivit-Min/FA/Lycopen/Lutein 1 tab PO DAILY 05/14/21 08/07/21 [Centrum Silver Men Tablet] Melatonin 5 mg PO HS 08/06/21 08/07/21 Previous Rx's Medication Instructions Recorded Nitroglycerin Sl Tabs [Nitrostat] 0.4 mg SUBLINGUAL Q5M PRN #25 tab 01/08/20 Allergies Allergy/AdvReac Type Severity Reaction Status Date / Time No Known Allergies Allergy Verified 08/07/21 15:48 Review of Systems ROS Statement: Those systems with pertinent positive or pertinent negative responses have been documented in the HPI. ROS Other: All systems not noted in ROS Statement are negative. Past Medical History Past Medical History: Coronary Artery Disease (CAD), Cancer, Chest Pain / Angina, COPD, Dementia, Hyperlipidemia, Hypertension, Memory Impairment, Pneumonia, Respiratory Disorder, Thyroid Disorder, Vascular Disorder Additional Past Medical History / Comment(s): Chronic type B aortic dissection, colon cancer twice with surgery, laryngeal cancer with surgery/radiation, stable pulmonary nodules, SOB with minimal exertion, hypothyroid. History of Any Multi-Drug Resistant Organisms: None Reported Past Surgical History: Appendectomy, Bowel Resection, Heart Catheterization Additional Past Surgical History / Comment(s): Bowel resection x2, surgery for laryngeal cancer, colonoscopies/polypectomy, hemorrhoidectomy. Past Anesthesia/Blood Transfusion Reactions: No Reported Reaction Past Psychological History: No Psychological Hx Reported Smoking Status: Former smoker Past Alcohol Use History: None Reported Past Drug Use History: None Reported - Past Family History Brother(s) Family Medical History: Cancer Additional Family Medical History / Comment(s): The patient has 2 brothers and one from bone cancer with metastatic disease, one from COPD. Father Additional Family Medical History / Comment(s): Father at age 82 from myocardial infarction. Mother Family Medical History: COPD Additional Family Medical History / Comment(s): Mother at age 70 from COPD. Sister(s) Family Medical History: COPD Additional Family Medical History / Comment(s): Patient has 1 sister that from COPD. Patient has one son that - he was hit by a truck. Patient had a total of 2 boys and 2 girls. General Exam Limitations: altered mental status General appearance: alert, in no apparent distress Head exam: Present: atraumatic, normocephalic, normal inspection Eye exam: Present: normal appearance, PERRL, EOMI. Absent: scleral icterus, conjunctival injection, periorbital swelling ENT exam: Present: normal exam, mucous membranes moist Neck exam: Present: normal inspection. Absent: tenderness, meningismus, lymphadenopathy Respiratory exam: Present: normal lung sounds bilaterally. Absent: respiratory distress, wheezes, rales, rhonchi, stridor Cardiovascular Exam: Present: regular rate, normal rhythm, normal heart sounds, other (equal pulses in all 4 extremities). Absent: systolic murmur, diastolic murmur, rubs, gallop, clicks GI/Abdominal exam: Present: soft, normal bowel sounds. Absent: distended, tenderness, guarding, rebound, rigid Extremities exam: Present: normal inspection, full ROM, normal capillary refill. Absent: tenderness, pedal edema, joint swelling, calf tenderness Back exam: Present: normal inspection Neurological exam: Present: alert, oriented X3, CN II-XII intact Psychiatric exam: Present: normal affect, normal mood Skin exam: Present: warm, dry, intact, normal color. Absent: rash Course Vital Signs 08/06/21 08/06/21 08/06/21 18:02 19:05 21:30 Temperature 97.2 F L 97.5 F L Pulse Rate 82 91 85 Respiratory 20 18 18 Rate Blood Pressure 131/89 130/70 125/92 O2 Sat by Pulse 98 95 85 L Oximetry EKG Findings - EKG Comments: EKG Findings:: EKG demonstrates a normal sinus rhythm with a ventricular rate of 64. PA interval 126. QRS 84. QTC of 439. Some baseline artifact. No acute ST segment elevations Medical Decision Making - Medical Decision Making The patient was placed into room 10. A thorough history and physical exam was performed. IV is established and laboratories are conducted. Patient is originally sent over for an x-ray of his chest. Laboratory studies are reviewed. Troponin is negative. Chest x-ray demonstrates no acute process. I did reevaluate the patient and he continues to remain pain free. Vitals are within normal limits. I did discuss the diagnosis, differential and treatment options. I did recommend that the patient be admitted to our facility in order to trend his troponins however family at bedside disagrees. They would prefer to take the patient home as he does have significant dementia and does not do well on his own. I informed them that his workup has been incomplete and that we did not evaluate the patient's aorta. The family understood and are aware of the risks of leaving. They feel that the patient is doing much better than he was earlier today and understand the limitations of our workup. They still requested take the patient home knowing the risks of permanent disability and even due. I informed them that they need to call and speak with their primary care physician tomorrow. Return for any further evaluation or if they agree to hospitalization. Family agreed and the patient was discharged home in stable condition - Lab Data Result diagrams: 08/06/21 19:04 08/06/21 19:04 Lab Results 08/06/21 08/06/21 08/06/21 Range/Units 19:04 19:04 19:04 WBC 8.1 (3.8-10.6) k/uL RBC 5.30 (4.30-5.90) m/uL Hgb 16.0 (13.0-17.5) gm/dL Hct 50.6 (39.0-53.0) % MCV 95.5 (80.0-100.0) fL MCH 30.1 (25.0-35.0) pg MCHC 31.5 (31.0-37.0) g/dL RDW 12.6 (11.5-15.5) % Plt Count 239 (150-450) k/uL MPV 7.7 Neutrophils % 75 % Lymphocytes % 15 % Monocytes % 5 % Eosinophils % 4 % Basophils % 0 % Neutrophils # 6.0 (1.3-7.7) k/uL Lymphocytes # 1.2 (1.0-4.8) k/uL Monocytes # 0.4 (0-1.0) k/uL Eosinophils # 0.3 (0-0.7) k/uL Basophils # 0.0 (0-0.2) k/uL PT 11.3 (9.0-12.0) sec INR 1.1 (<1.2) APTT 24.6 (22.0-30.0) sec Sodium 140 (137-145) mmol/L Potassium 4.7 (3.5-5.1) mmol/L Chloride 103 (98-107) mmol/L Carbon Dioxide 29 (22-30) mmol/L Anion Gap 8 mmol/L BUN 16 (9-20) mg/dL Creatinine 0.88 (0.66-1.25) mg/dL Est GFR (CKD-EPI)AfAm >90 (>60 ml/min/1.73 sqM) Est GFR (CKD-EPI)NonAf 80 (>60 ml/min/1.73 sqM) Glucose 103 H (74-99) mg/dL Calcium 9.7 (8.4-10.2) mg/dL Magnesium 2.0 (1.6-2.3) mg/dL Total Bilirubin 0.9 (0.2-1.3) mg/dL AST 28 (17-59) U/L ALT 13 (4-49) U/L Alkaline Phosphatase 96 (38-126) U/L Troponin I (0.000-0.034) ng/mL NT-Pro-B Natriuret Pep pg/mL Total Protein 7.3 (6.3-8.2) g/dL Albumin 4.3 (3.5-5.0) g/dL 08/06/21 08/06/21 Range/Units 19:04 19:04 WBC (3.8-10.6) k/uL RBC (4.30-5.90) m/uL Hgb (13.0-17.5) gm/dL Hct (39.0-53.0) % MCV (80.0-100.0) fL MCH (25.0-35.0) pg MCHC (31.0-37.0) g/dL RDW (11.5-15.5) % Plt Count (150-450) k/uL MPV Neutrophils % % Lymphocytes % % Monocytes % % Eosinophils % % Basophils % % Neutrophils # (1.3-7.7) k/uL Lymphocytes # (1.0-4.8) k/uL Monocytes # (0-1.0) k/uL Eosinophils # (0-0.7) k/uL Basophils # (0-0.2) k/uL PT (9.0-12.0) sec INR (<1.2) APTT (22.0-30.0) sec Sodium (137-145) mmol/L Potassium (3.5-5.1) mmol/L Chloride (98-107) mmol/L Carbon Dioxide (22-30) mmol/L Anion Gap mmol/L BUN (9-20) mg/dL Creatinine (0.66-1.25) mg/dL Est GFR (CKD-EPI)AfAm (>60 ml/min/1.73 sqM) Est GFR (CKD-EPI)NonAf (>60 ml/min/1.73 sqM) Glucose (74-99) mg/dL Calcium (8.4-10.2) mg/dL Magnesium (1.6-2.3) mg/dL Total Bilirubin (0.2-1.3) mg/dL AST (17-59) U/L ALT (4-49) U/L Alkaline Phosphatase (38-126) U/L Troponin I <0.012 (0.000-0.034) ng/mL NT-Pro-B Natriuret Pep 434 pg/mL Total Protein (6.3-8.2) g/dL Albumin (3.5-5.0) g/dL Disposition Clinical Impression: Chest pain Disposition: HOME SELF-CARE Condition: Undetermined Instructions (If sedation given, give patient instructions): Chest Pain (ED) Additional Instructions: I recommended admission - your workup was incomplete today and we would prefer to watch you overnight. You need to call your doctor in the morning to let them know your symptoms. Return to the ED for any new or worsening symptoms. Is patient prescribed a controlled substance at d/c from ED?: No Referrals: Ekaterina Ngo MD [Primary Care Provider] - 1-2 days Time of Disposition: 21:11
--- NOTE | 2021-08-06 19:25 | XR ---
EXAMINATION TYPE: XR chest 2V DATE OF EXAM: 08/06/2021 COMPARISON: 05/14/2021 HISTORY: Chest pain TECHNIQUE: Frontal and lateral views of the chest are obtained. FINDINGS: There is no focal air space opacity, pleural effusion, or pneumothorax seen. There is osito kground of COPD. The cardiac silhouette size is within normal limits. The osseous structures are in tact. IMPRESSION: No acute cardiopulmonary process. COPD.
[2021-08-06 19:27] LABS: Basophils % (A) 0 %; Eosinophils # (A) 0.3 k/uL (0-0.7); Eosinophils % (A) 4 %; HCT 50.6 % (39.0-53.0); Lymphocytes # (A) 1.2 k/uL (1.0-4.8); Lymphocytes % (A) 15 %; MCH 30.1 pg (25.0-35.0); MCHC 31.5 g/dL (31.0-37.0); MCV 95.5 fL (80.0-100.0); Mean Platelet Volume 7.7; Monocytes # (A) 0.4 k/uL (0-1.0); Monocytes % (A) 5 %; Neutrophils % (A) 75 %; Platelet Count 239 k/uL (150-450); RDW 12.6 % (11.5-15.5); WBC 8.1 k/uL (3.8-10.6)
[2021-08-06 19:36] LABS: INR 1.1 (<1.2); Partial Thromboplastin Time 24.6 sec (22.0-30.0); Prothrombin Time 11.3 sec (9.0-12.0)
[2021-08-06 19:46] LABS: ALT 13 U/L (4-49); AST 28 U/L (17-59); African American GFR (CKD) >90 (>60 ml/min/1.73 sqM); Albumin 4.3 g/dL (3.5-5.0); Alkaline Phosphatase 96 U/L (38-126); Anion Gap 8 mmol/L; Blood Urea Nitrogen 16 mg/dL (9-20); Calcium 9.7 mg/dL (8.4-10.2); Carbon Dioxide 29 mmol/L (22-30); Chloride 103 mmol/L (98-107); Glucose 103 mg/dL (74-99); Non-African American GFR(CKD) 80 (>60 ml/min/1.73 sqM); Potassium 4.7 mmol/L (3.5-5.1); Sodium 140 mmol/L (137-145); Total Bilirubin 0.9 mg/dL (0.2-1.3); Total Protein 7.3 g/dL (6.3-8.2)
[2021-08-06 19:54] VITALS: RESP 18
[2021-08-06 21:49] VITALS: BP 125/92; PULSE 85; TEMP 97.5
== END 2021-08-06 21:30 | disposition home or self-care (01) ==
LOC: EC 17:43
DX: R07.9 Chest pain, unspecified (principal); I10 Essential (primary) hypertension; I25.10 Atherosclerotic heart disease of native coronary artery without angina pectoris; E78.5 Hyperlipidemia, unspecified; J44.9 Chronic obstructive pulmonary disease, unspecified; E03.9 Hypothyroidism, unspecified; F03.90 Unspecified dementia, unspecified severity, without behavioral disturbance, psychotic disturbance, mood disturbance, and anxiety; Z79.890 Hormone replacement therapy; Z79.82 Long term (current) use of aspirin; Z79.899 Other long term (current) drug therapy; Z87.891 Personal history of nicotine dependence
CPT/HCPCS: 36415; 71046; 80053; 83735; 83880; 84484; 85025; 85610; 85730; 93005; 99285

== ENCOUNTER 2021-09-28 08:41 | Emergency (ER) | payer MEDICARE ==
--- NOTE | 2021-09-28 09:15 | ED ---
General Adult HPI - General Chief complaint: Altered Mental Status Stated complaint: altered mental status Time Seen by Provider: 09/28/21 08:42 Source: EMS Mode of arrival: EMS Limitations: altered mental status - History of Present Illness Initial comments: Dictation was produced using [employer] dictation software. please excuse any grammatical, word or spelling errors. Chief Complaint: 81-year-old male past medical history dementia and other significant comorbidities presents to the emergency department for altered mental status History of Present Illness: Is a 81-year-old male he is brought in by and daughter. Patient allegedly told family that he does not feel well and wants to come to the hospital. reports that patient normally hates hospitals. She is worried that something is benign. Patient at baseline barely speaks to anyone except his . He has history of dementia. Patient allegedly has been crying out for his father who is . Patient is unable to provide history of present illness. He allegedly became combative with EMS en route to the emergency department. reports the patient is full code. The ROS documented in this emergency department record has been reviewed and confirmed by me. Those systems with pertinent positive or negative responses have been documented in the HPI. All other systems are other negative and/or noncontributory. PHYSICAL EXAM: General Impression: Alert, uncooperative, not in acute distress, mildly aggressive HEENT: Normocephalic atraumatic, extra-ocular movements intact, pupils equal and reactive to light bilaterally, mucous membranes moist. Cardiovascular: Heart regular rate and rhythm Chest: no retractions, no tachypnea Abdomen: abdomen soft, non-tender, non-distended, no organomegaly Musculoskeletal: Pulses present and equal in all extremities, no peripheral edema Motor: no focal deficits noted Neurological: CN II-XII grossly intact, no focal motor or sensory deficits noted Skin: Intact with no visualized rashes Psych: Aggressive during physical exam ED course: 81-year-old male presents to the emergency department for concerns of medical issue. Vital signs upon arrival shows oxygen saturation of 87% on room air. Rest of vital signs within acceptable limits. Limited evaluation obtained. CBC remarkable. Metabolic panel is negative. Abdominal labs negative. Urinalysis shows a urinary tract infection. 4 panel viral PCR is negative for influenza, COVID-19 or RSV. Computed tomography scan of brain shows no acute processes. There does appear to be brain volume loss. Chest x-ray is unremarkable. Patient reevaluated at bedside at 1:00 PM after a four-hour 20 minute ER observation found to be in stable medical condition. Patient appears to be better. He is not aggressive or combative he is smiling. Results imaging studies were discussed with patient and family member. The agreeable for discharge. Patient would benefit from home health care nursing due to his age and social situation. Jenny our case operator will help arrange this. - Related Data Home Medications Medication Instructions Recorded Confirmed Levothyroxine Sodium [Synthroid] 50 mcg PO DAILY 05/31/19 09/28/21 atenoloL [Tenormin] 25 mg PO DAILY 01/07/20 09/28/21 Mirtazapine 15 mg PO HS 03/18/20 09/28/21 Aspirin 325 mg PO DAILY 09/04/20 09/28/21 Multivit-Min/FA/Lycopen/Lutein 1 tab PO DAILY 05/14/21 09/28/21 [Centrum Silver Men Tablet] Melatonin 5 mg PO HS 08/06/21 09/28/21 Nitroglycerin Sl Tabs [Nitrostat] 0.4 mg SL Q5M PRN 09/28/21 09/28/21 Allergies Allergy/AdvReac Type Severity Reaction Status Date / Time No Known Allergies Allergy Verified 09/28/21 09:27 Review of Systems ROS Statement: Those systems with pertinent positive or pertinent negative responses have been documented in the HPI. ROS Other: All systems not noted in ROS Statement are negative. Past Medical History Past Medical History: Coronary Artery Disease (CAD), Cancer, Chest Pain / Angina, COPD, Dementia, Hyperlipidemia, Hypertension, Memory Impairment, Pneumonia, Respiratory Disorder, Thyroid Disorder, Vascular Disorder Additional Past Medical History / Comment(s): Chronic type B aortic dissection, colon cancer twice with surgery, laryngeal cancer with surgery/radiation, stable pulmonary nodules, SOB with minimal exertion, hypothyroid. History of Any Multi-Drug Resistant Organisms: None Reported Past Surgical History: Appendectomy, Bowel Resection, Heart Catheterization Additional Past Surgical History / Comment(s): Bowel resection x2, surgery for laryngeal cancer, colonoscopies/polypectomy, hemorrhoidectomy. Past Anesthesia/Blood Transfusion Reactions: No Reported Reaction Past Psychological History: No Psychological Hx Reported Smoking Status: Former smoker Past Alcohol Use History: None Reported Past Drug Use History: None Reported - Past Family History Brother(s) Family Medical History: Cancer Additional Family Medical History / Comment(s): The patient has 2 brothers and one from bone cancer with metastatic disease, one from COPD. Father Additional Family Medical History / Comment(s): Father at age 82 from myocardial infarction. Mother Family Medical History: COPD Additional Family Medical History / Comment(s): Mother at age 70 from COPD. Sister(s) Family Medical History: COPD Additional Family Medical History / Comment(s): Patient has 1 sister that from COPD. Patient has one son that - he was hit by a truck. Patient had a total of 2 boys and 2 girls. General Exam Limitations: altered mental status Course Vital Signs 09/28/21 09/28/21 08:47 11:28 Pulse Rate 72 55 L Respiratory 18 16 Rate Blood Pressure 108/72 O2 Sat by Pulse 87 L 93 L Oximetry Medical Decision Making - Lab Data Result diagrams: 09/28/21 09:45 09/28/21 11:00 Lab Results 09/28/21 09/28/21 09/28/21 Range/Units 09:45 09:45 11:00 WBC 8.7 (3.8-10.6) k/uL RBC 5.42 (4.30-5.90) m/uL Hgb 16.4 (13.0-17.5) gm/dL Hct 51.8 (39.0-53.0) % MCV 95.6 (80.0-100.0) fL MCH 30.3 (25.0-35.0) pg MCHC 31.7 (31.0-37.0) g/dL RDW 12.4 (11.5-15.5) % Plt Count 232 (150-450) k/uL MPV 7.6 Neutrophils % 69 % Lymphocytes % 18 % Monocytes % 6 % Eosinophils % 5 % Basophils % 1 % Neutrophils # 6.0 (1.3-7.7) k/uL Lymphocytes # 1.5 (1.0-4.8) k/uL Monocytes # 0.5 (0-1.0) k/uL Eosinophils # 0.4 (0-0.7) k/uL Basophils # 0.1 (0-0.2) k/uL Sodium 143 (137-145) mmol/L Potassium 4.7 (3.5-5.1) mmol/L Chloride 106 (98-107) mmol/L Carbon Dioxide 31 H (22-30) mmol/L Anion Gap 6 mmol/L BUN 19 (9-20) mg/dL Creatinine 0.77 (0.66-1.25) mg/dL Est GFR (CKD-EPI)AfAm >90 (>60 ml/min/1.73 sqM) Est GFR (CKD-EPI)NonAf 85 (>60 ml/min/1.73 sqM) Glucose 96 (74-99) mg/dL Calcium 9.2 (8.4-10.2) mg/dL Magnesium 2.1 (1.6-2.3) mg/dL Total Bilirubin 0.8 (0.2-1.3) mg/dL AST 29 (17-59) U/L ALT 10 (4-49) U/L Alkaline Phosphatase 68 (38-126) U/L Total Protein 6.7 (6.3-8.2) g/dL Albumin 3.8 (3.5-5.0) g/dL Urine Color Urine Appearance (Clear) Urine pH (5.0-8.0) Ur Specific [place] (1.001-1.035) Urine Protein (Negative) Urine Glucose (UA) (Negative) Urine Ketones (Negative) Urine Blood (Negative) Urine Nitrite (Negative) Urine Bilirubin (Negative) Urine Urobilinogen (<2.0) mg/dL Ur Leukocyte Esterase (Negative) Urine RBC (0-5) /hpf Urine WBC (0-5) /hpf Urine Mucus (None) /hpf Influenza Type A (PCR) Not Detected (Not Detectd) Influenza Type B (PCR) Not Detected (Not Detectd) RSV (PCR) Not Detected (Not Detectd) SARS-CoV-2 (PCR) Not Detected (Not Detectd) 09/28/21 Range/Units 12:06 WBC (3.8-10.6) k/uL RBC (4.30-5.90) m/uL Hgb (13.0-17.5) gm/dL Hct (39.0-53.0) % MCV (80.0-100.0) fL MCH (25.0-35.0) pg MCHC (31.0-37.0) g/dL RDW (11.5-15.5) % Plt Count (150-450) k/uL MPV Neutrophils % % Lymphocytes % % Monocytes % % Eosinophils % % Basophils % % Neutrophils # (1.3-7.7) k/uL Lymphocytes # (1.0-4.8) k/uL Monocytes # (0-1.0) k/uL Eosinophils # (0-0.7) k/uL Basophils # (0-0.2) k/uL Sodium (137-145) mmol/L Potassium (3.5-5.1) mmol/L Chloride (98-107) mmol/L Carbon Dioxide (22-30) mmol/L Anion Gap mmol/L BUN (9-20) mg/dL Creatinine (0.66-1.25) mg/dL Est GFR (CKD-EPI)AfAm (>60 ml/min/1.73 sqM) Est GFR (CKD-EPI)NonAf (>60 ml/min/1.73 sqM) Glucose (74-99) mg/dL Calcium (8.4-10.2) mg/dL Magnesium (1.6-2.3) mg/dL Total Bilirubin (0.2-1.3) mg/dL AST (17-59) U/L ALT (4-49) U/L Alkaline Phosphatase (38-126) U/L Total Protein (6.3-8.2) g/dL Albumin (3.5-5.0) g/dL Urine Color Yellow Urine Appearance Clear (Clear) Urine pH 5.0 (5.0-8.0) Ur Specific [place] 1.024 (1.001-1.035) Urine Protein Negative (Negative) Urine Glucose (UA) Negative (Negative) Urine Ketones Negative (Negative) Urine Blood Negative (Negative) Urine Nitrite Negative (Negative) Urine Bilirubin Negative (Negative) Urine Urobilinogen <2.0 (<2.0) mg/dL Ur Leukocyte Esterase Trace H (Negative) Urine RBC 2 (0-5) /hpf Urine WBC 3 (0-5) /hpf Urine Mucus Rare H (None) /hpf Influenza Type A (PCR) (Not Detectd) Influenza Type B (PCR) (Not Detectd) RSV (PCR) (Not Detectd) SARS-CoV-2 (PCR) (Not Detectd) Disposition Clinical Impression: Dementia Disposition: HOME SELF-CARE Condition: Good Instructions (If sedation given, give patient instructions): Dementia (ED) Is patient prescribed a controlled substance at d/c from ED?: No Referrals: Ekaterina Ngo MD [Primary Care Provider] - 1-2 days
--- NOTE | 2021-09-28 09:51 | XR ---
EXAMINATION TYPE: XR chest 2V DATE OF EXAM: 09/28/2021 COMPARISON: Chest x-ray 08/06/2021, CT chest 08/07/2021 HISTORY: Hypoxia TECHNIQUE: Frontal and lateral views of the chest are obtained on 4 images. FINDINGS: There is no focal air space opacity, pleural effusion, or pneumothorax seen. The cardiac silhouette size is within normal limits. Prominent lung volumes with flattening of hemidiaphragms con sistent with COPD are noted. There are overlying artifacts. The aorta is dense. The osseous structur es are intact. IMPRESSION: No acute cardiopulmonary process. Emphysema
--- NOTE | 2021-09-28 09:55 | CT ---
EXAMINATION TYPE: CT brain wo con DATE OF EXAM: 09/28/2021 COMPARISON: CT dated 01/17/2021 HISTORY: Altered mental status CT DLP: 1158.4 mGycm Automated exposure control for dose reduction was used. TECHNIQUE: CT scan of the brain is performed without IV contrast administration. FINDINGS: Moderate to marked brain volume loss changes, underlying neurodegenerative disease cannot be excluded . Scattered arterial atherosclerotic calcifications. No acute intracranial hemorrhage or gross acute cortical infarct. No midline shift or herniation. Unr emarkable basal cisterns, sella and CP angles. No gross space-occupying lesion, vasogenic edema or ma ss effect. Unremarkable orbits. Clear visualized paranasal sinuses and mastoid air cells. No aggressive bone les ion. IMPRESSION: No acute intracranial hemorrhage or gross acute cortical infarct. No space-occupying lesion by this n onenhanced CT scan. Brain volume loss changes as described above.
[2021-09-28 10:03] LABS: Basophils # (A) 0.1 k/uL (0-0.2); Basophils % (A) 1 %; Eosinophils # (A) 0.4 k/uL (0-0.7); Eosinophils % (A) 5 %; HCT 51.8 % (39.0-53.0); HGB 16.4 gm/dL (13.0-17.5); Lymphocytes # (A) 1.5 k/uL (1.0-4.8); Lymphocytes % (A) 18 %; MCH 30.3 pg (25.0-35.0); MCHC 31.7 g/dL (31.0-37.0); MCV 95.6 fL (80.0-100.0); Mean Platelet Volume 7.6; Monocytes # (A) 0.5 k/uL (0-1.0); Monocytes % (A) 6 %; Neutrophils % (A) 69 %; Platelet Count 232 k/uL (150-450); RBC 5.42 m/uL (4.30-5.90); RDW 12.4 % (11.5-15.5); WBC 8.7 k/uL (3.8-10.6)
[2021-09-28 10:40] LABS: Influenza A Not Detected (Not Detectd); Influenza B Not Detected (Not Detectd)
[2021-09-28 11:26] LABS: ALT 10 U/L (4-49); AST 29 U/L (17-59); African American GFR (CKD) >90 (>60 ml/min/1.73 sqM); Albumin 3.8 g/dL (3.5-5.0); Alkaline Phosphatase 68 U/L (38-126); Anion Gap 6 mmol/L; Blood Urea Nitrogen 19 mg/dL (9-20); Calcium 9.2 mg/dL (8.4-10.2); Carbon Dioxide 31 mmol/L (22-30); Chloride 106 mmol/L (98-107); Glucose 96 mg/dL (74-99); Magnesium 2.1 mg/dL (1.6-2.3); Non-African American GFR(CKD) 85 (>60 ml/min/1.73 sqM); Sodium 143 mmol/L (137-145); Total Bilirubin 0.8 mg/dL (0.2-1.3); Total Protein 6.7 g/dL (6.3-8.2)
[2021-09-28 11:46] LABS: Potassium 4.7 mmol/L (3.5-5.1)
[2021-09-28 12:52] LABS: Appearance,Urine Clear (Clear); Bilirubin,Urine Negative (Negative); Blood,Urine Negative (Negative); Color,Urine Yellow; Glucose,Urine (UA) Negative (Negative); Ketones,Urine Negative (Negative); Leukocyte Esterase,Urine Trace (Negative); Mucus,Urine Rare /hpf; Nitrite,Urine Negative (Negative); Protein,Urine Negative (Negative); RBC,Urine 2 /hpf (0-5); Specific Gravity,Urine 1.024 (1.001-1.035); Urobilinogen,Urine <2.0 mg/dL (<2.0); WBC,Urine 3 /hpf (0-5)
[2021-09-28 13:06] VITALS: RESP 18
[2021-09-28 14:51] VITALS: BP 101/68; PULSE 65
== END 2021-09-28 14:52 | disposition home or self-care (01) ==
LOC: EC 08:41
DX: F03.90 Unspecified dementia, unspecified severity, without behavioral disturbance, psychotic disturbance, mood disturbance, and anxiety (principal); I25.10 Atherosclerotic heart disease of native coronary artery without angina pectoris; J44.9 Chronic obstructive pulmonary disease, unspecified; E78.5 Hyperlipidemia, unspecified; I10 Essential (primary) hypertension; E07.9 Disorder of thyroid, unspecified; Z20.822 Contact with and (suspected) exposure to COVID-19; Z79.82 Long term (current) use of aspirin; Z85.038 Personal history of other malignant neoplasm of large intestine; Z85.21 Personal history of malignant neoplasm of larynx; Z90.49 Acquired absence of other specified parts of digestive tract; Z87.891 Personal history of nicotine dependence
CPT/HCPCS: 36415; 70450; 71046; 80053; 81001; 83735; 85025; 87636; 93005; 99285

== ENCOUNTER → 2021-10-15 | Outpatient (CLI) | payer MEDICARE ==
--- NOTE | 2021-10-15 11:55 | FL ---
EXAMINATION TYPE: FL barium swallow w video DATE OF EXAM: 10/15/2021 MODIFIED SWALLOW / DEGLUTITION STUDY CLINICAL HISTORY: Dysphagia. TECHNIQUE: Deglutition study is performed utilizing thin liquid barium, honey and nectar thick liqui d barium, barium thick applesauce, and barium coated cracker. Total of 52 seconds of fluoro time and 0 images obtained. COMPARISON: None. FINDINGS: The oral and pharyngeal phases show satisfactory initiation and propagation with all modali ties tested. Normal mastication is seen with solid modalities tested. There is no evidence of penet ration or aspiration with any modality tested. No significant pharyngeal residue was appreciated. IMPRESSION: No penetration or aspiration observed. Please refer to speech therapist notes for furthe r details if necessary.
== END | disposition home or self-care (01) ==
LOC: RADFLMAIN 10:57
PROVIDERS: ATTEND Family Medicine
DX: R13.13 Dysphagia, pharyngeal phase (principal)
CPT/HCPCS: 74230

== ENCOUNTER 2021-11-05 16:55 | Emergency (ER) | payer MEDICARE ==
[2021-11-05 17:15] VITALS: PULSE 78; RESP 18; TEMP 98.2
[2021-11-05] MEDS ORDERED: SODIUM CHLORIDE 0.9% 500 ML 500 ML IV ONE (17:15)
[2021-11-05 17:38] LABS: Glucose,Whole Blood 117 mg/dL (75-99)
[2021-11-05 17:54] LABS: Appearance,Urine Clear (Clear); Bilirubin,Urine Negative (Negative); Blood,Urine Negative (Negative); Color,Urine Yellow; Glucose,Urine (UA) Negative (Negative); Ketones,Urine Negative (Negative); Leukocyte Esterase,Urine Negative (Negative); Nitrite,Urine Negative (Negative); PH, Urine 6.5 (5.0-8.0); Protein,Urine Negative (Negative); Specific Gravity,Urine 1.028 (1.001-1.035); Urobilinogen,Urine <2.0 mg/dL (<2.0)
[2021-11-05 17:59] LABS: Basophils # (A) 0.1 k/uL (0-0.2); Basophils % (A) 1 %; Eosinophils # (A) 0.5 k/uL (0-0.7); Eosinophils % (A) 5 %; HCT 48.7 % (39.0-53.0); HGB 15.2 gm/dL (13.0-17.5); Lymphocytes # (A) 2.2 k/uL (1.0-4.8); Lymphocytes % (A) 26 %; MCH 29.3 pg (25.0-35.0); MCHC 31.3 g/dL (31.0-37.0); MCV 93.8 fL (80.0-100.0); Mean Platelet Volume 7.9; Monocytes # (A) 0.4 k/uL (0-1.0); Monocytes % (A) 5 %; Neutrophils # (A) 5.3 k/uL (1.3-7.7); Neutrophils % (A) 61 %; Platelet Count 296 k/uL (150-450); RDW 12.6 % (11.5-15.5); WBC 8.7 k/uL (3.8-10.6)
[2021-11-05 18:03] LABS: ALT 15 U/L (4-49); AST 33 U/L (17-59); African American GFR (CKD) >90 (>60 ml/min/1.73 sqM); Albumin 4.1 g/dL (3.5-5.0); Alkaline Phosphatase 92 U/L (38-126); Anion Gap 9 mmol/L; Blood Urea Nitrogen 16 mg/dL (9-20); Calcium 9.2 mg/dL (8.4-10.2); Carbon Dioxide 23 mmol/L (22-30); Chloride 108 mmol/L (98-107); Glucose 108 mg/dL (74-99); Non-African American GFR(CKD) 81 (>60 ml/min/1.73 sqM); Sodium 140 mmol/L (137-145)
[2021-11-05 18:04] LABS: Amphetamine Screen,Urine Not Detected (NotDetected); Barbiturate Screen,Urine Not Detected (NotDetected); Benzodiazepines Screen,Urine Not Detected (NotDetected); Cocaine Screen,Urine Not Detected (NotDetected); Methadone Screen, Urine Not Detected (NotDetected); Opiate Screen,Urine Not Detected (NotDetected); Oxycodone Screen, Urine Not Detected (NotDetected); Partial Thromboplastin Time 23.8 sec (22.0-30.0); Phencyclidine Screen,Urine Not Detected (NotDetected); Prothrombin Time 10.9 sec (9.0-12.0); Tricyclic Antidepressant,Urine Not Detected (NotDetected); Urn Cannabinoid Scrn Not Detected (NotDetected)
--- NOTE | 2021-11-05 18:37 | ED ---
General Adult HPI - General Chief complaint: Altered Mental Status Stated complaint: AMS Time Seen by Provider: 11/05/21 17:00 Source: patient, EMS, RN notes reviewed, old records reviewed Mode of arrival: EMS Limitations: altered mental status - History of Present Illness Initial comments: This is an 81-year-old male who is brought into the emergency department with the initial complaint of altered mental status however when the showed up she stated that he has been constipated since Tuesday and hasn't urinated since yesterday. Patient himself is unable to give any history. Patient has no history of any problems breathing or fever. Patient has a history of dementia and when you move him he becomes slightly combative. states he has been sleeping more but doesn't really mention that he is more altered. He normally is awake and oriented 1 - Related Data Home Medications Medication Instructions Recorded Confirmed Levothyroxine Sodium [Synthroid] 50 mcg PO DAILY 05/31/19 11/05/21 atenoloL [Tenormin] 25 mg PO BID 01/07/20 11/05/21 Mirtazapine 15 mg PO HS 03/18/20 11/05/21 Aspirin 325 mg PO DAILY 09/04/20 11/05/21 Nitroglycerin Sl Tabs [Nitrostat] 0.4 mg SL Q5M PRN 09/28/21 11/05/21 Psyllium Husk 100% [Metamucil 6 gm PO DAILY 11/05/21 11/05/21 Packet] Sennosides/Docusate Sodium [Senna 1 cap PO HS 11/05/21 11/05/21 Plus 8.6-50 mg Softgel] Allergies Allergy/AdvReac Type Severity Reaction Status Date / Time No Known Allergies Allergy Verified 11/05/21 18:17 Review of Systems ROS Statement: Those systems with pertinent positive or pertinent negative responses have been documented in the HPI. ROS Other: All systems not noted in ROS Statement are negative. Past Medical History Past Medical History: Coronary Artery Disease (CAD), Cancer, Chest Pain / Angina, COPD, Dementia, Hyperlipidemia, Hypertension, Memory Impairment, Pneumonia, Respiratory Disorder, Thyroid Disorder, Vascular Disorder Additional Past Medical History / Comment(s): Chronic type B aortic dissection, colon cancer twice with surgery, laryngeal cancer with surgery/radiation, stable pulmonary nodules, SOB with minimal exertion, hypothyroid. History of Any Multi-Drug Resistant Organisms: None Reported Past Surgical History: Appendectomy, Bowel Resection, Heart Catheterization Additional Past Surgical History / Comment(s): Bowel resection x2, surgery for laryngeal cancer, colonoscopies/polypectomy, hemorrhoidectomy. Past Anesthesia/Blood Transfusion Reactions: No Reported Reaction Past Psychological History: No Psychological Hx Reported Smoking Status: Former smoker Past Alcohol Use History: None Reported Past Drug Use History: None Reported - Past Family History Brother(s) Family Medical History: Cancer Additional Family Medical History / Comment(s): The patient has 2 brothers and one from bone cancer with metastatic disease, one from COPD. Father Additional Family Medical History / Comment(s): Father at age 82 from myocardial infarction. Mother Family Medical History: COPD Additional Family Medical History / Comment(s): Mother at age 70 from COPD. Sister(s) Family Medical History: COPD Additional Family Medical History / Comment(s): Patient has 1 sister that from COPD. Patient has one son that - he was hit by a truck. Patient had a total of 2 boys and 2 girls. General Exam - General Exam Comments Initial Comments: GENERAL: Patient is cachectic but per the this is his normal state. Patient is nontoxic and well-hydrated and is in no acute distress. ENT: Neck is soft and supple. No significant lymphadenopathy is noted. Oropharynx is clear. Moist mucous membranes. EYES: The sclera were anicteric and conjunctiva were pink and moist. Extraocular movements were intact and pupils were equal round and reactive to light. Eyelids were unremarkable. PULMONARY: Unlabored respirations. Good breath sounds bilaterally. CARDIOVASCULAR: There is a regular rate and rhythm without any murmurs gallops or rubs. ABDOMEN: Tender diffusely SKIN: Skin is clear with no lesions or rashes and otherwise unremarkable. NEUROLOGIC: Patient is alert his baseline per his MUSCULOSKELETAL: Normal extremities with adequate strength and full range of motion. No lower extremity swelling or edema. No calf tenderness. LYMPHATICS: No significant lymphadenopathy is noted PSYCHIATRIC: Unable to assess secondary to dementia Limitations: altered mental status Course Vital Signs 11/05/21 16:57 Temperature 98.2 F Pulse Rate 78 Respiratory 18 Rate Blood Pressure 131/65 O2 Sat by Pulse 95 Oximetry Procedures - [place] Protocol (Time Out) Nurse: Cook,Cortney M Medical Decision Making - Medical Decision Making EKG shows sinus rhythm at 87 bpm NV interval 100 QRS is 87 QT interval is 232 QTC is 277. Patient's EKG shows no ST segment elevation. I will back into the room to reevaluate the patient and state he had a headache so I gave the patient some Tylenol. KUB shows some stool retention so patient will be getting an enema. Patient is in no distress and tells me he is in no pain. Patient had enema and had a bowel movement and is feeling better and wanted go home. - Lab Data Result diagrams: 11/05/21 17:42 11/05/21 17:42 Lab Results 11/05/21 11/05/21 11/05/21 Range/Units 17:23 17:42 17:42 WBC 8.7 (3.8-10.6) k/uL RBC 5.20 (4.30-5.90) m/uL Hgb 15.2 (13.0-17.5) gm/dL Hct 48.7 (39.0-53.0) % MCV 93.8 (80.0-100.0) fL MCH 29.3 (25.0-35.0) pg MCHC 31.3 (31.0-37.0) g/dL RDW 12.6 (11.5-15.5) % Plt Count 296 (150-450) k/uL MPV 7.9 Neutrophils % 61 % Lymphocytes % 26 % Monocytes % 5 % Eosinophils % 5 % Basophils % 1 % Neutrophils # 5.3 (1.3-7.7) k/uL Lymphocytes # 2.2 (1.0-4.8) k/uL Monocytes # 0.4 (0-1.0) k/uL Eosinophils # 0.5 (0-0.7) k/uL Basophils # 0.1 (0-0.2) k/uL PT 10.9 (9.0-12.0) sec INR 1.0 (<1.2) APTT 23.8 (22.0-30.0) sec Sodium (137-145) mmol/L Potassium (3.5-5.1) mmol/L Chloride (98-107) mmol/L Carbon Dioxide (22-30) mmol/L Anion Gap mmol/L BUN (9-20) mg/dL Creatinine (0.66-1.25) mg/dL Est GFR (CKD-EPI)AfAm (>60 ml/min/1.73 sqM) Est GFR (CKD-EPI)NonAf (>60 ml/min/1.73 sqM) Glucose (74-99) mg/dL POC Glucose (mg/dL) 117 H (75-99) mg/dL POC Glu Laboratory Asst ID Josefina Sanchez Lactic Ac Sepsis Rflx Plasma Lactic Acid Charles (0.7-2.0) mmol/L Calcium (8.4-10.2) mg/dL Total Bilirubin (0.2-1.3) mg/dL AST (17-59) U/L ALT (4-49) U/L Alkaline Phosphatase (38-126) U/L Troponin I (0.000-0.034) ng/mL Total Protein (6.3-8.2) g/dL Albumin (3.5-5.0) g/dL Urine Color Urine Appearance (Clear) Urine pH (5.0-8.0) Ur Specific [place] (1.001-1.035) Urine Protein (Negative) Urine Glucose (UA) (Negative) Urine Ketones (Negative) Urine Blood (Negative) Urine Nitrite (Negative) Urine Bilirubin (Negative) Urine Urobilinogen (<2.0) mg/dL Ur Leukocyte Esterase (Negative) Urine Opiates Screen (NotDetected) Ur Oxycodone Screen (NotDetected) Urine Methadone Screen (NotDetected) Ur Propoxyphene Screen (NotDetected) Ur Barbiturates Screen (NotDetected) U Tricyclic Antidepress (NotDetected) Ur Phencyclidine Scrn (NotDetected) Ur Amphetamines Screen (NotDetected) U Methamphetamines Scrn (NotDetected) U Benzodiazepines Scrn (NotDetected) Urine Cocaine Screen (NotDetected) U Marijuana (THC) Screen (NotDetected) 11/05/21 11/05/21 11/05/21 Range/Units 17:42 17:42 17:42 WBC (3.8-10.6) k/uL RBC (4.30-5.90) m/uL Hgb (13.0-17.5) gm/dL Hct (39.0-53.0) % MCV (80.0-100.0) fL MCH (25.0-35.0) pg MCHC (31.0-37.0) g/dL RDW (11.5-15.5) % Plt Count (150-450) k/uL MPV Neutrophils % % Lymphocytes % % Monocytes % % Eosinophils % % Basophils % % Neutrophils # (1.3-7.7) k/uL Lymphocytes # (1.0-4.8) k/uL Monocytes # (0-1.0) k/uL Eosinophils # (0-0.7) k/uL Basophils # (0-0.2) k/uL PT (9.0-12.0) sec INR (<1.2) APTT (22.0-30.0) sec Sodium 140 (137-145) mmol/L Potassium 4.0 (3.5-5.1) mmol/L Chloride 108 H (98-107) mmol/L Carbon Dioxide 23 (22-30) mmol/L Anion Gap 9 mmol/L BUN 16 (9-20) mg/dL Creatinine 0.87 (0.66-1.25) mg/dL Est GFR (CKD-EPI)AfAm >90 (>60 ml/min/1.73 sqM) Est GFR (CKD-EPI)NonAf 81 (>60 ml/min/1.73 sqM) Glucose 108 H (74-99) mg/dL POC Glucose (mg/dL) (75-99) mg/dL POC Glu Laboratory Asst ID Lactic Ac Sepsis Rflx Plasma Lactic Acid Charles 2.9 H* (0.7-2.0) mmol/L Calcium 9.2 (8.4-10.2) mg/dL Total Bilirubin 1.0 (0.2-1.3) mg/dL AST 33 (17-59) U/L ALT 15 (4-49) U/L Alkaline Phosphatase 92 (38-126) U/L Troponin I (0.000-0.034) ng/mL Total Protein 7.0 (6.3-8.2) g/dL Albumin 4.1 (3.5-5.0) g/dL Urine Color Yellow Urine Appearance Clear (Clear) Urine pH 6.5 (5.0-8.0) Ur Specific [place] 1.028 (1.001-1.035) Urine Protein Negative (Negative) Urine Glucose (UA) Negative (Negative) Urine Ketones Negative (Negative) Urine Blood Negative (Negative) Urine Nitrite Negative (Negative) Urine Bilirubin Negative (Negative) Urine Urobilinogen <2.0 (<2.0) mg/dL Ur Leukocyte Esterase Negative (Negative) Urine Opiates Screen Not Detected (NotDetected) Ur Oxycodone Screen Not Detected (NotDetected) Urine Methadone Screen Not Detected (NotDetected) Ur Propoxyphene Screen Not Detected (NotDetected) Ur Barbiturates Screen Not Detected (NotDetected) U Tricyclic Antidepress Not Detected (NotDetected) Ur Phencyclidine Scrn Not Detected (NotDetected) Ur Amphetamines Screen Not Detected (NotDetected) U Methamphetamines Scrn Not Detected (NotDetected) U Benzodiazepines Scrn Not Detected (NotDetected) Urine Cocaine Screen Not Detected (NotDetected) U Marijuana (THC) Screen Not Detected (NotDetected) 11/05/21 11/05/21 11/05/21 Range/Units 17:42 18:07 20:20 WBC (3.8-10.6) k/uL RBC (4.30-5.90) m/uL Hgb (13.0-17.5) gm/dL Hct (39.0-53.0) % MCV (80.0-100.0) fL MCH (25.0-35.0) pg MCHC (31.0-37.0) g/dL RDW (11.5-15.5) % Plt Count (150-450) k/uL MPV Neutrophils % % Lymphocytes % % Monocytes % % Eosinophils % % Basophils % % Neutrophils # (1.3-7.7) k/uL Lymphocytes # (1.0-4.8) k/uL Monocytes # (0-1.0) k/uL Eosinophils # (0-0.7) k/uL Basophils # (0-0.2) k/uL PT (9.0-12.0) sec INR (<1.2) APTT (22.0-30.0) sec Sodium (137-145) mmol/L Potassium (3.5-5.1) mmol/L Chloride (98-107) mmol/L Carbon Dioxide (22-30) mmol/L Anion Gap mmol/L BUN (9-20) mg/dL Creatinine (0.66-1.25) mg/dL Est GFR (CKD-EPI)AfAm (>60 ml/min/1.73 sqM) Est GFR (CKD-EPI)NonAf (>60 ml/min/1.73 sqM) Glucose (74-99) mg/dL POC Glucose (mg/dL) (75-99) mg/dL POC Glu Laboratory Asst ID Lactic Ac Sepsis Rflx Y Plasma Lactic Acid Charles 1.3 (0.7-2.0) mmol/L Calcium (8.4-10.2) mg/dL Total Bilirubin (0.2-1.3) mg/dL AST (17-59) U/L ALT (4-49) U/L Alkaline Phosphatase (38-126) U/L Troponin I <0.012 (0.000-0.034) ng/mL Total Protein (6.3-8.2) g/dL Albumin (3.5-5.0) g/dL Urine Color Urine Appearance (Clear) Urine pH (5.0-8.0) Ur Specific [place] (1.001-1.035) Urine Protein (Negative) Urine Glucose (UA) (Negative) Urine Ketones (Negative) Urine Blood (Negative) Urine Nitrite (Negative) Urine Bilirubin (Negative) Urine Urobilinogen (<2.0) mg/dL Ur Leukocyte Esterase (Negative) Urine Opiates Screen (NotDetected) Ur Oxycodone Screen (NotDetected) Urine Methadone Screen (NotDetected) Ur Propoxyphene Screen (NotDetected) Ur Barbiturates Screen (NotDetected) U Tricyclic Antidepress (NotDetected) Ur Phencyclidine Scrn (NotDetected) Ur Amphetamines Screen (NotDetected) U Methamphetamines Scrn (NotDetected) U Benzodiazepines Scrn (NotDetected) Urine Cocaine Screen (NotDetected) U Marijuana (THC) Screen (NotDetected) Disposition Clinical Impression: Constipation Disposition: HOME SELF-CARE Condition: Good Instructions (If sedation given, give patient instructions): Constipation (ED) Is patient prescribed a controlled substance at d/c from ED?: No Referrals: Ekaterina Ngo MD [Primary Care Provider] - 1-2 days Time of Disposition: 21:16
--- NOTE | 2021-11-05 19:06 | XR ---
EXAMINATION: XR chest 4 VIEWS DATE AND TIME: 11/05/2021 6:54 PM CLINICAL INDICATION: PHH; altered mental status TECHNIQUE: 2 frontal views and 2 lateral views to cover the anatomy COMPARISON: 09/28/2021 FINDINGS: The lungs demonstrate hyperinflation bilaterally. The lungs are bilaterally clear. The pleural spaces are negative. The cardiac silhouette is not enlarged. The remainder of the mediastinal silhouette is unremarkable. The skeletal structures and soft tissues are negative for acute findings. IMPRESSION: NO ACUTE PROCESS.
[2021-11-05] MEDS ORDERED: ACETAMINOPHEN TAB 500 MG TAB PO STA (20:12)
[2021-11-05] MEDS ORDERED: NA PHOS,M-B/NA PHOS,DI-BA 133 ML ENEMA RECTAL STA (20:13)
--- NOTE | 2021-11-05 20:27 | XR ---
EXAMINATION TYPE: XR KUB 2 SUPINE VIEWS DATE OF EXAM: 11/05/2021 7:54 PM CLINICAL HISTORY: Constipation TECHNIQUE: 2 SUPINE VIEWS COMPARISON: None. FINDINGS: Scattered gas is seen in non-distended small bowel loops. Gas and fecal material is seen in non-distended colon. There is no visceromegaly, pneumoperitoneum, or abnormal calcification apprecia sarika. The lung bases are clear and the osseous structures are intact. IMPRESSION: No acute radiographic process.
[2021-11-05 21:35] VITALS: BP 140/92
== END 2021-11-05 21:35 | disposition home or self-care (01) ==
LOC: EC 16:55
DX: K59.00 Constipation, unspecified (principal); I10 Essential (primary) hypertension; I25.10 Atherosclerotic heart disease of native coronary artery without angina pectoris; J44.9 Chronic obstructive pulmonary disease, unspecified; E78.5 Hyperlipidemia, unspecified; F03.90 Unspecified dementia, unspecified severity, without behavioral disturbance, psychotic disturbance, mood disturbance, and anxiety; E03.9 Hypothyroidism, unspecified; Z87.891 Personal history of nicotine dependence; Z79.890 Hormone replacement therapy; Z79.82 Long term (current) use of aspirin; Z79.899 Other long term (current) drug therapy
CPT/HCPCS: 36415; 71046; 74018; 80053; 80306; 81003; 83605; 84484; 85025; 85610; 85730; 87040; 93005; 99285

== ENCOUNTER 2021-11-06 19:35 | Inpatient (IN) | payer MEDICARE ==
--- NOTE | 2021-11-06 21:58 | ED ---
Male Urogenital HPI - General Chief complaint: Urogenital Stated complaint: Male UG Time Seen by Provider: 11/06/21 21:54 Source: patient, RN notes reviewed, old records reviewed Mode of arrival: ambulatory Limitations: no limitations - History of Present Illness Initial comments: This is an 17-year-old male DF for evaluation. Patient presents today for evaluation by family, patient is having significant testicular and groin pain. Patient has severe dementia unable to provide history history obtained from family family noticed significant swelling when he went to the bathroom today. States he was in the ER yesterday with a cane with straight catheter believes that this is all result of getting a catheterization Yesterday. Patient has a long complex medical history MD Complaint: testicle swelling, penile discharge, genital injury -: days(s) Location: penis Radiation: none Severity: moderate Severity scale (1-10): 6 Quality: sharp Consistency: constant Improves with: none Worsens with: none indwelling catheter (Patient had a straight catheterization yesterday) Reports: discharge, swelling - Related Data Home Medications Medication Instructions Recorded Confirmed Levothyroxine Sodium [Synthroid] 50 mcg PO DAILY 05/31/19 11/05/21 atenoloL [Tenormin] 25 mg PO BID 01/07/20 11/05/21 Mirtazapine 15 mg PO HS 03/18/20 11/05/21 Aspirin 325 mg PO DAILY 09/04/20 11/05/21 Nitroglycerin Sl Tabs [Nitrostat] 0.4 mg SL Q5M PRN 09/28/21 11/05/21 Psyllium Husk 100% [Metamucil 6 gm PO DAILY 11/05/21 11/05/21 Packet] Sennosides/Docusate Sodium [Senna 1 cap PO HS 11/05/21 11/05/21 Plus 8.6-50 mg Softgel] Allergies Allergy/AdvReac Type Severity Reaction Status Date / Time No Known Allergies Allergy Verified 11/06/21 23:01 Review of Systems ROS Statement: Those systems with pertinent positive or pertinent negative responses have been documented in the HPI. ROS Other: All systems not noted in ROS Statement are negative. Past Medical History Past Medical History: Coronary Artery Disease (CAD), Cancer, Chest Pain / Angina, COPD, Dementia, Hyperlipidemia, Hypertension, Memory Impairment, Pne umonia, Respiratory Disorder, Thyroid Disorder, Vascular Disorder Additional Past Medical History / Comment(s): Chronic type B aortic dissection, colon cancer twice with surgery, laryngeal cancer with surgery/radiation, stable pulmonary nodules, SOB with minimal exertion, hypothyroid. History of Any Multi-Drug Resistant Organisms: None Reported Past Surgical History: Appendectomy, Bowel Resection, Heart Catheterization Additional Past Surgical History / Comment(s): Bowel resection x2, surgery for laryngeal cancer, colonoscopies/polypectomy, hemorrhoidectomy. Past Anesthesia/Blood Transfusion Reactions: No Reported Reaction Past Psychological History: No Psychological Hx Reported Smoking Status: Former smoker Past Alcohol Use History: None Reported Past Drug Use History: None Reported - Past Family History Brother(s) Family Medical History: Cancer Additional Family Medical History / Comment(s): The patient has 2 brothers and one from bone cancer with metastatic disease, one from COPD. Father Additional Family Medical History / Comment(s): Father at age 82 from myocardial infarction. Mother Family Medical History: COPD Additional Family Medical History / Comment(s): Mother at age 70 from COPD. Sister(s) Family Medical History: COPD Additional Family Medical History / Comment(s): Patient has 1 sister that from COPD. Patient has one son that - he was hit by a truck. Patient had a total of 2 boys and 2 girls. General Exam - General Exam Comments Initial Comments: Patient does have a paraphimosis, not reducible here in the ER Limitations: no limitations General appearance: alert, in no apparent distress Head exam: Present: atraumatic, normocephalic, normal inspection Eye exam: Present: normal appearance, PERRL, EOMI. Absent: scleral icterus, conjunctival injection, periorbital swelling ENT exam: Present: normal exam, mucous membranes moist Neck exam: Present: normal inspection. Absent: tenderness, meningismus, lymphadenopathy Respiratory exam: Present: normal lung sounds bilaterally. Absent: respiratory distress, wheezes, rales, rhonchi, stridor Cardiovascular Exam: Present: regular rate, normal rhythm, normal heart sounds. Absent: systolic murmur, diastolic murmur, rubs, gallop, clicks GI/Abdominal exam: Present: soft, normal bowel sounds. Absent: distended, tenderness, guarding, rebound, rigid Extremities exam: Present: normal inspection, full ROM, normal capillary refill. Absent: tenderness, pedal edema, joint swelling, calf tenderness Back exam: Present: normal inspection Neurological exam: Present: alert, oriented X3, CN II-XII intact Psychiatric exam: Present: normal affect, normal mood Skin exam: Present: warm, dry, intact, normal color. Absent: rash Course Vital Signs 11/06/21 11/06/21 19:53 22:13 Temperature 98.2 F Pulse Rate 70 79 Respiratory 18 18 Rate Blood Pressure 117/75 136/81 O2 Sat by Pulse 97 96 Oximetry - Reevaluation(s) Reevaluation #1: 11/06/21 23:28 Medical record is reviewed Reevaluation #2: 11/06/21 23:28 Patient family informed of results and questions answered Reevaluation #3: 11/06/21 23:28 Unable to reduce paraphimosis manually here in the ER Medical Decision Making - Medical Decision Making 81 male to the ER for evaluation. Patient does, severe dementia scrotal pain. Patient does have paraphimosis. Likely glans infection was purulent drainage - EKG Data -: EKG Interpreted by Me (EKG is sinus rhythm 68 SC 125 QRS 87 QTC 327) Disposition Clinical Impression: Paraphimosis, Weakness Narrative: Penile Glans Infection, Cellulitis Disposition: ADMITTED IP TO THIS HOSP Condition: Good Is patient prescribed a controlled substance at d/c from ED?: No Referrals: Ekaterina Ngo MD [Primary Care Provider] - 1-2 days
[2021-11-06] MEDS ORDERED: MORPHINE SULFATE 4 MG/ML SYRINGE IV STA (22:37)
[2021-11-06] MEDS ORDERED: SODIUM CHLORIDE 0.9% 1,000 ML IV STA (22:37)
[2021-11-06] MEDS ORDERED: DEXTROSE 50% SYRINGE 50 ML IVP STA (22:40)
[2021-11-06 23:42] LABS: Basophils # (A) 0.1 k/uL (0-0.2); Basophils % (A) 1 %; Eosinophils # (A) 0.2 k/uL (0-0.7); Eosinophils % (A) 2 %; HCT 46.1 % (39.0-53.0); HGB 14.5 gm/dL (13.0-17.5); Lymphocytes # (A) 1.1 k/uL (1.0-4.8); Lymphocytes % (A) 13 %; MCH 29.7 pg (25.0-35.0); MCHC 31.6 g/dL (31.0-37.0); MCV 94.1 fL (80.0-100.0); Mean Platelet Volume 7.7; Monocytes # (A) 0.5 k/uL (0-1.0); Monocytes % (A) 5 %; Neutrophils # (A) 6.9 k/uL (1.3-7.7); Neutrophils % (A) 77 %; Platelet Count 256 k/uL (150-450); RDW 12.7 % (11.5-15.5)
[2021-11-06 23:53] LABS: Albumin 3.9 g/dL (3.5-5.0); Calcium 9.2 mg/dL (8.4-10.2); Magnesium 2.1 mg/dL (1.6-2.3); Potassium 3.7 mmol/L (3.5-5.1); Total Bilirubin 0.7 mg/dL (0.2-1.3); Total Protein 6.6 g/dL (6.3-8.2)
[2021-11-06] MEDS: MUPIROCIN 2% OINT 22 GM TUBE TOPICAL SCH (23:54)
[2021-11-07] MEDS ORDERED: MORPHINE SULFATE 4 MG/ML SYRINGE IVP STA (00:46)
[2021-11-07] MEDS ORDERED: LEVOFLOXACIN 500MG-D5W PMX 500 MG in DEXTROSE/WATER 1 100ML.BAG IVPB ONE (10:00)
[2021-11-07] MEDS ORDERED: LEVOFLOXACIN 500MG-D5W PMX 500 MG in DEXTROSE/WATER 1 100ML.BAG IVPB SCH (10:00)
[2021-11-07] MEDS: MORPHINE SULFATE 4 MG/ML SYRINGE IVP PRN ×3 (10:20→20:00)
[2021-11-07] MEDS: LEVOTHYROXINE 50 MCG TAB PO SCH (11:26)
[2021-11-07] MEDS: ASPIRIN 325 MG TAB PO SCH (11:26)
[2021-11-07] MEDS: atenoloL 25 MG TAB PO SCH ×2 (11:26→20:02)
--- NOTE | 2021-11-07 11:28 | P.GSCN ---
History of Present Illness Consult date: 11/07/21 Reason for Consult: Urinary retention History of present illness: This is an 81-year-old male presented to the hospital with paraphimosis and d ifficulty voiding. He was recently in the ER for urinary retention, required straight cath. But presented to the ER yesterday with paraphimosis and penile pain. Patient is a poor historian, but according to the patient he has not voided since . He was having severe pain at his glans, the emergency department attempted to reduce his paraphimosis but were unable to. His PVR today was greater than 310 mL's Review of Systems ROS unobtainable: due to mental status Past Medical History Past Medical History: Coronary Artery Disease (CAD), Cancer, Chest Pain / Angina, COPD, Dementia, Hyperlipidemia, Hypertension, Memory Impairment, Pneumonia, Respiratory Disorder, Thyroid Disorder, Vascular Disorder Additional Past Medical History / Comment(s): Chronic type B aortic dissection, colon cancer twice with surgery, laryngeal cancer with surgery/radiation, stable pulmonary nodules, SOB with minimal exertion, hypothyroid. History of Any Multi-Drug Resistant Organisms: None Reported Past Surgical History: Appendectomy, Bowel Resection, Heart Catheterization Additional Past Surgical History / Comment(s): Bowel resection x2, surgery for laryngeal cancer, colonoscopies/polypectomy, hemorrhoidectomy. Past Anesthesia/Blood Transfusion Reactions: No Reported Reaction Past Psychological History: No Psychological Hx Reported Additional Psychological History / Comment(s): Pt resides with his spouse of 63 yrs. Spouse is pt's caregiver. Pt uses no assistive device, helps SBA. He is continent of urine and stool. Pt is able to feed himself once set up. Smoking Status: Former smoker Past Alcohol Use History: None Reported Additional Past Alcohol Use History / Comment(s): Pt started smoking in 2 and quit around 1991. He used to drink alcohol but has not for many years. Past Drug Use History: None Reported - Past Family History Brother(s) Family Medical History: Cancer Additional Family Medical History / Comment(s): The patient has 2 brothers and one from bone cancer with metastatic disease, one from COPD. Father Additional Family Medical History / Comment(s): Father at age 82 from m yocardial infarction. Mother Family Medical History: COPD Additional Family Medical History / Comment(s): Mother at age 70 from COPD. Sister(s) Family Medical History: COPD Additional Family Medical History / Comment(s): Patient has 1 sister that from COPD. Patient has one son that - he was hit by a truck. Patient had a total of 2 boys and 2 girls. Medications and Allergies Home Medications Medication Instructions Recorded Confirmed Type Levothyroxine Sodium [Synthroid] 50 mcg PO DAILY 05/31/19 11/05/21 History atenoloL [Tenormin] 25 mg PO BID 01/07/20 11/05/21 History Mirtazapine 7.5 mg PO HS 03/18/20 11/05/21 History Aspirin 325 mg PO DAILY 09/04/20 11/05/21 History Nitroglycerin Sl Tabs [Nitrostat] 0.4 mg SL Q5M PRN 09/28/21 11/05/21 History Psyllium Husk 100% [Metamucil 6 gm PO DAILY 11/05/21 11/05/21 History Packet] Sennosides/Docusate Sodium [Senna 1 cap PO HS 11/05/21 11/05/21 History Plus 8.6-50 mg Softgel] Allergies Allergy/AdvReac Type Severity Reaction Status Date / Time No Known Allergies Allergy Verified 11/06/21 23:01 Surgical - Exam Vital Signs Temp Pulse Resp BP Pulse Ox 98.2 F 70 18 117/75 97 11/06/21 19:53 11/06/21 19:53 11/06/21 19:53 11/06/21 19:53 11/06/21 19:53 - General no distress, moderate pain - ENT normal nares, normal mucosa - Respiratory normal expansion, normal respiratory effort - Abdomen Abdomen: soft, non tender - Genitourinary Positive for paraphimosis, and erythema and the glans - Psychiatric Patient confused Results - Labs 11/06/21 22:52 11/06/21 22:52 Diabetes panel 11/06/21 Range/Units 22:52 Sodium 142 (137-145) mmol/L Potassium 3.7 (3.5-5.1) mmol/L Chloride 107 (98-107) mmol/L Carbon Dioxide 26 (22-30) mmol/L BUN 17 (9-20) mg/dL Creatinine 0.97 (0.66-1.25) mg/dL Glucose 90 (74-99) mg/dL Calcium 9.2 (8.4-10.2) mg/dL AST 29 (17-59) U/L ALT 15 (4-49) U/L Alkaline Phosphatase 81 (38-126) U/L Total Protein 6.6 (6.3-8.2) g/dL Albumin 3.9 (3.5-5.0) g/dL Calcium panel 11/06/21 Range/Units 22:52 Calcium 9.2 (8.4-10.2) mg/dL Phosphorus 3.0 (2.5-4.5) mg/dL Albumin 3.9 (3.5-5.0) g/dL Pituitary panel 11/06/21 Range/Units 22:52 Sodium 142 (137-145) mmol/L Potassium 3.7 (3.5-5.1) mmol/L Chloride 107 (98-107) mmol/L Carbon Dioxide 26 (22-30) mmol/L BUN 17 (9-20) mg/dL Creatinine 0.97 (0.66-1.25) mg/dL Glucose 90 (74-99) mg/dL Calcium 9.2 (8.4-10.2) mg/dL Adrenal panel 11/06/21 Range/Units 22:52 Sodium 142 (137-145) mmol/L Potassium 3.7 (3.5-5.1) mmol/L Chloride 107 (98-107) mmol/L Carbon Dioxide 26 (22-30) mmol/L BUN 17 (9-20) mg/dL Creatinine 0.97 (0.66-1.25) mg/dL Glucose 90 (74-99) mg/dL Calcium 9.2 (8.4-10.2) mg/dL Total Bilirubin 0.7 (0.2-1.3) mg/dL AST 29 (17-59) U/L ALT 15 (4-49) U/L Alkaline Phosphatase 81 (38-126) U/L Total Protein 6.6 (6.3-8.2) g/dL Albumin 3.9 (3.5-5.0) g/dL Assessment and Plan Assessment: 81-year-old male admitted to the hospital with urinary retention and paraphimosis. His postvoid residuals greater than 310 mL 1. Paraphimosis -I was able to reduce the paraphimosis and bedside. 2.Urinary retention -Place a Cervantes cathete, Cervantes can stay in for 1 week, can follow-up as an outp atient for trial of void -Start patient on Flomax
--- NOTE | 2021-11-07 11:37 | P.HPIM ---
History of Present Illness H&P Date: 11/07/21 History of present illness this is an 81-year-old patient with a past medical history significant for Alzheimer's dementia, laryngeal cancer with surgery and radiation, colon cancer with bowel resection, chronic type B aortic dissection monitored by cardiology, hypothyroidism, coronary artery disease, hyperlipidemia, hypertension, patient is a former smoker quit in 1991. patient admitted to the emergency room 2 days ago for altered mental status way stated that he had been constipated since Tuesday and hasn't urinated since the day before. Patient was straight cath dur ing the ER visit and subsequently sent home. yesterday patient developed increased redness and swelling to the tip of his penis. He became more combative with his . Patient has testicular swelling penile discharge and redness to the penis. At this time patient is found resting in bed. He refuses examiner to assess penis. Was able to see the penis from a pitcher that the has at the [facility]. The glans is edematous with erythema and purulent drainage. Patient still has not had a bowel movement. And no urinary output per the . Patient did not sleep well last night. He did finally fall asleep early this morning. has been at the bedside. 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 Due to patient's debility is unable to manage at home. patient remained afebrile, heart rate 72, respirations 16, blood pressure 1 4792, pulse ox 93% on room air. WBC 9.0, hemoglobin 14.5, platelets 256, potassium 3.7,B UN 17, creatinine 0.97. urinalysis is unremarkable. His PVR was greater the 310ml Review Of Systems: unable to obtain due to mental status Social history: patient lives with of 63 years, is the primary caregiver. she uses no assisted device, helps SBA. Patient is continent of urine and stool. He is able to feed himself once he sat up. Family history: patient has 2 brothers one from bone cancer with metastatic disease, one from COPD. Father at 82 from myocardial infarction. Mother at 70 from COPD. One sister from COPD, patient has one son that by a motor vehicle accident. Patient had a total of 2 boys and 2 girls all other children healthy. Physical examination General Appearance: Alert, cooperative, no distress, appears stated age. Neck HEENT: Supple, no lymphadenopathy, no thyroid enlargement, no carotid br uits. Lungs: Clear to auscultation without crackles or wheezes no rhonchi, no deformity. Chest Wall: Chest wall normal expansion with deep inspiration no tenderness and no deformity was found on exam, no costochondral pain or discomfort. Heart: Regular rate and rhythm, S1, S2 normal, no murmur, rub or gallop. Back: Symmetric, no curvature, ROM normal, no CVA tenderness. Abdomen: Soft, non-tender, no rebound or rigidity, no hepatosplenomegaly. Extremities: Extremities normal, atraumatic, no cyanosis or edema. Pulses: 2+ and symmetric. Skin: paraphimosis and glans erythemic and edematous. With purulent drainage. Skin color, texture, tugor normal, no rashes or lesions. Neurologic: Alert oriented x1 Assessment and plan 1. Paraphimosis and dysuria: obtain urinalysis with reflex to urine culture, bladder scan, consult urology 2. Balanitis: urology consult appreciated, Levaquin 250 mg daily, Mupirocin triamcinolone 3. Constipation: Senokot-s 1 tab BID. 4. Debility: Consult PT/OT, SW for possible subacute rehab. 5. History of severe Alzheimer's dementia. Remeron 7.5 mg by mouth at bedtime 6. Abdominal aortic aneurysm which is being watched by cardiology. 7. History of coronary artery disease. continue with aspirin, atenolol 25 mg by mouth twice a day, 8. History of throat cancer status post radiation. Remission. 9. History of colon cancer status post bowel resection. Remission. 10. Hypothyroidism. No medications at this time. 11. Remote history of tobacco use. Stable 12. DVT prophylaxis. Heparin subcu every 12 hours. 13. GI prophylaxis. Protonix 40 mg daily. Discharge plan: More than likely subacute rehab. PTOT and social work consult. Patient be admitted for minimum 2 nights day. Impression and plan of care have been directed as dictated by the signing physician. Anahy Mauricio nurse practitioner acting as scribe for signing physician. Past Medical History Past Medical History: Coronary Artery Disease (CAD), Cancer, Chest Pain / Angina, COPD, Dementia, Hyperlipidemia, Hypertension, Memory Impairment, Pneumonia, Respiratory Disorder, Thyroid Disorder, Vascular Disorder Additional Past Medical History / Comment(s): Chronic type B aortic dissection, colon cancer twice with surgery, laryngeal cancer with surgery/radiation, stable pulmonary nodules, SOB with minimal exertion, hypothyroid. History of Any Multi-Drug Resistant Organisms: None Reported Past Surgical History: Appendectomy, Bowel Resection, Heart Catheterization Additional Past Surgical History / Comment(s): Bowel resection x2, surgery for laryngeal cancer, colonoscopies/polypectomy, hemorrhoidectomy. Past Anesthesia/Blood Transfusion Reactions: No Reported Reaction Past Psychological History: No Psychological Hx Reported Additional Psychological History / Comment(s): Pt resides with his spouse of 63 yrs. Spouse is pt's caregiver. Pt uses no assistive device, helps SBA. He is continent of urine and stool. Pt is able to feed himself once set up. Smoking Status: Former smoker Past Alcohol Use History: None Reported Additional Past Alcohol Use History / Comment(s): Pt started smoking in 1952 and quit around 1991. He used to drink alcohol but has not for many years. Past Drug Use History: None Reported - Past Family History Brother(s) Family Medical History: Cancer Additional Family Medical History / Comment(s): The patient has 2 brothers and one from bone cancer with metastatic disease, one from COPD. Father Additional Family Medical History / Comment(s): Father at age 82 from myocardial infarction. Mother Family Medical History: COPD Additional Family Medical History / Comment(s): Mother at age 70 from COPD. Sister(s) Family Medical History: COPD Additional Family Medical History / Comment(s): Patient has 1 sister that from COPD. Patient has one son that - he was hit by a truck. Patient had a total of 2 boys and 2 girls. Medications and Allergies Home Medications Medication Instructions Recorded Confirmed Type Levothyroxine Sodium [Synthroid] 50 mcg PO DAILY 05/31/19 11/05/21 History atenoloL [Tenormin] 25 mg PO BID 01/07/20 11/05/21 History Mirtazapine 7.5 mg PO HS 03/18/20 11/05/21 History Aspirin 325 mg PO DAILY 09/04/20 11/05/21 History Nitroglycerin Sl Tabs [Nitrostat] 0.4 mg SL Q5M PRN 09/28/21 11/05/21 History Psyllium Husk 100% [Metamucil 6 gm PO DAILY 11/05/21 11/05/21 History Packet] Sennosides/Docusate Sodium [Senna 1 cap PO HS 11/05/21 11/05/21 History Plus 8.6-50 mg Softgel] Allergies Allergy/AdvReac Type Severity Reaction Status Date / Time No Known Allergies Allergy Verified 11/06/21 23:01 Physical Exam Vitals: Vital Signs Temp Pulse Pulse Resp BP BP Pulse Ox 11/07/21 06:31 69 18 147/92 93 L 11/07/21 01:34 86 18 137/76 11/07/21 00:00 72 14 99 11/06/21 23:39 68 12 99 11/06/21 22:13 79 18 136/81 96 11/06/21 19:53 98.2 F 70 18 117/75 97 Intake and Output 11/06/21 11/07/21 11/07/21 22:59 06:59 14:59 Intake Total 0 Output Total 94 Balance 0 -94 Intake: Oral 0 Output: Post Void Residual 94 Other: # Voids 0 Weight 46.266 kg 46.266 kg Results CBC & Chem 7: 11/06/21 22:52 11/06/21 22:52 Thrombosis Risk Factor Assmnt - Choose All That Apply Each Factor Represents 1 point: Abnormal pulmonary function (COPD) Each Risk Factor Represents 3 Points: Age 75 years or older Other congenital or acquired thrombophilia - If yes, enter type in comment: No Thrombosis Risk Factor Assessment Total Risk Factor Score: 4 Thrombosis Risk Factor Assessment Level: Moderate Risk
[2021-11-07] MEDS: TRIAMCINOLONE 0.1% CREAM 80 GM TUBE TOPICAL SCH ×2 (11:39→20:02)
[2021-11-07] MEDS: MUPIROCIN 2% OINT 22 GM TUBE TOPICAL SCH ×3 (11:47→20:02)
[2021-11-07] MEDS: TAMSULOSIN 0.4 MG CAP.ER.24H PO SCH (11:50)
--- NOTE | 2021-11-07 15:24 | XR ---
EXAMINATION TYPE: XR abdomen 1V DATE OF EXAM: 11/07/2021 COMPARISON: 11/05/2021 HISTORY: Abdominal pain TECHNIQUE: 2 view supine FINDINGS: There is no sign of intestinal obstruction or pneumoperitoneum. Fecal pattern is normal. Zuly ng bases are clear. There is spurring in the thoracic and lumbar spine. No compression fracture. No c alcification seen over the kidneys. IMPRESSION: Nonacute abdomen. No adverse change.
[2021-11-07 17:04] LABS: Appearance,Urine Clear (Clear); Bilirubin,Urine Negative (Negative); Blood,Urine Negative (Negative); Color,Urine Yellow; Glucose,Urine (UA) Negative (Negative); Ketones,Urine Negative (Negative); Leukocyte Esterase,Urine Negative (Negative); Nitrite,Urine Negative (Negative); Protein,Urine Negative (Negative); Specific Gravity,Urine 1.026 (1.001-1.035); Urobilinogen,Urine <2.0 mg/dL (<2.0)
[2021-11-07] MEDS: HEPARIN SODIUM,PORCINE/PF 5,000 UNIT/0.5 ML SYRINGE SQ SCH (20:01)
[2021-11-07] MEDS: SENNOSIDES-DOCUSATE SODIUM 1 EACH TAB PO SCH (20:02)
[2021-11-07] MEDS ORDERED: MIRTAZAPINE 15 MG TAB PO SCH (21:00)
[2021-11-07] MEDS ORDERED: SENNOSIDES-DOCUSATE SODIUM 1 EACH TAB PO SCH (21:00)
[2021-11-08] MEDS: MORPHINE SULFATE 4 MG/ML SYRINGE IVP PRN ×4 (07:10→20:25)
[2021-11-08] MEDS: LEVOTHYROXINE 50 MCG TAB PO SCH (07:57)
[2021-11-08] MEDS: PANTOPRAZOLE 40 MG TABLET PO SCH (08:56)
[2021-11-08] MEDS: atenoloL 25 MG TAB PO SCH ×2 (08:56→20:22)
[2021-11-08] MEDS: SENNOSIDES-DOCUSATE SODIUM 1 EACH TAB PO SCH ×2 (08:57→20:22)
[2021-11-08] MEDS: ASPIRIN 325 MG TAB PO SCH (08:57)
[2021-11-08] MEDS: TAMSULOSIN 0.4 MG CAP.ER.24H PO SCH (08:57)
[2021-11-08] MEDS: MUPIROCIN 2% OINT 22 GM TUBE TOPICAL SCH ×3 (08:57→20:23)
[2021-11-08] MEDS: TRIAMCINOLONE 0.1% CREAM 80 GM TUBE TOPICAL SCH ×2 (08:57→20:23)
[2021-11-08] MEDS ORDERED: LEVOFLOXACIN 250MG-D5W PMX 250 MG in DEXTROSE/WATER 1 50ML.BAG IVPB SCH (09:00)
[2021-11-08] MEDS ORDERED: ALPRAZolam 0.25 MG TAB PO PRN (09:04)
[2021-11-08] MEDS: HEPARIN SODIUM,PORCINE/PF 5,000 UNIT/0.5 ML SYRINGE SQ SCH ×2 (09:04→20:22)
--- NOTE | 2021-11-08 10:43 | P.PN ---
Subjective Progress Note Date: 11/08/21 History of present illness this is an 81-year-old patient with a past medical history significant for Alzheimer's dementia, laryngeal cancer with surgery and radiation, colon cancer with bowel resection, chronic type B aortic dissection monitored by cardiology, hypothyroidism, coronary artery disease, hyperlipidemia, hypertension, patient is a former smoker quit in 1991. patient admitted to the emergency room 2 days ago for altered mental status way stated that he had been constipated since Tuesday and hasn't urinated since the day before. Patient was straight cath during the ER visit and subsequently sent home. yesterday patient developed increased redness and swelling to the tip of his penis. He became more combative with his . Patient has testicular swelling penile discharge and redness to the penis. At this time patient is found resting in bed. He refuses examiner to assess penis. Was able to see the penis from a pitcher that the has at the bedside. The glans is edematous with erythema and purulent drainage. Patient still has not had a bowel movement. And no urinary output per the . Patient did not sleep well last night. He did finally fall asleep early this morning. has been at the bedside. 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 Due to p king's debility is unable to manage at home. patient remained afebrile, heart rate 72, respirations 16, blood pressure 1 4792, pulse ox 93% on room air. WBC 9.0, hemoglobin 14.5, platelets 256, potassium 3.7,B UN 17, creatinine 0.97. urinalysis is unremarkable. His PVR was greater the 310ml 11/08: Patient is found sleeping. is at the bedside. Patient has indwelling catheter in place with clear output. Per the nurse patient slept well during the evening had one episode of attempting to get out of bed in the morning however he was able to be redirected. Plan for patient to be admitted to [facility] for subacute rehab. Social work, PT/OT consult and place. Patient will be started on Xanax 0.25 daily as needed for agitation. Patient is afebrile, pulse rate 91, respirations 18 blood pressure 143/83 pulse ox 93% on room air. Review Of Systems: unable to obtain due to mental status Physical examination General Appearance: Alert, cooperative, no distress, appears stated age. Neck HEENT: Supple, no lymphadenopathy, no thyroid enlargement, no carotid bruits. Lungs: Clear to auscultation without crackles or wheezes no rhonchi, no deformity. Chest Wall: Chest wall normal expansion with deep inspiration no tenderness and no deformity was found on exam, no costochondral pain or discomfort. Heart: Regular rate and rhythm, S1, S2 normal, no murmur, rub or gallop. Back: Symmetric, no curvature, ROM normal, no CVA tenderness. Abdomen: Soft, non-tender, no rebound or rigidity, no hepatosplenomegaly. Extremities: Extremities normal, atraumatic, no cyanosis or edema. Pulses: 2+ and symmetric. Skin: paraphimosis and glans erythemic and edematous. With purulent drainage. Skin color, texture, tugor normal, no rashes or lesions. Neurologic: Alert oriented x1 Assessment and plan 1. Paraphimosis and dysuria: Urinalysis unremarkable, urology consult is appreciated, indwelling catheter in place to leave in for 1 week. 2. Balanitis: urology consult appreciated, Levaquin 250 mg daily, Mupirocin tr iamcinolone 3. Constipation: Senokot-s 1 tab BID. 4. Debility: Consult PT/OT, SW for possible subacute rehab. 5. History of severe Alzheimer's dementia. Remeron 7.5 mg by mouth at bedtime 6. Abdominal aortic aneurysm which is being watched by cardiology. 7. History of coronary artery disease. continue with aspirin, atenolol 25 mg by mouth twice a day, 8. History of throat cancer status post radiation. Remission. 9. History of colon cancer status post bowel resection. Remission. 10. Hypothyroidism. No medications at this time. 11. Remote history of tobacco use. Stable 12. DVT prophylaxis. Heparin subcu every 12 hours. 13. GI prophylaxis. Protonix 40 mg daily. Discharge plan: More than likely subacute rehab Tuesday/tuesday. PT/OT and social work consult. Patient be admitted for minimum 2 nights day. Impression and plan of care have been directed as dictated by the signing physician. Anahy Mauricio nurse practitioner acting as scribe for signing Objective - Vital Signs Vital signs: Vital Signs Temp 97.8 F 11/07/21 11:50 Pulse 91 11/07/21 11:50 Resp 18 11/07/21 11:50 BP 143/83 11/07/21 11:50 Pulse Ox 93 L 11/07/21 11:50 Intake & Output 11/07/21 11/08/21 11/08/21 18:59 06:59 18:59 Intake Total 1560 Output Total 444 750 Balance 1116 -750 Intake: Intake, IV Titration 1560 Amount Sodium Chloride 0.9% 1, 1560 000 ml @ 130 mls/hr IV . Q7H42M STA Rx#:[id number] Output: Urine 350 750 Post Void Residual 94 Other: Voiding Method Indwelling Catheter - Labs CBC & Chem 7: 11/06/21 22:52 11/06/21 22:52
--- NOTE | 2021-11-08 11:16 | P.PN ---
Subjective Progress Note Date: 11/08/[address], urine is clear, no evidence of recurrence of the paraphimosis Objective - Vital Signs Vital signs: Vital Signs Temp 97.8 F 11/07/21 11:50 Pulse 91 11/07/21 11:50 Resp 18 11/07/21 11:50 BP 143/83 11/07/21 11:50 Pulse Ox 93 L 11/07/21 11:50 Intake & Output 11/07/21 11/08/21 11/08/21 18:59 06:59 18:59 Intake Total 1560 Output Total 444 750 Balance 1116 -750 Intake: Intake, IV Titration 1560 Amount Sodium Chloride 0.9% 1, 1560 000 ml @ 130 mls/hr IV . Q7H42M STA Rx#:[id number] Output: Urine 350 750 Post Void Residual 94 Other: Voiding Method Indwelling Catheter - Gastrointestinal General gastrointestinal: Present: soft. Absent: distended, tenderness - Labs CBC & Chem 7: 11/06/21 22:52 11/06/21 22:52 Assessment and Plan Assessment: 81-year-old male admitted to the hospital with urinary retention and paraphimosis. His postvoid residuals greater than 310 mL -Cervantes can stay in for 1 week, can have his trial of void at [facility]. -continue on Flomax
[2021-11-08] MEDS ORDERED: MIRTAZAPINE 15 MG TAB PO SCH (17:02)
[2021-11-08] MEDS: MIRTAZAPINE 15 MG TAB PO SCH (17:43)
[2021-11-09] MEDS: LEVOTHYROXINE 50 MCG TAB PO SCH (05:32)
--- NOTE | 2021-11-09 07:59 | P.DS ---
Providers Date of admission: 11/06/21 23:30 Expected date of discharge: 11/09/21 Attending physician: Arnaldo Childs Consults: 11/07/21 09:19 Consult Physician Routine Consulting Provider: Bharathi Molina Consult Reason/Comments: dysuria, balanitis Do you want consulting provider notified?: Yes Primary care physician: [facility] Course: History of present illness this is an 81-year-old patient with a past medical history significant for Alzheimer's dementia, laryngeal cancer with surgery and radiation, colon cancer with bowel resection, chronic type B aortic dissection monitored by cardiology, hypothyroidism, coronary artery disease, hyperlipidemia, hypertension, patient is a former smoker quit in 1991. patient admitted to the emergency room 2 days ago for altered mental status way stated that he had been constipated since Tuesday and hasn't urinated since the day before. Patient was straight cath during the ER visit and subsequently sent home. yesterday patient developed increased redness and swelling to the tip of his penis. He became more combative with his . Patient has testicular swelling penile discharge and redness to the penis. At this time patient is found resting in bed. He refuses examiner to assess penis. Was able to see the penis from a pitcher that the has at the bedside. The glans is edematous with erythema and purulent drainage. Patient still has not had a bowel movement. And no urinary output per the . Patient did not sleep well last night. He did finally fall asleep early this morning. has been at the bedside. 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 Due to patient's debility is unable to manage at home. patient remained afebrile, heart rate 72, respirations 16, blood pressure 1 4792, pulse ox 93% on room air. WBC 9.0, hemoglobin 14.5, platelets 256, potassium 3.7,B UN 17, creatinine 0.97. urinalysis is unremarkable. His PVR was greater the 310ml 11/08: Patient is found sleeping. is at the bedside. Patient has indwelling catheter in place with clear output. Per the nurse patient slept well during the evening had one episode of attempting to get out of bed in the morning however he was able to be redirected. Plan for patient to be admitted to [facility] for subacute rehab. Social work, PT/OT consult and place. Patient will be started on Xanax 0.25 daily as needed for agitation. Patient is afebrile, pulse rate 91, respirations 18 blood pressure 143/83 pulse ox 93% on room air. 11/09: Urology has recommended maintaining Cervantes catheter for 1 week and to deb shah trial at [facility], continue Flomax. Patient has been afebrile, heart rate 75, blood pressure 129/82, pulse ox 90-91% on room air. Patient remains confused. Patient will be discharged once arrangements are completed. Discharge diagnoses 1. Paraphimosis and dysuria 2. Balanitis 3. Constipation. 4. Debility. 5. History of severe Alzheimer's dementia. 6. Abdominal aortic aneurysm which is being watched by cardiology. 7. History of coronary artery disease. 8. History of throat cancer status post radiation. Remission. 9. History of colon cancer status post bowel resection. Remission. 10. Hypothyroidism. 11. Remote history of tobacco use. Stable Discharge plan [facility] in the care of Dr. Sheehan Discharge note Impression and plan of care have been directed as dictated by the signing physician. Sofia Goodwin nurse practitioner acting as scribe for signing physician. Patient Condition at Discharge: Good Plan - Discharge Summary Discharge Rx Participant: Yes New Discharge Prescriptions: New Mupirocin 2% Oint [Bactroban 2% Oint] 1 applic TOPICAL TID LORazepam [Ativan] 0.5 mg PO Q6H PRN #16 tab PRN Reason: Agitation Tamsulosin [Flomax] 0.4 mg PO DAILY Triamcinolone 0.1% Cream [Kenalog 0.1% Cream] 1 applic TOPICAL BID cream Continue Levothyroxine Sodium [Synthroid] 50 mcg PO DAILY atenoloL [Tenormin] 25 mg PO BID Mirtazapine 7.5 mg PO HS Aspirin 325 mg PO DAILY Nitroglycerin Sl Tabs [Nitrostat] 0.4 mg SL Q5M PRN PRN Reason: Chest Pain Psyllium Husk 100% [Metamucil Packet] 6 gm PO DAILY Sennosides/Docusate Sodium [Senna Plus 8.6-50 mg Softgel] 1 cap PO HS Discharge Medication List Levothyroxine Sodium [Synthroid] 50 mcg PO DAILY 05/31/19 [History] atenoloL [Tenormin] 25 mg PO BID 01/07/20 [History] Mirtazapine 7.5 mg PO HS 03/18/20 [History] Aspirin 325 mg PO DAILY 09/04/20 [History] Nitroglycerin Sl Tabs [Nitrostat] 0.4 mg SL Q5M PRN 09/28/21 [History] Psyllium Husk 100% [Metamucil Packet] 6 gm PO DAILY 11/05/21 [History] Sennosides/Docusate Sodium [Senna Plus 8.6-50 mg Softgel] 1 cap PO HS 11/05/21 [History] LORazepam [Ativan] 0.5 mg PO Q6H PRN #16 tab 11/09/21 [Rx] Mupirocin 2% Oint [Bactroban 2% Oint] 1 applic TOPICAL TID 11/09/21 [Rx] Tamsulosin [Flomax] 0.4 mg PO DAILY 11/09/21 [Rx] Triamcinolone 0.1% Cream [Kenalog 0.1% Cream] 1 applic TOPICAL BID cream 11/09/21 [Rx] Follow up Appointment(s)/Referral(s): Ekaterina Ngo MD [Primary Care Provider] - 1 Week (at [facility]) Discharge Disposition: TRANSFER TO SNF/ECF
[2021-11-09] MEDS: TAMSULOSIN 0.4 MG CAP.ER.24H PO SCH (08:04)
[2021-11-09] MEDS: HEPARIN SODIUM,PORCINE/PF 5,000 UNIT/0.5 ML SYRINGE SQ SCH ×2 (08:04→19:59)
[2021-11-09] MEDS: atenoloL 25 MG TAB PO SCH ×2 (08:04→19:58)
[2021-11-09] MEDS: ASPIRIN 325 MG TAB PO SCH (08:04)
[2021-11-09] MEDS: SENNOSIDES-DOCUSATE SODIUM 1 EACH TAB PO SCH ×2 (08:04→19:59)
[2021-11-09] MEDS: MUPIROCIN 2% OINT 22 GM TUBE TOPICAL SCH ×3 (08:06→19:59)
[2021-11-09] MEDS: TRIAMCINOLONE 0.1% CREAM 80 GM TUBE TOPICAL SCH ×2 (08:06→19:59)
[2021-11-09] MEDS: PANTOPRAZOLE 40 MG TABLET PO SCH (08:06)
--- NOTE | 2021-11-09 10:02 | P.PN ---
Subjective Progress Note Date: 11/09/21 History of present illness this is an 81-year-old patient with a past medical history significant for Alzheimer's dementia, laryngeal cancer with surgery and radiation, colon cancer with bowel resection, chronic type B aortic dissection monitored by cardiology, hypothyroidism, coronary artery disease, hyperlipidemia, hypertension, patient is a former smoker quit in 1991. patient admitted to the emergency room 2 days ago for altered mental status way stated that he had been constipated since Tuesday and hasn't urinated since the day before. Patient was straight cath during the ER visit and subsequently sent home. yesterday patient developed increased redness and swelling to the tip of his penis. He became more combative with his . Patient has testicular swelling penile discharge and redness to the penis. At this time patient is found resting in bed. He refuses examiner to assess penis. Was able to see the penis from a pitcher that the has at the bedside. The glans is edematous with erythema and purulent drainage. Patient still has not had a bowel movement. And no urinary output per the . Patient did not sleep well last night. He did finally fall asleep early this morning. has been at the bedside. 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 Due to patient's debility is unable to manage at home. patient remained afebrile, heart rate 72, respirations 16, blood pressure 1 4792, pulse ox 93% on room air. WBC 9.0, hemoglobin 14.5, platelets 256, potassium 3.7,B UN 17, creatinine 0.97. urinalysis is unremarkable. His PVR was greater the 310ml 11/08: Patient is found sleeping. is at the bedside. Patient has indwelling catheter in place with clear output. Per the nurse patient slept well during the evening had one episode of attempting to get out of bed in the morning however he was able to be redirected. Plan for patient to be admitted to [facility] for subacute rehab. Social work, PT/OT consult and place. Patient will be started on Xanax 0.25 daily as needed for agitation. Patient is afebrile, pulse rate 91, respirations 18 blood pressure 143/83 pulse ox 93% on room air. 11/09: Urology has recommended maintaining Cervantes catheter for 1 week and to voiding trial at [facility], continue Flomax. Patient has been afebrile, heart rate 75, blood pressure 129/82, pulse ox 90-91% on room air. Patient remains confused. Patient will be discharged once arrangements are completed. Review Of Systems: unable to obtain due to mental status Physical examination General Appearance: Alert, cooperative, no distress, appears stated age. Neck HEENT: Supple, no lymphadenopathy, no thyroid enlargement, no carotid bruits. Lungs: Clear to auscultation without crackles or wheezes no rhonchi, no deformity. Chest Wall: Chest wall normal expansion with deep inspiration no tenderness and no deformity was found on exam, no costochondral pain or discomfort. Heart: Regular rate and rhythm, S1, S2 normal, no murmur, rub or gallop. Back: Symmetric, no curvature, ROM normal, no CVA tenderness. Abdomen: Soft, non-tender, no rebound or rigidity, no hepatosplenomegaly. Extremities: Extremities normal, atraumatic, no cyanosis or edema. Pulses: 2+ and symmetric. Skin: paraphimosis and glans erythemic and edematous. With purulent drainage. Skin color, texture, tugor normal, no rashes or lesions. Neurologic: Alert oriented x1 Assessment and plan 1. Paraphimosis and dysuria: Urinalysis unremarkable, urology consult is appreciated, indwelling catheter in place to leave in for 1 week. 2. Balanitis: urology consult appreciated, Levaquin 250 mg daily, Mupirocin triamcinolone 3. Constipation: Senokot-s 1 tab BID. 4. Debility: Consult PT/OT, SW for possible subacute rehab. 5. History of severe Alzheimer's dementia. Remeron 7.5 mg by mouth at bedtime 6. Abdominal aortic aneurysm which is being watched by cardiology. 7. History of coronary artery disease. continue with aspirin, atenolol 25 mg by mouth twice a day, 8. History of throat cancer status post radiation. Remission. 9. History of colon cancer status post bowel resection. Remission. 10. Hypothyroidism. No medications at this time. 11. Remote history of tobacco use. Stable 12. DVT prophylaxis. Heparin subcu every 12 hours. 13. GI prophylaxis. Protonix 40 mg daily. Discharge plan: To be determined/[facility] Impression and plan of care have been directed as dictated by the signing physician. Sofia Goodwin nurse practitioner acting as scribe for signing physician. Objective - Vital Signs Vital signs: Vital Signs Temp 97.9 F 11/08/21 21:00 Pulse 99 11/09/21 08:03 Resp 20 11/08/21 21:00 BP 184/83 11/09/21 08:03 Pulse Ox 90 L 11/08/21 21:00 Intake & Output 11/08/21 11/09/21 11/09/21 18:59 06:59 18:59 Intake Total 50 Output Total 250 600 Balance -250 -550 Intake: Oral 50 Output: Urine 250 600 Uretheral (Cervantes) 600 Other: Voiding Method Indwelling Catheter Indwelling Catheter Diaper Indwelling Catheter # Voids 0 # Bowel Movements 0 0 - Labs CBC & Chem 7: 11/06/21 22:52 11/06/21 22:52
[2021-11-09] MEDS: ACETAMINOPHEN TAB 325 MG TAB PO PRN ×2 (11:52→19:58)
[2021-11-09] MEDS: MIRTAZAPINE 15 MG TAB PO SCH ×2 (16:27→17:35)
[2021-11-09 17:04] VITALS: BMI 17.5
[2021-11-09] MEDS: LORazepam 0.5 MG TAB PO PRN (18:49)
[2021-11-10] MEDS: LEVOTHYROXINE 50 MCG TAB PO SCH (05:09)
[2021-11-10] MEDS: LORazepam 0.5 MG TAB PO PRN (05:09)
[2021-11-10] MEDS: atenoloL 25 MG TAB PO SCH ×2 (08:26→08:32)
[2021-11-10] MEDS: ASPIRIN 325 MG TAB PO SCH ×2 (08:26→08:33)
[2021-11-10] MEDS: HEPARIN SODIUM,PORCINE/PF 5,000 UNIT/0.5 ML SYRINGE SQ SCH (08:26)
[2021-11-10] MEDS: TRIAMCINOLONE 0.1% CREAM 80 GM TUBE TOPICAL SCH (08:27)
[2021-11-10] MEDS: TAMSULOSIN 0.4 MG CAP.ER.24H PO SCH ×2 (08:27→08:33)
[2021-11-10] MEDS: MUPIROCIN 2% OINT 22 GM TUBE TOPICAL SCH (08:27)
[2021-11-10] MEDS: SENNOSIDES-DOCUSATE SODIUM 1 EACH TAB PO SCH ×2 (08:27→08:33)
[2021-11-10] MEDS: PANTOPRAZOLE 40 MG TABLET PO SCH ×2 (08:29→08:33)
--- NOTE | 2021-11-10 09:40 | P.PN ---
Subjective Progress Note Date: 11/10/21 History of present illness this is an 81-year-old patient with a past medical history significant for Alzheimer's dementia, laryngeal cancer with surgery and radiation, colon cancer with bowel resection, chronic type B aortic dissection monitored by cardiology, hypothyroidism, coronary artery disease, hyperlipidemia, hypertension, patient is a former smoker quit in 1991. patient admitted to the emergency room 2 days ago for altered mental status way stated that he had been constipated since Tuesday and hasn't urinated since the day before. Patient was straight cath during the ER visit and subsequently sent home. yesterday patient developed increased redness and swelling to the tip of his penis. He became more combative with his . Patient has testicular swelling penile discharge and redness to the penis. At this time patient is found resting in bed. He refuses examiner to assess penis. Was able to see the penis from a pitcher that the has at the bedside. The glans is edematous with erythema and purulent drainage. Patient still has not had a bowel movement. And no urinary output per the . Patient did not sleep well last night. He did finally fall asleep early this morning. has been at the bedside. 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 Due to patient's debility is unable to manage at home. patient remained afebrile, heart rate 72, respirations 16, blood pressure 1 4792, pulse ox 93% on room air. WBC 9.0, hemoglobin 14.5, platelets 256, potassium 3.7,B UN 17, creatinine 0.97. urinalysis is unremarkable. His PVR was greater the 310ml 11/08: Patient is found sleeping. is at the bedside. Patient has indwelling catheter in place with clear output. Per the nurse patient slept well during the evening had one episode of attempting to get out of bed in the morning however he was able to be redirected. Plan for patient to be admitted to [facility] for subacute rehab. Social work, PT/OT consult and place. Patient will be started on Xanax 0.25 daily as needed for agitation. Patient is afebrile, pulse rate 91, respirations 18 blood pressure 143/83 pulse ox 93% on room air. 11/09: Urology has recommended maintaining Cervantes catheter for 1 week and to voiding trial at [facility], continue Flomax. Patient has been afebrile, heart rate 75, blood pressure 129/82, pulse ox 90-91% on room air. Patient remains confused. Patient will be discharged once arrangements are completed. 11/10: Patient remains with sitter at the bedside. Cervantes catheter is in place. Patient is off all IV medications. We are waiting for acceptance at skilled nursing for the patient will be discharged once this is completed. Patient is afebrile, heart rate 68, blood pressure 133/83, pulse ox 95% Review Of Systems: unable to obtain due to mental status Physical examination General Appearance: Alert, cooperative, no distress, appears stated age. Neck HEENT: Supple, no lymphadenopathy, no thyroid enlargement, no carotid bruits. Lungs: Clear to auscultation without crackles or wheezes no rhonchi, no deformity. Chest Wall: Chest wall normal expansion with deep inspiration no tenderness and no deformity was found on exam, no costochondral pain or discomfort. Heart: Regular rate and rhythm, S1, S2 normal, no murmur, rub or gallop. Back: Symmetric, no curvature, ROM normal, no CVA tenderness. Abdomen: Soft, non-tender, no rebound or rigidity, no hepatosplenomegaly. Extremities: Extremities normal, atraumatic, no cyanosis or edema. Pulses: 2+ and symmetric. Skin: paraphimosis and glans erythemic and edematous. With purulent drainage. Skin color, texture, tugor normal, no rashes or lesions. Neurologic: Alert oriented x1 Assessment and plan 1. Paraphimosis and dysuria: Urinalysis unremarkable, urology consult is appreciated, indwelling catheter in place to leave in for 1 week. 2. Balanitis: urology consult appreciated, Levaquin 250 mg daily, Mupirocin tri amcinolone 3. Constipation: Senokot-s 1 tab BID. 4. Debility: Consult PT/OT, SW for possible subacute rehab. 5. History of severe Alzheimer's dementia. Remeron 7.5 mg by mouth at bedtime 6. Abdominal aortic aneurysm which is being watched by cardiology. 7. History of coronary artery disease. continue with aspirin, atenolol 25 mg by mouth twice a day, 8. History of throat cancer status post radiation. Remission. 9. History of colon cancer status post bowel resection. Remission. 10. Hypothyroidism. No medications at this time. 11. Remote history of tobacco use. Stable 12. DVT prophylaxis. Heparin subcu every 12 hours. 13. GI prophylaxis. Protonix 40 mg daily. Discharge plan: Subacute rehab Impression and plan of care have been directed as dictated by the signing physician. Sofia Goodwin nurse practitioner acting as scribe for signing physician. Objective - Vital Signs Vital signs: Vital Signs Temp 97.9 F 11/09/21 19:51 Pulse 68 11/10/21 08:00 Resp 16 11/09/21 20:00 BP 133/83 11/09/21 19:51 Pulse Ox 95 11/09/21 19:51 Intake & Output 11/09/21 11/10/21 11/10/21 18:59 06:59 18:59 Intake Total 780 480 Output Total 450 1200 Balance 330 -720 Weight 46.266 kg Intake: Oral 780 480 Output: Urine 450 1200 Other: Voiding Method Diaper Diaper Diaper Indwelling Catheter Indwelling Catheter Indwelling Catheter # Voids 0 # Bowel Movements 0 - Labs CBC & Chem 7: 11/06/21 22:52 11/06/21 22:52
[2021-11-10 12:27] VITALS: BP 138/87; PULSE 75; RESP 19; TEMP 98.5
== END 2021-11-10 13:31 | DRG 728 ==
LOC: EC 19:35 → 5NMEDONC 23:30
PROVIDERS: ADMIT Internal Medicine Geriatric Medicine; ATTEND Internal Medicine Geriatric Medicine
DX: N47.2 Paraphimosis (principal); N48.1 Balanitis; N50.82 Scrotal pain; N50.89 Other specified disorders of the male genital organs; F02.80 Dementia in other diseases classified elsewhere, unspecified severity, without behavioral disturbance, psychotic disturbance, mood disturbance, and anxiety; G30.9 Alzheimer's disease, unspecified; E78.5 Hyperlipidemia, unspecified; I10 Essential (primary) hypertension; I25.10 Atherosclerotic heart disease of native coronary artery without angina pectoris; Z79.82 Long term (current) use of aspirin; E03.9 Hypothyroidism, unspecified; J44.9 Chronic obstructive pulmonary disease, unspecified; K59.00 Constipation, unspecified; R30.0 Dysuria; R33.8 Other retention of urine; I71.4 Abdominal aortic aneurysm, without rupture; Z79.890 Hormone replacement therapy; Z79.899 Other long term (current) drug therapy; Z82.49 Family history of ischemic heart disease and other diseases of the circulatory system; Z82.5 Family history of asthma and other chronic lower respiratory diseases; Z85.038 Personal history of other malignant neoplasm of large intestine; Z85.21 Personal history of malignant neoplasm of larynx; Z85.819 Personal history of malignant neoplasm of unspecified site of lip, oral cavity, and pharynx; Z87.891 Personal history of nicotine dependence; Z90.49 Acquired absence of other specified parts of digestive tract; Z92.3 Personal history of irradiation; Z63.4 Disappearance and death of family member; Z87.01 Personal history of pneumonia (recurrent); Z87.19 Personal history of other diseases of the digestive system
CPT/HCPCS: 36415; 51798; 71046; 74018; 80053; 80306; 81003; 83605; 83735; 84100; 84484; 85025; 85610; 85730; 87040; 93005; 96361; 96365; 96375; 96376; 99285